=== PATIENT | female | born 1965 | race American Indian/Alaskan Native ===

== ENCOUNTER 2016-05-22 00:37 | Inpatient (IN) | payer MEDICAID ==
[2016-05-22 01:35] LABS: Basophils % (Auto) 0.8 % (0.0-1.8); Eosinophils % (Auto) 0.3 % (0.0-4.3); Hemoglobin 13.4 gm/dl (10.1-14.3); Mean Corpuscular HGB Conc 34 % (30-34); Mean Corpuscular Hemoglobin 33 pg (28-32); Mean Corpuscular Volume 98 fl (79-97); Platelet Count 159 K/mm3 (140-440); Red Blood Count 4.08 M/mm3 (3.65-5.03); Red Cell Distribution Width 13.9 % (13.2-15.2); White Blood Count 6.5 K/mm3 (4.5-11.0)
--- NOTE | 2016-05-22 01:39 | Emergency Department Report ---
ED General Adult HPI - General Chief complaint: Syncope Stated complaint: SYNCOPE EPISODE Time Seen by Provider: 05/22/16 01:20 Source: patient, EMS, RN notes reviewed Mode of arrival: Stretcher Limitations: No Limitations - History of Present Illness Initial comments: Is a 51-year-old female, previously unknown to me. Her primary care doctor is Dr. Katz. She is a past medical history of hypertension, high cholesterol, hypothyroidism, and takes estradiol. She is brought to the hospital by EMS for syncope and generalized weakness. Patient reports feeling ill" all day." She reports multiple episodes of nausea and vomiting, inability to tolerate liquid feeds. She also describes cough and spitting up. Patient reports that she was walking to her son's room, and then had a sudden onset of syncope/loss of consciousness. Prior to the event, there was no severe chest pain, no severe headache or posterior neck pain. Since her event, she landed on her head and complains of left-sided facial pain. There is no midline spinal pain. There is no extremity weakness. There is no extremity numbness. There is no bladder or bowel retention or incontinence, there is no saddle anesthesia. There is no hematemesis, there is no bright red blood per rectum. Patient reports compliance with her medications, and states no new medications. EMS documented a blood pressure in the field of 92/64. Patient was then found to be hypotensive again, with a blood pressure of 82/55. Upon arrival to the ER, patient had a blood pressure of 83/57. Repeat blood pressure was in the 100s. Patient reports that her weakness is constant. It increases with physical exertion, decreases with rest. There is no posterior leg pain. No recent trips greater than 4 hours. No recent hospital admissions. Patient did describe some chest tightness and pressure. -: Sudden Location: head, chest, abdomen Severity scale (0 -10): 7 Quality: aching Consistency: intermittent Improves with: rest Worsens with: movement Associated Symptoms: chest pain, cough, headaches, loss of appetite, malaise, nausea/vomiting, syncope, weakness - Related Data Home Medications Medication Instructions Recorded Confirmed Last Taken Estradiol 2 mg PO DAILY 05/22/16 05/22/16 Unknown Fenofibrate [Tricor] 145 mg PO QDAY 05/22/16 05/22/16 Unknown Fluticasone [Flonase] 1 spray NS QDAY 05/22/16 05/22/16 Unknown Levothyroxine [Synthroid] 125 mcg PO QAM 05/22/16 05/22/16 Unknown Vortioxetine Hydrobromide 10 mg PO DAILY 05/22/16 05/22/16 Unknown [Trintellix] traZODone [Desyrel] 100 mg PO QHS 05/22/16 05/22/16 Unknown Previous Rx's Medication Instructions Recorded Last Taken Type ALBUTEROL NEB's [Proventil 0.083% 2.5 mg IH TID PRN #90 nebu 05/24/16 Unknown Rx NEBS] Azithromycin [Zithromax TAB] 250 mg PO QDAY #4 tablet 05/24/16 Unknown Rx Ipratropium/Albuterol Sulfate 1 spray IH QID #1 aer.w.adap 05/24/16 Unknown Rx [Combivent Respimat] Nicotine [Habitrol] 7 mg TD QDAY PRN #30 patch 05/24/16 Unknown Rx Ondansetron [Zofran Odt] 4 mg PO Q6H #30 tab.rapdis 05/24/16 Unknown Rx guaiFENesin/CODEINE [Robitussin AC] 5 ml PO Q4H PRN #1 bottle 05/24/16 Unknown Rx predniSONE [Deltasone] 20 mg PO QDAY #5 tablet 05/24/16 Unknown Rx Allergies Allergy/AdvReac Type Severity Reaction Status Date / Time No Known Allergies Allergy Unverified 05/22/16 01:07 ED Review of Systems ROS: Stated complaint: SYNCOPE EPISODE Other details as noted in HPI Constitutional: malaise, weakness Eyes: denies: vision change ENT: denies: epistaxis Respiratory: see HPI Cardiovascular: syncope Gastrointestinal: as per HPI Genitourinary: as per HPI Musculoskeletal: as per HPI Skin: as per HPI Neurological: weakness ED Past Medical Hx - Medications Home Medications: Home Medications Medication Instructions Recorded Confirmed Last Taken Type Estradiol 2 mg PO DAILY 05/22/16 05/22/16 Unknown History Fenofibrate [Tricor] 145 mg PO QDAY 05/22/16 05/22/16 Unknown History Fluticasone [Flonase] 1 spray NS QDAY 05/22/16 05/22/16 Unknown History Levothyroxine [Synthroid] 125 mcg PO QAM 05/22/16 05/22/16 Unknown History Vortioxetine Hydrobromide 10 mg PO DAILY 05/22/16 05/22/16 Unknown History [Trintellix] traZODone [Desyrel] 100 mg PO QHS 05/22/16 05/22/16 Unknown History ALBUTEROL NEB's [Proventil 0.083% 2.5 mg IH TID PRN #90 nebu 05/24/16 Unknown Rx NEBS] Azithromycin [Zithromax TAB] 250 mg PO QDAY #4 tablet 05/24/16 Unknown Rx Ipratropium/Albuterol Sulfate 1 spray IH QID #1 aer.w.adap 05/24/16 Unknown Rx [Combivent Respimat] Nicotine [Habitrol] 7 mg TD QDAY PRN #30 patch 05/24/16 Unknown Rx Ondansetron [Zofran Odt] 4 mg PO Q6H #30 tab.rapdis 05/24/16 Unknown Rx guaiFENesin/CODEINE [Robitussin AC] 5 ml PO Q4H PRN #1 bottle 05/24/16 Unknown Rx predniSONE [Deltasone] 20 mg PO QDAY #5 tablet 05/24/16 Unknown Rx ED Physical Exam - General Limitations: No Limitations General appearance: alert, in no apparent distress - Head Head exam: Present: atraumatic, normocephalic - Eye Eye exam: Present: normal appearance, EOMI. Absent: nystagmus - ENT ENT exam: Present: normal exam, normal orophraynx, mucous membranes moist, normal external ear exam - Neck Neck exam: Present: normal inspection, full ROM. Absent: tenderness, meningismus - Respiratory Respiratory exam: Present: normal lung sounds bilaterally. Absent: respiratory distress, wheezes, rales, rhonchi, stridor, chest wall tenderness - Cardiovascular Cardiovascular Exam: Present: regular rate, normal rhythm, normal heart sounds. Absent: bradycardia, tachycardia, irregular rhythm, systolic murmur, diastolic murmur, rubs, gallop - GI/Abdominal GI/Abdominal exam: Present: soft, tenderness (mild diffuse abdominal tenderness , no rebound, guarding or peritoneal signs.), normal bowel sounds. Absent: distended, guarding, rebound, rigid, pulsatile mass - Rectal Rectal exam: Present: normal inspection, normal rectal tone, heme (-) stool, other (during the rectal examination, I am escorted by ER nurse Armida Garcia) - Extremities Exam Extremities exam: Present: normal inspection, full ROM, normal capillary refill. Absent: tenderness, pedal edema, joint swelling, calf tenderness - Back Exam Back exam: Present: normal inspection, full ROM. Absent: tenderness, CVA tenderness (R), CVA tenderness (L), muscle spasm, paraspinal tenderness, vertebral tenderness - Neurological Exam Neurological exam: Present: alert, oriented X3, other (Extraocular movements intact. Tongue midline. No facial droop. Facial sensation intact to light touch in the V1, V2, V3 distribution bilaterally. 5 and 5 strength in 4 extremities.. Sensation is intact to light touch in 4 extremities.). Absent: motor sensory deficit - Psychiatric Psychiatric exam: Present: normal affect, normal mood - Skin Skin exam: Present: warm, dry, intact, normal color. Absent: rash ED Course Vital Signs 05/22/16 05/22/16 05/22/16 01:03 01:37 01:43 Temperature 97.9 F 97.2 F L Pulse Rate 71 76 Respiratory 20 20 Rate Blood Pressure 83/57 Blood Pressure 103/75 [Right] O2 Sat by Pulse 100 97 97 Oximetry 05/22/16 05/22/16 05/22/16 03:00 05:00 06:01 Temperature Pulse Rate 78 77 Respiratory 20 20 20 Rate Blood Pressure Blood Pressure 100/60 93/53 [Right] O2 Sat by Pulse 97 97 Oximetry 05/22/16 05/22/16 05/22/16 06:31 07:00 09:00 Temperature 97.8 F Pulse Rate 68 Respiratory 20 18 20 Rate Blood Pressure Blood Pressure 100/55 98/51 [Right] O2 Sat by Pulse 100 96 Oximetry 05/22/16 05/22/16 05/22/16 11:00 14:03 19:47 Temperature 97.8 F Pulse Rate 89 64 Respiratory 16 16 16 Rate Blood Pressure Blood Pressure 104/66 98/51 100/51 [Right] O2 Sat by Pulse 97 100 97 Oximetry 05/22/16 20:14 Temperature Pulse Rate Respiratory 18 Rate Blood Pressure Blood Pressure [Right] O2 Sat by Pulse Oximetry - Reevaluation(s) Reevaluation #1: 05/22/16 02:17 Differential diagnosis: Vasovagal event, orthostasis, volume depletion, electrolyte imbalance, concussion, arrhythmia, pulmonary embolus, structural cardiac disease, acute coronary syndrome, aortic disease Assessment and plan: 51-year-old female with multiple documented episodes of hypotension, and reported nausea and vomiting. Clinically, I think the patient is most likely volume depleted. Her blood pressure is in the 100s. She has a GCS of 15, with an NIH score of 0. She has no pulmonary embolus or DVT risk factors, and she is low risk by well's criteria. There is no midline cervical spine pain or tenderness, and she is cleared through the [place] C-spine rules , as well as through the Nexus criteria. She was rectally afebrile, with brown stool that was guaiac negative. 2 L of IV fluid are ordered. She is found to be hypokalemic. Magnesium is pending. D-dimer is pending. Chest x-ray is negative. Plan to admit for hypotension, syncope. Reevaluation #2: 05/22/16 05:[address] scan of the head negative. CT scan of the chest, abdomen and pelvis pending. Laboratory studies demonstrated hyperthyroidism and hypo- kalemia. Given syncope, chest pressure, hypotension, patient to be admitted for further management. Case is discussed with the Hospital physician, Dr. Powell, who accepts the patient to his service. Patient will remain in the ER pending results of the CAT scan chest, abdomen and pelvis. Reevaluation #3: 05/22/16 05:46 cta chest negative 05/22/16 06:08 ED Medical Decision Making - Lab Data Result diagrams: 05/22/16 01:24 05/23/16 05:13 Vital Signs 05/22/16 05/22/16 05/22/16 01:03 01:37 01:43 Temperature 97.9 F 97.2 F L Pulse Rate 71 76 Respiratory 20 20 Rate Blood Pressure 83/57 Blood Pressure 103/75 [Right] O2 Sat by Pulse 100 97 97 Oximetry Lab Results 05/22/16 05/22/16 Range/Units 01:24 01:24 WBC 6.5 (4.5-11.0) K/mm3 RBC 4.08 (3.65-5.03) M/mm3 Hgb 13.4 (10.1-14.3) gm/dl Hct 40.0 (30.3-42.9) % MCV 98 H (79-97) fl MCH 33 H (28-32) pg MCHC 34 (30-34) % RDW 13.9 (13.2-15.2) % Plt Count 159 (140-440) K/mm3 Lymph % (Auto) 37.7 H (13.4-35.0) % [place] % (Auto) 5.9 (0.0-7.3) % Eos % (Auto) 0.3 (0.0-4.3) % Baso % (Auto) 0.8 (0.0-1.8) % Lymph # 2.5 (1.2-5.4) K/mm3 [place] # 0.4 (0.0-0.8) K/mm3 Eos # 0.0 (0.0-0.4) K/mm3 Baso # 0.1 (0.0-0.1) K/mm3 Seg Neutrophils % 55.3 (40.0-70.0) % Seg Neutrophils # 3.6 (1.8-7.7) K/mm3 Sodium 134 L (137-145) mmol/L Potassium 3.0 L (3.6-5.0) mmol/L Chloride 94.3 L (98-107) mmol/L Carbon Dioxide 21 L (22-30) mmol/L Anion Gap 22 mmol/L BUN 10 (7-17) mg/dL Creatinine 0.8 (0.7-1.2) mg/dL Estimated GFR > 60 ml/min BUN/Creatinine Ratio 12.50 % Glucose 100 (65-100) mg/dL Calcium 8.7 (8.4-10.2) mg/dL Troponin T < 0.010 (0.00-0.029) ng/mL - EKG Data When compared to previous EKG there are: previous EKG unavailable 05/22/16 02:19 normal sinus, 63 bpm, low voltage, QTC 454 ms, not morphologically consistent with STEMI. - Radiology Data Radiology results: image reviewed interpreted by me: Chest x-ray within normal limits Critical care attestation.: If time is entered above; I have spent that time in minutes in the direct care of this critically ill patient, excluding procedure time. ED Disposition Clinical Impression: Hypotension, Syncope, Hypokalemia Disposition: OP ADMITTED IP TO THIS HOSP Is pt being admited?: Yes Condition: Good
[2016-05-22 01:57] LABS: Blood Urea Nitrogen 10 mg/dL (7-17); Calcium 8.7 mg/dL (8.4-10.2); Carbon Dioxide 21 mmol/L (22-30); Chloride 94.3 mmol/L (98-107); Glucose 100 mg/dL (65-100); Sodium 134 mmol/L (137-145)
[2016-05-22 01:59] LABS: Anion Gap 22 mmol/L
[2016-05-22] MEDS ORDERED: NACL 0.9% 1000 ML IV ONE (02:00)
[2016-05-22] MEDS ORDERED: ZOFRAN IV ONE (02:13)
[2016-05-22] MEDS ORDERED: K-DUR PO ONE (02:13)
[2016-05-22 02:20] LABS: Urine Drugs of Abuse Note Disclamer
[2016-05-22 02:40] LABS: Bacteria,Urine 4+ /HPF (Negative); Bilirubin,Urine NEG (Negative); Blood,Urine NEG (Negative); Ketones,Urine NEG (Negative); Leukocyte Esterase,Urine NEG (Negative); Mucus,Urine FEW /HPF; Nitrite,Urine NEG (Negative); Protein,Urine <15 mg/dL mg/dL (Negative); Urobilinogen,Urine < 2.0 mg/dL (<2.0)
[2016-05-22 02:51] LABS: INR 1.85 (0.87-1.13)
[2016-05-22] MEDS ORDERED: NACL ONE (03:00)
[2016-05-22] MEDS: KCL 10MEQ/100ML 100 ML IV SCH ×2 (03:36→06:51)
--- NOTE | 2016-05-22 05:12 | Cat Scan Report ---
FINAL REPORT PROCEDURE: CT HEAD/BRAIN WO CON TECHNIQUE: Computerized tomography of the head was performed without contrast material. HISTORY: headache syncope COMPARISON: No prior studies are available for comparison. FINDINGS: Skull and scalp: Normal. Paranasal sinuses: Normal. Ventricles and subarachnoid spaces: Normal. Cerebrum: No evidence of hemorrhage, acute infarction or mass . Cerebellum and brainstem: No evidence of hemorrhage, acute infarction or mass. Vasculature: Normal. Comments: None. IMPRESSION: Normal Examination
[2016-05-22] MEDS ORDERED: TORADOL IV ONE (05:46)
--- NOTE | 2016-05-22 06:04 | Cat Scan Report ---
FINAL REPORT PROCEDURE: CT ANGIO CHEST TECHNIQUE: Computerized tomographic angiography of the chest was performed after the IV injection of iodinated nonionic contrast including image processing. The image data was postprocessed using 2-dimensional multiplanar reformatted (MPR) and 3-dimensional (MIP and/or volume rendered) techniques. HISTORY: ? pe syncope COMPARISON: No prior studies are available for comparison. FINDINGS: Heart and pericardium: Normal. Thoracic aorta: Normal. Pulmonary vasculature: Normal. Lymph nodes: No enlarged thoracic lymph nodes. Lungs: There is interlobular pulmonary septal thickening suggesting pulmonary edema versus interstitial pneumonitis. There is no airspace consolidation. There are scattered benign-appearing cysts. There are no effusions or pneumothoraces.. Musculoskeletal structures: No significant abnormality. Upper abdominal structures: No significant abnormality. IMPRESSION: There is no thoracic aortic aneurysm or dissection. There is no pulmonary embolism. There is interlobular pulmonary septal thickening suggesting pulmonary edema versus interstitial pneumonitis. There is no airspace consolidation. There are scattered benign-appearing cysts. There are no effusions or pneumothoraces.
--- NOTE | 2016-05-22 06:20 | Cat Scan Report ---
FINAL REPORT PROCEDURE: CT ABDOMEN PELVIS W CON TECHNIQUE: Computerized axial tomography of the abdomen and pelvis was performed after the IV injection of iodinated nonionic contrast. HISTORY: cp syncope abd pain n/v COMPARISON: No prior studies are available for comparison. FINDINGS: Visualized lower thorax: No significant abnormality. Liver: Normal size and attenuation. Spleen: Normal size and attenuation. Gallbladder and biliary system: Normal. Pancreas: Normal. Adrenals: Normal. Kidneys: Normal. GI tract: There are diverticula of the colon. There is no diverticulitis or colitis, obstruction or mass. The appendix is normal. The stomach and small bowel are unremarkable.. Lymph nodes and mesentery: Normal. Vasculature: Normal. Bladder: Normal. Reproductive organs: Uterus and ovaries are unremarkable.. Peritoneum: There is no ascites, free air, abscess or adenopathy.. Musculoskeletal structures: No significant abnormality. Other: None. IMPRESSION: There are diverticula of the colon. There is no diverticulitis or colitis, obstruction or mass. The appendix is normal. The stomach and small bowel are unremarkable.. Uterus and ovaries are unremarkable.. There is no ascites, free air, abscess or adenopathy..
--- NOTE | 2016-05-22 07:23 | XRay Report ---
ROUTINE CHEST, TWO VIEWS: HISTORY: Shortness of breath. The trachea, heart, mediastinal contour, lung lora and bony thorax are unremarkable. IMPRESSION: Unremarkable chest x-ray.
--- NOTE | 2016-05-22 08:10 | Admit Criteria Form ---
Admission Criteria Documentation: CARDIOLOGY GRG Clinical Indications for Admission to Inpatient Care ( Place 'X' for any and all applicable criteria): Hospital admission is needed for appropriate care of the patient because of ANY ONE of the following (1): [X ] I. Hemodynamic instability as indicated by ALL of the following (1)(2)(3 )(4)(5) [ X]a) Vital signs or other findings not as expected for chronic patient condition or baseline [ X]b) Instability indicated by ANY ONE of the following: [X ]i) Hypotension [ ]ii) Symptomatic Tachycardia unresponsive to treatment ( e.g., analgesia, fluids, sedation as indicated) [ ]iii) Inadequate perfusion indicated by ANY ONE of the following: [ ] 1) Lactic acidosis (> 2 mmol/L) [ ] 2) New abnormal capillary refill (> 3 seconds) [ ] 3) Reduced urine output [ ] 4) New altered mental status [ ]iv) Orthostatic vital sign changes unresponsive to treatment (e.g., fluids) [ ]v) IV inotropic or vasopressor medication required to maintain adequate blood pressure or perfusion [ ] II. Severe heart failure as indicated by ANY ONE of the following(17)(18) [ ]a) Respiratory distress [ ]b) Hypotension [ ]c) Anasarca (refractory to outpatient therapy) [ ]d) Cardiac arrhythmias of immediate concern [ ]e) Myocardial ischemia [ ] III. Cardiac arrhythmias or findings of immediate concern indicated by ANY ONE of the following (19)(20): [ ] a) Heart rhythms that are inherently dangerous or unstable indicated by ANY ONE of the following (21)(22)(23): [ ] i) Resuscitated ventricular fibrillation or cardiac arrest [ ] ii) Ventricular escape rhythm [ ] iii) Sustained ventricular tachycardia (30 seconds or more of ventricular rhythm at greater than 100 beats per minute) [ ] iv) Nonsustained ventricular tachycardia and ANY ONE of the following: [ ] 1) Suspected cardiac ischemia as cause or consequence of ventricular tachycardia [ ] 2) In setting of acute myocarditis [ ] b) Unstable cardiac conduction defects indicated by ANY ONE of the following(23)(24)(25) [ ] i) Type II second-degree atrioventricular block [ ]ii) Third-degree atrioventricular block [ ]iii) New-onset left bundle branch block with suspected myocardial ischemia [ ]c) Any heart rhythm and ANY ONE of the following (21)(22)(26)(27) (28) [ ] i) Continuous long-term ECG monitoring needed (e.g., initiation of drug requiring monitoring for more than 24 hours) [ ] ii) Patient has automatic implanted cardioverter defibrillator that is repeatedly firing, malfunctioning, or in need of immediate adjustment of settings beyond the scope of ambulatory or observation care [ ]d) Heart rhythms of concern due to ANY ONE of the following: [ ] i) Hypotension [ ] ii) Respiratory distress [ ] iii) Association with other significant symptoms (e.g., bradycardia with syncope or ongoing dizziness, supraventricular tachycardia with chest pain (14)(15)(17) [ ] IV. Monitoring for cardiac contusion beyond the scope of observation care needed [A](30)(31)(32) [ ] V. Surgical or device complication (e.g., valve replacement complication , pacemaker dysfunction) (35)(41)(44)(45)(46) [ ] . Inpatient palliative care needed. [B](49) Also use Inpatient Palliative Care Criteria [ ] VII. Nonbacterial thrombotic (marantic) endocarditis (36)(43)(47)(48) [ ] VIII. Cardiology condition, symptom, or finding for which emergency and observation care has failed or are not considered appropriate. [ ] IX. Acute valvular disease requiring inpatient as indicated by ANY ONE of the following (41) [ ]a) Acute valvular regurgitation (42) [ ]b) Noninfectious valvulitis (43) [ ]c) Obstructive valve thrombosis [ ]d) Paravalvular leak [ ]e) Other significant valvular disorder remaining after emergency or observation level of care (as appropriate) [ ]X. Pericardial disease requiring inpatient treatment as indicated by ANY ONE of the following (33)(34)(35)(36)(37) [ ]a) Suspected tamponade (38)(39)(40) [ ]b) Hemopericardium [ ]c) Other significant pericardial disorder remaining after emergency or observation level of care (as appropriate) [ ] XI. Cardiac ischemia beyond scope of emergency and observation care. [ ] XII. Hypertension requiring inpatient treatment as indicated by ANY ONE of the following (6)(7)(8) [ ]a) SBP greater than 220 mm Hg or DBP greater than 120 mmHg despite treatment [ ]b) SBP greater than 140 mm Hg or DBP greater than 100 mm Hg with evidence of acute end organ damage as indicated by ANY ONE of the following [ ] i) Altered mental status [ ] ii) Acute renal failure as indicated by new onset of ANY ONE of the following (9)(10)(11)(12)(13) [ ]1) 3-fold rise in serum creatinine from baseline [ ]2) Serum creatinine greater than 4 mg/dL ( 354 micromoles/L) with acute rise greater than 0.5 mg/dL (44.2 micromoles/L) [ ]3) Reduction of more than 75% in estimated glomerular filtration rate from baseline [ ]4) Estimated glomerular filtration rate less than 35 mL/min/1.73m2 (0.59 mL/sec/1.73m2) in child up to 18 years of age [ ]5) Cessation of urine output indicated by ALL of the following [ ]A. Adequate volume status [ ]B. Inadequate urine output as indicated by ANY ONE of the following [ ]a. Urine output less than 0.3 mL/kg/hr for 24 hours [ ]b. Anuria (urine output less than 0.1 mL/kg/hr) for 12 hours [ ] iii) Aortic dissection [ ] iv) Myocardial Ischemia [ ] v) Left ventricular heart failure [ ]vi) Retinal Hemorrhage [ ]vii) Other significant finding [ ]c) Hypertension in child requiring inpatient treatment as indicated by ALL of the following(14)(15)(16) [ ] i) Outpatient treatment not effective, not available, or not appropriate [ ]ii) SBP or DBP greater than 95th percentile for age [ ]iii) Evidence of acute end organ damage as indicated by ANY ONE of the following [ ]1) Altered mental status [ ]2) Acute renal failure as indicated by new onset of ANY ONE of the following(9)(10)(11)(12)(13) [ ]A. 3-fold rise in serum creatinine from baseline [ ]B. Serum creatinine greater than 4 mg/dL (354 micromoles/L) with acute rise greater than 0.5 mg/dL (44.2 micromoles/L) [ ]C. Reduction of more than 75% in estimated glomerular filtration rate from baseline [ ]D. Estimated glomerular filtration rate less than 35 mL/min/1.73m2 (0.59 mL/sec/1.73m2) in child up to 18 years of age [ ]E. Cessation of urine output indicated by ALL of the following [ ]a. Adequate volume status [ ]b. Inadequate urine output as indicated by ANY ONE of the following [ ]i) Urine output less than 0.3 mL/kg/hr for 24 hours [ ]ii) Anuria ( urine output less than 0.1 mL/kg/hr) for 12 hours [ ]3) Severe headache [ ]4) Visual disturbance [ ]5) Retinal hemorrhage [ ]6) Other significant finding [ ]XIII. Complications of transplanted heart indicated by ANY ONE of the following(61): [ ]a) Acute graft rejection requiring inpatient management (eg, intravenous immunosuppression)(62)(63) [ ]b) Acute graft heart failure indicated by ANY ONE of the following(64): [ ]i) Hemodynamic instability [ ]ii) Cardiac arrhythmias of immediate concern [ ]iii) Pulmonary edema that is very severe (eg, mechanical ventilation needed, imminent or likely, need for 100% oxygen to keep oxygen saturation above 90%) [ ]iv) Pulmonary edema that is persistent as indicated by ALL of the following: [ ]1) New need for oxygen therapy to keep oxygen saturation above 90% (or increased FiO2 need from baseline) [ ]2) Has not improved sufficiently with emergency department or observation care IV diuretics or other heart failure treatments[E] [ ]v) Altered mental status that is severe or persistent [ ]vi) Increased creatinine (new on laboratory test) with reduction of more than 50% in estimated glomerular filtration rate from baseline [ ]vii) Progressively (ongoing) rising creatinine (known from past laboratory test) with reduction of more than 25% in estimated glomerular filtration rate from baseline [ ]viii) Acute renal failure [ ]ix) Acute peripheral ischemia (eg, examination shows pulseless, cool, mottled, or cyanotic extremity) [ ]x) Pulmonary artery catheter monitoring needed [ ]xi) Other sign or symptom of heart failure requiring inpatient treatment (ie, too severe or not responsive to outpatient and observation care treatment) [ ]c) Infection requiring inpatient management (eg, Hemodynamic instability, need for intravenous antimicrobial treatment)(66)(67)(68)(69)(70) [ ]d) Cardiac allograft vasculopathy requiring inpatient management ( eg evidence of cardiac ischemia)(71) [ ]e) Other complication of transplanted heart (eg, stroke, severe pulmonary hypertension, severe valvular dysfunction) requiring inpatient management(72) The original [facility] AOL content created by [employer] has been revised. The portions of the content which have been revised are identified through the use of italic text or in bold, and [facility] has neither reviewed nor approved the modified material. All other unmodified content is copyright [facility] [employer]. Please see references footnoted in the original [facility] edition 2016 Admission Criteria Met: Yes
[2016-05-22] MEDS ORDERED: MILK OF MAGNESIA PO PRN (11:03)
[2016-05-22] MEDS ORDERED: TORADOL IV PRN (11:13)
--- NOTE | 2016-05-22 11:19 | History and Physical Report ---
History of Present Illness Chief complaint: I passed out History of present illness: This is a 51-year-old with past medical history of hypertension hyperlipidemia and hypothyroidism on hormone replacement therapy who presents with 2-3 days of nausea and vomiting. She notes that she does not do what she ate to cause that she started having intractable nausea and vomiting nonbilious nonbloody. She notes that she was unable to tolerate or keep anything down by mouth she continued to vomit, also complaining of malaise and cough with scant sputum and fevers. However she was walking to her son's room she states that she passed out she initially felt dizzy for a few seconds and then fell down to the floor she hit her head face and the left side of her jaw. She was only out of consciousness for a few seconds she will go up and she was back to her normal mentation immediately prompted her to come into the hospital. Past History Past Medical History: other (hypertension, hyperlipidemia, hypothyroidism) Past Surgical History: Other (thyroidectomy) Social history: smoking (current every day smoker half a pack a day) Family history: hypertension Medications and Allergies Allergies Allergy/AdvReac Type Severity Reaction Status Date / Time No Known Allergies Allergy Unverified 05/22/16 01:07 Home Medications Medication Instructions Recorded Confirmed Last Taken Type ALBUTEROL NEB's [Proventil] 2.5 mg IH TID PRN 05/22/16 05/22/16 Unknown History Bisoprolol/Hctz [Ziac 10-6.25] 1 each PO DAILY 05/22/16 05/22/16 Unknown History Estradiol 2 mg PO DAILY 05/22/16 05/22/16 Unknown History Fenofibrate [Tricor] 145 mg PO QDAY 05/22/16 05/22/16 Unknown History Fluticasone [Flonase] 1 spray NS QDAY 05/22/16 05/22/16 Unknown History Levothyroxine [Synthroid] 125 mcg PO QAM 05/22/16 05/22/16 Unknown History Lisinopril [Zestril] 20 mg PO BID 05/22/16 05/22/16 Unknown History Vortioxetine Hydrobromide 10 mg PO DAILY 05/22/16 05/22/16 Unknown History [Trintellix] amLODIPine [Norvasc] 5 mg PO DAILY 05/22/16 05/22/16 Unknown History traZODone [Desyrel] 100 mg PO QHS 05/22/16 05/22/16 Unknown History Active Meds: Active Medications Acetaminophen (Tylenol) 650 mg PO Q4H PRN PRN Reason: Pain MILD(1-3)/Fever >100.5/VAL[place] Albuterol (Proventil) 2.5 mg IH TID PRN PRN Reason: Wheezing Bisacodyl (Dulcolax) 10 mg SD QDAY PRN PRN Reason: Constipation unrelieved by MOM Enoxaparin Sodium (Lovenox) 40 mg SUB-Q QDAY MIESHA Fenofibrate (Tricor) 145 mg PO QDAY MIESHA Fluticasone Propionate (Flonase) mcg NS QDAY MIESHA Potassium Chloride 40 meq/ (Sodium Chloride) 1,020 mls @ 100 mls/hr IV DIRECT MIESHA Levothyroxine Sodium (Synthroid) 125 mcg PO QAM MIESHA Magnesium Hydroxide (Milk Of Magnesia) 30 ml PO Q4H PRN PRN Reason: Constipation Metoclopramide HCl (Reglan) 10 mg IV Q6H MIESHA Miscellaneous Medication (Vortioxetine Hydrobromide [Trintellix]) 10 mg PO DAILY MIESHA Morphine Sulfate (Morphine) 2 mg IV Q4H PRN PRN Reason: Pain, Moderate (4-6) Ondansetron HCl (Zofran) 4 mg IV Q8H PRN PRN Reason: N/V unrelieved by Reglan Trazodone HCl (Desyrel) 100 mg PO QHS [facility] Review of Systems All systems: negative Constitutional: fatigue, weakness, malaise Gastrointestinal: nausea, vomiting, no diarrhea Exam - Physical Exam Narrative exam: General: Appears exhausted, nontoxic appearance HEENT: MMM, EOMI cardiac: S1-S2 heard lungs: clear to auscultation, abdomen: soft, nontender, nondistended bowel sounds positive extremities: no edema clubbing or cyanosis Skin: no rash or lesion Neuro: no focal deficit Psych: appropriate behavior and mood, cognition intact - Constitutional Vitals: Temp Pulse Resp BP Pulse Ox 97.2 F L 77 20 93/53 97 05/22/16 01:37 05/22/16 05:00 05/22/16 06:31 05/22/16 05:00 05/22/16 05:00 Results - Labs CBC & Chem 7: 05/22/16 01:24 05/23/16 05:13 Labs: Laboratory Last Values WBC 6.5 K/mm3 (4.5-11.0) 05/22/16 01:24 RBC 4.08 M/mm3 (3.65-5.03) 05/22/16 01:24 Hgb 13.4 gm/dl (10.1-14.3) 05/22/16 01:24 Hct 40.0 % (30.3-42.9) 05/22/16 01:24 MCV 98 fl (79-97) H 05/22/16 01:24 MCH 33 pg (28-32) H 05/22/16 01:24 MCHC 34 % (30-34) 05/22/16 01:24 RDW 13.9 % (13.2-15.2) 05/22/16 01:24 Plt Count 159 K/mm3 (140-440) 05/22/16 01:24 Lymph % (Auto) 37.7 % (13.4-35.0) H 05/22/16 01:24 [place] % (Auto) 5.9 % (0.0-7.3) 05/22/16 01:24 Eos % (Auto) 0.3 % (0.0-4.3) 05/22/16 01:24 Baso % (Auto) 0.8 % (0.0-1.8) 05/22/16 01:24 Lymph # 2.5 K/mm3 (1.2-5.4) 05/22/16 01:24 [place] # 0.4 K/mm3 (0.0-0.8) 05/22/16 01:24 Eos # 0.0 K/mm3 (0.0-0.4) 05/22/16 01:24 Baso # 0.1 K/mm3 (0.0-0.1) 05/22/16 01:24 Seg Neutrophils % 55.3 % (40.0-70.0) 05/22/16 01:24 Seg Neutrophils # 3.6 K/mm3 (1.8-7.7) 05/22/16 01:24 PT 21.3 Sec. (12.2-14.9) H 05/22/16 02:04 INR 1.85 (0.87-1.13) H 05/22/16 02:04 D-Dimer 860.16 ng/mlDDU (0-234) H 05/22/16 02:04 Sodium 134 mmol/L (137-145) L 05/22/16 01:24 Potassium 3.0 mmol/L (3.6-5.0) L 05/22/16 01:24 Chloride 94.3 mmol/L (98-107) L 05/22/16 01:24 Carbon Dioxide 21 mmol/L (22-30) L 05/22/16 01:24 Anion Gap 22 mmol/L 05/22/16 01:24 BUN 10 mg/dL (7-17) 05/22/16 01:24 Creatinine 0.8 mg/dL (0.7-1.2) 05/22/16 01:24 Estimated GFR > 60 ml/min 05/22/16 01:24 BUN/Creatinine Ratio 12.50 % 05/22/16 01:24 Glucose 100 mg/dL (65-100) 05/22/16 01:24 Calcium 8.7 mg/dL (8.4-10.2) 05/22/16 01:24 Magnesium 1.8 mg/dL (1.7-2.3) 05/22/16 02:04 Troponin T < 0.010 ng/mL (0.00-0.029) 05/22/16 01:24 TSH 0.010 mlU/mL (0.270-4.200) L 05/22/16 02:04 Urine Color Straw (Yellow) 05/22/16 02:06 Urine Turbidity Clear (Clear) 05/22/16 02:06 Urine pH 5.0 (5.0-7.0) 05/22/16 02:06 Ur Specific [place] 1.003 (1.003-1.030) 05/22/16 02:06 Urine Protein <15 mg/dl mg/dL (Negative) 05/22/16 02:06 Urine Glucose (UA) Neg mg/dL (Negative) 05/22/16 02:06 Urine Ketones Neg mg/dL (Negative) 05/22/16 02:06 Urine Blood Neg (Negative) 05/22/16 02:06 Urine Nitrite Neg (Negative) 05/22/16 02:06 Urine Bilirubin Neg (Negative) 05/22/16 02:06 Urine Urobilinogen < 2.0 mg/dL (<2.0) 05/22/16 02:06 Ur Leukocyte Esterase Neg (Negative) 05/22/16 02:06 Urine WBC (Auto) 2.0 /HPF (0.0-6.0) 05/22/16 02:06 Urine RBC (Auto) 2.0 /HPF (0.0-6.0) 05/22/16 02:06 U Epithel Cells (Auto) 1.0 /HPF (0-13.0) 05/22/16 02:06 Urine Bacteria (Auto) 4+ /HPF (Negative) 05/22/16 02:06 Urine Mucus Few /HPF 05/22/16 02:06 Urine Opiates Screen Presumptive positive 05/22/16 02:06 Urine Methadone Screen Presumptive positive 05/22/16 02:06 Ur Barbiturates Screen Presumptive negative 05/22/16 02:06 Ur Phencyclidine Scrn Presumptive negative 05/22/16 02:06 Ur Amphetamines Screen Presumptive negative 05/22/16 02:06 U Benzodiazepines Scrn Presumptive negative 05/22/16 02:06 Urine Cocaine Screen Presumptive negative 05/22/16 02:06 U Marijuana (THC) Screen Presumptive positive 05/22/16 02:06 Drugs of Abuse Note Disclamer 05/22/16 02:06 - Imaging and Cardiology CT Scan - head: image reviewed (no abnormalities) Assessment and Plan Assessment and plan: 1. Syncope This is most likely vasovagal and due to dehydration, which he did IV fluids 2. Hypotension This is most likely due to dehydration from protracted vomiting, treated with IV fluids, discontinue blood pressure medications for now, 3. Hypokalemia Due to vomiting, replete IV 4. Intractable nausea vomiting/acute gastroenteritis Supportive care with IV fluids, antiemetics, pain meds 5. Hypertension Patient is currently hypotensive, blood pressure meds have been held 6. Hyperlipidemia Continue fenofibrate 7. Hypothyroidism Continue Synthroid, check thyroid function tests. 8. Tobacco abuse counseled 10 minutes about cessation, states that she is cutting down, nicotine patch offered Plan of care discussed with patient/family: Yes
[2016-05-22] MEDS ORDERED: TYLENOL ONE (11:22)
[2016-05-22] MEDS ORDERED: DULCOLAX PR PRN (12:00)
[2016-05-22] MEDS ORDERED: PROVENTIL IH PRN (12:00)
[2016-05-22] MEDS: REGLAN IV SCH ×2 (12:08→20:14)
[2016-05-22] MEDS: ZOFRAN IV PRN (12:08)
[2016-05-22] MEDS: TYLENOL PO PRN ×2 (12:09→22:51)
[2016-05-22] MEDS: KCL 40 MEQ in NACL 0.45% 1000 ML 1,000 ML IV SCH (12:09)
[2016-05-22] MEDS: TORADOL IV PRN ×2 (12:09→19:57)
[2016-05-22] MEDS ORDERED: HABITROL TD PRN (14:00)
[2016-05-22] MEDS: MORPHINE IV PRN ×2 (14:00→20:14)
[2016-05-22] MEDS: DESYREL PO SCH (22:53)
[2016-05-23] MEDS: KCL 40 MEQ in NACL 0.45% 1000 ML 1,000 ML IV SCH ×2 (00:06→05:16)
[2016-05-23 06:03] LABS: BUN/Creatinine Ratio 11.66; Blood Urea Nitrogen 7 mg/dL (7-17); Calcium 8.1 mg/dL (8.4-10.2); Carbon Dioxide 22 mmol/L (22-30); Chloride 105.8 mmol/L (98-107); Glucose 96 mg/dL (65-100); Potassium 4.3 mmol/L (3.6-5.0); Sodium 139 mmol/L (137-145)
[2016-05-23 06:08] LABS: Anion Gap 16 mmol/L
[2016-05-23] MEDS: SYNTHROID PO SCH (06:19)
[2016-05-23] MEDS: REGLAN IV SCH ×4 (06:20→14:07)
[2016-05-23] MEDS: TYLENOL PO PRN (07:55)
[2016-05-23] MEDS ORDERED: NON-FORMULARY (Vortioxetine Hydrobromide [Trintellix] 10 MG) PO SCH (10:00)
[2016-05-23] MEDS: LOVENOX SUB-Q SCH (10:29)
[2016-05-23] MEDS: TRICOR PO SCH (10:30)
[2016-05-23] MEDS: FLONASE NS SCH (10:30)
[2016-05-23] MEDS: TORADOL IV PRN ×2 (10:31→18:23)
--- NOTE | 2016-05-23 12:10 | Progress Note ---
Assessment and Plan Assessment and plan: 1. Syncope This is most likely vasovagal and due to dehydration, continue IV fluids 2. Hypotension This is most likely due to dehydration from protracted vomiting, treated with IV fluids, discontinue blood pressure medications for now, 3. Hypokalemia Due to vomiting, repleted IV now normalized 4. Intractable nausea vomiting/acute gastroenteritis Supportive care with IV fluids, antiemetics, pain meds 5. Hypertension Patient is currently hypotensive, blood pressure meds have been held 6. Hyperlipidemia Continue fenofibrate 7. Hypothyroidism Continue Synthroid, check thyroid function tests. 8. Tobacco abuse counseled 10 minutes about cessation, states that she is cutting down, nicotine patch offered 9. Subacute Bronchitis/ Interstitial Pneumonitis start nebs, abx and low dose steroid History Interval history: nausea is improved, denies dizzyness, complaining of cough, which has been going on for months and she thinks it is due to mold exposure at her home Hospitalist Physical - Physical exam Narrative exam: General: Appears exhausted, nontoxic appearance HEENT: MMM, EOMI cardiac: S1-S2 heard lungs: clear to auscultation, abdomen: soft, nontender, nondistended bowel sounds positive extremities: no edema clubbing or cyanosis Skin: no rash or lesion Neuro: no focal deficit Psych: appropriate behavior and mood, cognition intact - Constitutional Vitals: Temp Pulse Resp BP Pulse Ox 98.5 F 71 18 123/86 97 05/23/16 12:08 05/23/16 12:08 05/23/16 12:08 05/23/16 12:08 05/23/16 12:08 Results - Labs CBC & Chem 7: 05/22/16 01:24 05/23/16 05:13 Labs: Laboratory Last Values WBC 6.5 K/mm3 (4.5-11.0) 05/22/16 01:24 RBC 4.08 M/mm3 (3.65-5.03) 05/22/16 01:24 Hgb 13.4 gm/dl (10.1-14.3) 05/22/16 01:24 Hct 40.0 % (30.3-42.9) 05/22/16 01:24 MCV 98 fl (79-97) H 05/22/16 01:24 MCH 33 pg (28-32) H 05/22/16 01:24 MCHC 34 % (30-34) 05/22/16 01:24 RDW 13.9 % (13.2-15.2) 05/22/16 01:24 Plt Count 159 K/mm3 (140-440) 05/22/16 01:24 Lymph % (Auto) 37.7 % (13.4-35.0) H 05/22/16 01:24 [place] % (Auto) 5.9 % (0.0-7.3) 05/22/16 01:24 Eos % (Auto) 0.3 % (0.0-4.3) 05/22/16 01:24 Baso % (Auto) 0.8 % (0.0-1.8) 05/22/16 01:24 Lymph # 2.5 K/mm3 (1.2-5.4) 05/22/16 01:24 [place] # 0.4 K/mm3 (0.0-0.8) 05/22/16 01:24 Eos # 0.0 K/mm3 (0.0-0.4) 05/22/16 01:24 Baso # 0.1 K/mm3 (0.0-0.1) 05/22/16 01:24 Seg Neutrophils % 55.3 % (40.0-70.0) 05/22/16 01:24 Seg Neutrophils # 3.6 K/mm3 (1.8-7.7) 05/22/16 01:24 PT 21.3 Sec. (12.2-14.9) H 05/22/16 02:04 INR 1.85 (0.87-1.13) H 05/22/16 02:04 D-Dimer 860.16 ng/mlDDU (0-234) H 05/22/16 02:04 Sodium 139 mmol/L (137-145) 05/23/16 05:13 Potassium 4.3 mmol/L (3.6-5.0) D 05/23/16 05:13 Chloride 105.8 mmol/L (98-107) 05/23/16 05:13 Carbon Dioxide 22 mmol/L (22-30) 05/23/16 05:13 Anion Gap 16 mmol/L 05/23/16 05:13 BUN 7 mg/dL (7-17) 05/23/16 05:13 Creatinine 0.6 mg/dL (0.7-1.2) L 05/23/16 05:13 Estimated GFR > 60 ml/min 05/23/16 05:13 BUN/Creatinine Ratio 11.66 % 05/23/16 05:13 Glucose 96 mg/dL (65-100) 05/23/16 05:13 Calcium 8.1 mg/dL (8.4-10.2) L 05/23/16 05:13 Magnesium 1.8 mg/dL (1.7-2.3) 05/22/16 02:04 Troponin T < 0.010 ng/mL (0.00-0.029) 05/22/16 01:24 TSH 0.010 mlU/mL (0.270-4.200) L 05/22/16 11:19 Free T4 2.02 ng/dL (0.76-1.46) H 05/22/16 11:19 Thyroxine (T4) 11.0 ug/dL (4.0-12.0) 05/22/16 11:19 Urine Color Straw (Yellow) 05/22/16 02:06 Urine Turbidity Clear (Clear) 05/22/16 02:06 Urine pH 5.0 (5.0-7.0) 05/22/16 02:06 Ur Specific [place] 1.003 (1.003-1.030) 05/22/16 02:06 Urine Protein <15 mg/dl mg/dL (Negative) 05/22/16 02:06 Urine Glucose (UA) Neg mg/dL (Negative) 05/22/16 02:06 Urine Ketones Neg mg/dL (Negative) 05/22/16 02:06 Urine Blood Neg (Negative) 05/22/16 02:06 Urine Nitrite Neg (Negative) 05/22/16 02:06 Urine Bilirubin Neg (Negative) 05/22/16 02:06 Urine Urobilinogen < 2.0 mg/dL (<2.0) 05/22/16 02:06 Ur Leukocyte Esterase Neg (Negative) 05/22/16 02:06 Urine WBC (Auto) 2.0 /HPF (0.0-6.0) 05/22/16 02:06 Urine RBC (Auto) 2.0 /HPF (0.0-6.0) 05/22/16 02:06 U Epithel Cells (Auto) 1.0 /HPF (0-13.0) 05/22/16 02:06 Urine Bacteria (Auto) 4+ /HPF (Negative) 05/22/16 02:06 Urine Mucus Few /HPF 05/22/16 02:06 Urine Opiates Screen Presumptive positive 05/22/16 02:06 Urine Methadone Screen Presumptive positive 05/22/16 02:06 Ur Barbiturates Screen Presumptive negative 05/22/16 02:06 Ur Phencyclidine Scrn Presumptive negative 05/22/16 02:06 Ur Amphetamines Screen Presumptive negative 05/22/16 02:06 U Benzodiazepines Scrn Presumptive negative 05/22/16 02:06 Urine Cocaine Screen Presumptive negative 05/22/16 02:06 U Marijuana (THC) Screen Presumptive positive 05/22/16 02:06 Drugs of Abuse Note Disclamer 05/22/16 02:06 - Imaging and Cardiology CT scan - chest: image reviewed (interstitial pneumonitis)
[2016-05-23] MEDS: ZITHROMAX PO SCH (14:06)
[2016-05-23] MEDS: DELTASONE PO SCH (14:06)
[2016-05-23] MEDS: PROVENTIL IH SCH ×2 (17:09→20:55)
[2016-05-23] MEDS: MORPHINE IV PRN (20:49)
[2016-05-23] MEDS: DESYREL PO SCH (21:30)
[2016-05-24] MEDS: SYNTHROID PO SCH (06:13)
[2016-05-24 07:47] VITALS: BP 145/95
[2016-05-24] MEDS: PROVENTIL IH SCH ×2 (08:12→13:27)
[2016-05-24] MEDS: TRICOR PO SCH (10:06)
[2016-05-24] MEDS: DELTASONE PO SCH (10:06)
[2016-05-24] MEDS: LOVENOX SUB-Q SCH (10:06)
[2016-05-24] MEDS: ZITHROMAX PO SCH (10:06)
[2016-05-24] MEDS: FLONASE NS SCH (10:07)
[2016-05-24] MEDS: MORPHINE IV PRN (10:07)
[2016-05-24] MEDS: ZOFRAN IV PRN (10:07)
--- NOTE | 2016-05-24 12:18 | Discharge Summary ---
Providers - Providers Date of Admission: 05/22/16 11:03 Attending physician: TAY GOMEZ MD Hospitalization Condition: Good Hospital course: 51F who was having N/V for few days who presented with syncope 1. Syncope This is most likely due to dehydration, received IV fluids, dizzyness resolved 2. Hypotension This is most likely due to dehydration from protracted vomiting, treated with IV fluids, discontinue blood pressure medications and her BP normalized 3. Hypokalemia Due to vomiting, repleted IV and normalized 4. Intractable nausea vomiting/acute gastroenteritis Supportive care with IV fluids, antiemetics, pain meds, she clinically improved 5. Hypertension she was normotensive off BP meds, therefore they were dc 6. Hyperlipidemia Continue fenofibrate 7. Hypothyroidism Continue Synthroid, TFTs were checked and were wnl 8. Tobacco abuse counseled 10 minutes about cessation, states that she is cutting down, nicotine patch offered 9. Subacute Bronchitis/ Interstitial Pneumonitis rx with nebs, abx and low dose steroid, she is advised to talk to her landlord about moldy conditions in her home Disposition: DISCHARGED TO HOME OR SELFCARE Time spent for discharge: 35 minutes Core Measure Documentation - Palliative Care Palliative Care/ Comfort Measures: Not Applicable - Core Measures Any of the following diagnoses?: none Exam - Constitutional Vitals: Temp Pulse Resp BP Pulse Ox 98.2 F 92 H 18 145/95 99 05/24/16 07:46 05/24/16 08:21 05/24/16 08:21 05/24/16 07:46 05/24/16 07:46 General appearance: Present: no acute distress, well-nourished - EENT Eyes: Present: PERRL ENT: hearing intact, clear oral mucosa - Neck Neck: Present: supple, normal ROM - Respiratory Respiratory effort: normal Respiratory: bilateral: CTA - Cardiovascular Heart Sounds: Present: S1 & S2. Absent: rub, click - Extremities Extremities: pulses symmetrical, No edema Peripheral Pulses: within normal limits - Abdominal General gastrointestinal: Present: soft, non-tender, non-distended, normal bowel sounds Female genitourinary: Present: normal - Integumentary Integumentary: Present: clear, warm, dry - Musculoskeletal Musculoskeletal: gait normal, strength equal bilaterally - Psychiatric Psychiatric: appropriate mood/affect, intact judgment & insight - Neurologic Neurologic: CNII-XII intact, moves all extremities Plan [facility]Other[facility] - 3-5 Days Prescriptions: Ipratropium/Albuterol Sulfate [Combivent Respimat] 1 spray IH QID #1 aer.w.adap predniSONE [Deltasone] 20 mg PO QDAY #5 tablet Nicotine [Habitrol] 7 mg TD QDAY PRN #30 patch PRN Reason: nicotine craving ALBUTEROL NEB's [Proventil 0.083% NEBS] 2.5 mg IH TID PRN #90 nebu PRN Reason: Wheezing guaiFENesin/CODEINE [Robitussin AC] 5 ml PO Q4H PRN #1 bottle PRN Reason: Cough Azithromycin [Zithromax TAB] 250 mg PO QDAY #4 tablet Ondansetron [Zofran Odt] 4 mg PO Q6H #30 tab.carolinedis
== END 2016-05-24 15:09 | disposition home or self-care (01) | DRG 641 ==
LOC: ED 00:37 → 4A 11:03
PROVIDERS: ADMIT Internal Medicine; ATTEND Internal Medicine
DX: E86.0 Dehydration (principal); K52.9 Noninfective gastroenteritis and colitis, unspecified; I95.9 Hypotension, unspecified; R55 Syncope and collapse; E87.6 Hypokalemia; I10 Essential (primary) hypertension; E03.9 Hypothyroidism, unspecified; E78.5 Hyperlipidemia, unspecified; F17.210 Nicotine dependence, cigarettes, uncomplicated; J20.9 Acute bronchitis, unspecified; J84.89 Other specified interstitial pulmonary diseases; Z79.899 Other long term (current) drug therapy; Z79.2 Long term (current) use of antibiotics; Z82.49 Family history of ischemic heart disease and other diseases of the circulatory system; Z71.6 Tobacco abuse counseling
CPT/HCPCS: 36415; 70450; 71020; 71275; 74177; 80048; 80307; 81001; 82271; 83735; 84436; 84439; 84443; 84484; 85025; 85379; 85610; 93005; 93010; 94010; 94640; 96361; 96374; 96375; 96376; J1650; J1885; J2270; J2405; J2765; J3480; J7030; J7512; Q9967

== ENCOUNTER 2016-10-03 10:14 | Outpatient (CLI) | payer MEDICAID ==
--- NOTE | 2016-10-03 12:44 | XRay Report ---
ABDOMEN RADIOGRAPH INDICATION: Diarrhea. COMPARISON: 05/22/2016 CT findings. FINDINGS: Frontal abdominal radiograph demonstrates nonobstructive bowel gas pattern. No focal suspicious calcifications or pneumatosis, though lung bases incompletely imaged. Slight bony degenerative changes and osteopenia possible. CONCLUSION: No acute abdominal radiographic abnormality, as described. Thank you for the opportunity to participate in this patient's care.
== END 2016-10-03 10:15 | disposition home or self-care (01) ==
LOC: FLUORO 10:14
PROVIDERS: ATTEND Internal Medicine Gastroenterology
DX: R19.7 Diarrhea, unspecified (principal)
CPT/HCPCS: 74000

== ENCOUNTER 2018-05-12 06:17 | Inpatient (IN) | payer MEDICAID ==
[2018-05-12] MEDS ORDERED: NACL 0.9% 1000 ML 1,000 ML IV ONE ×3 (06:52→14:26)
[2018-05-12 07:29] LABS: Basophils % (Auto) 0.6 % (0.0-1.8); Eosinophils % (Auto) 0.5 % (0.0-4.3); Hematocrit 39.5 % (30.3-42.9); Hemoglobin 13.8 gm/dl (10.1-14.3); Lymphocytes # (Auto) 2.1 K/mm3 (1.2-5.4); Mean Corpuscular HGB Conc 35 % (30-34); Mean Corpuscular Volume 102 fl (79-97); Monocytes # (Auto) 0.2 K/mm3 (0.0-0.8); Monocytes % (Auto) 5.9 % (0.0-7.3); Platelet Count 159 K/mm3 (140-440); Red Blood Count 3.89 M/mm3 (3.65-5.03); Red Cell Distribution Width 13.9 % (13.2-15.2)
--- NOTE | 2018-05-12 07:29 | XRay Report ---
FINAL REPORT EXAM: XR CHEST 1V AP HISTORY: Syncope TECHNIQUE: AP portable view(s) of the chest obtained. PRIORS: 05/22/2016 FINDINGS: No mediastinal shift. Cardiac silhouette is not enlarged. No pneumothorax, effusion, or focal pulmona ry opacity identified. No acute skeletal findings. IMPRESSION: No acute pulmonary finding identified.
[2018-05-12 07:31] LABS: INR 0.97 (0.87-1.13)
[2018-05-12 07:40] LABS: Creatine Kinase MB 11.5 ng/mL (0.0-4.0)
[2018-05-12 07:42] LABS: Alanine Aminotransferase 65 units/L (7-56); Albumin 2.7 g/dL (3.9-5); BUN/Creatinine Ratio 10; Bilirubin,Direct 0.6 mg/dL (0-0.2); Blood Urea Nitrogen 5 mg/dL (7-17); Calcium 8.1 mg/dL (8.4-10.2); Hemolysis Index 8
--- NOTE | 2018-05-12 08:02 | Emergency Department Report ---
ED General Adult HPI - General Chief complaint: Syncope Stated complaint: PASSING OUT Time Seen by Provider: 05/12/18 06:52 Source: patient Mode of arrival: Wheelchair Limitations: Physical Limitation - History of Present Illness Initial comments: This is a 53-year-old female who has had diarrhea and occasional vomiting for the past at least 5 days. This is her first presentation despite passing out at home yesterday. She states that she has had brown watery diarrhea but no signs of hematochezia. She denies roman fever or chills. She presented to the emergency department hypotensive. She had little peripheral access. I placed an 18-gauge catheter with a wide site adapter in her left external jugular vein. The patient complained of some diffuse aching and occasional abdominal cramping with diarrhea. She feels very weak. Patient states that she has been under the care of Dr. Aviles, gastroenterology. She states that she's had polyp removal. She denies any history of GI bleeding. Apparently she presented to the hospital under similar circumstances in 2017: Hospitalization Condition: Good Hospital course: 51F who was having N/V for few days who presented with syncope 1. Syncope This is most likely due to dehydration, received IV fluids, dizzyness resolved 2. Hypotension This is most likely due to dehydration from protracted vomiting, treated with IV fluids, discontinue blood pressure medications and her BP normalized 3. Hypokalemia Due to vomiting, repleted IV and normalized 4. Intractable nausea vomiting/acute gastroenteritis Supportive care with IV fluids, antiemetics, pain meds, she clinically improved 5. Hypertension she was normotensive off BP meds, therefore they were dc 6. Hyperlipidemia Continue fenofibrate 7. Hypothyroidism Continue Synthroid, TFTs were checked and were wnl 8. Tobacco abuse counseled 10 minutes about cessation, states that she is cutting down, nicotine patch offered 9. Subacute Bronchitis/ Interstitial Pneumonitis rx with nebs, abx and low dose steroid, she is advised to talk to her landlord about moldy conditions in her home Disposition: DISCHARGED TO HOME OR SELFCARE Time spent for discharge: 35 minutes -: days(s) Location: abdomen, upper extremity, lower extremity Consistency: intermittent (no chest pain) Improves with: none Worsens with: none Associated Symptoms: weakness (As per HPI) - Related Data Home Medications Medication Instructions Recorded Confirmed Last Taken Estradiol 2 mg PO DAILY 05/22/16 05/22/16 Unknown Fenofibrate [Tricor] 145 mg PO QDAY 05/22/16 05/22/16 Unknown Fluticasone [Flonase] 1 spray NS QDAY 05/22/16 05/22/16 Unknown Levothyroxine [Synthroid] 125 mcg PO QAM 05/22/16 05/22/16 Unknown Vortioxetine Hydrobromide 10 mg PO DAILY 05/22/16 05/22/16 Unknown [Trintellix] traZODone [Desyrel] 100 mg PO QHS 05/22/16 05/22/16 Unknown Previous Rx's Medication Instructions Recorded Last Taken Type ALBUTEROL NEB's [Proventil 0.083% 2.5 mg IH TID PRN #90 nebu 05/24/16 Unknown Rx NEBS] Azithromycin [Zithromax TAB] 250 mg PO QDAY #4 tablet 05/24/16 Unknown Rx Ipratropium/Albuterol Sulfate 1 spray IH QID #1 aer.w.adap 05/24/16 Unknown Rx [Combivent Respimat] Nicotine [Habitrol] 7 mg TD QDAY PRN #30 patch 05/24/16 Unknown Rx Ondansetron [Zofran Odt] 4 mg PO Q6H #30 tab.rapdis 05/24/16 Unknown Rx guaiFENesin/CODEINE [Robitussin AC] 5 ml PO Q4H PRN #1 bottle 05/24/16 Unknown Rx predniSONE [Deltasone] 20 mg PO QDAY #5 tablet 05/24/16 Unknown Rx Allergies Allergy/AdvReac Type Severity Reaction Status Date / Time No Known Allergies Allergy Unverified 05/22/16 01:07 ED Review of Systems ROS: Stated complaint: PASSING OUT Other details as noted in HPI Constitutional: weakness. denies: chills, fever Eyes: denies: eye pain, eye discharge, vision change ENT: denies: ear pain, throat pain Respiratory: denies: cough, shortness of breath, wheezing Cardiovascular: denies: chest pain, palpitations Endocrine: no symptoms reported Gastrointestinal: abdominal pain, nausea, vomiting, diarrhea Genitourinary: denies: urgency, dysuria, discharge Musculoskeletal: myalgia. denies: back pain, joint swelling, arthralgia Skin: denies: rash, lesions Neurological: denies: headache, weakness, paresthesias Psychiatric: denies: anxiety, depression Hematological/Lymphatic: denies: easy bleeding, easy bruising ED Past Medical Hx - Past Medical History Previous Medical History?: Yes Hx Hypertension: Yes Hx GERD: Yes Hx Asthma: Yes Additional medical history: asthma, HTN, Hypothyroid, High Cholesterol, and smoker - Surgical History Past Surgical History?: No - Social History Smoking Status: Never Smoker Substance Use Type: Alcohol - Medications Home Medications: Home Medications Medication Instructions Recorded Confirmed Last Taken Type Estradiol 2 mg PO DAILY 05/22/16 05/22/16 Unknown History Fenofibrate [Tricor] 145 mg PO QDAY 05/22/16 05/22/16 Unknown History Fluticasone [Flonase] 1 spray NS QDAY 05/22/16 05/22/16 Unknown History Levothyroxine [Synthroid] 125 mcg PO QAM 05/22/16 05/22/16 Unknown History Vortioxetine Hydrobromide 10 mg PO DAILY 05/22/16 05/22/16 Unknown History [Trintellix] traZODone [Desyrel] 100 mg PO QHS 05/22/16 05/22/16 Unknown History ALBUTEROL NEB's [Proventil 0.083% 2.5 mg IH TID PRN #90 nebu 05/24/16 Unknown Rx NEBS] Azithromycin [Zithromax TAB] 250 mg PO QDAY #4 tablet 05/24/16 Unknown Rx Ipratropium/Albuterol Sulfate 1 spray IH QID #1 aer.w.adap 05/24/16 Unknown Rx [Combivent Respimat] Nicotine [Habitrol] 7 mg TD QDAY PRN #30 patch 05/24/16 Unknown Rx Ondansetron [Zofran Odt] 4 mg PO Q6H #30 tab.rapdis 05/24/16 Unknown Rx guaiFENesin/CODEINE [Robitussin AC] 5 ml PO Q4H PRN #1 bottle 05/24/16 Unknown Rx predniSONE [Deltasone] 20 mg PO QDAY #5 tablet 05/24/16 Unknown Rx ED Physical Exam - General Limitations: Physical Limitation General appearance: alert, in no apparent distress - Head Head exam: Present: atraumatic, normocephalic - Eye Eye exam: Present: normal appearance, PERRL, EOMI. Absent: scleral icterus - ENT ENT exam: Present: mucous membranes dry - Neck Neck exam: Present: normal inspection. Absent: tenderness, meningismus - Respiratory Respiratory exam: Present: normal lung sounds bilaterally. Absent: respiratory distress - Cardiovascular Cardiovascular Exam: Present: regular rate, normal rhythm. Absent: systolic murmur, diastolic murmur, rubs, gallop - GI/Abdominal GI/Abdominal exam: Present: soft, normal bowel sounds. Absent: distended, tenderness, guarding, rebound, rigid - Extremities Exam Extremities exam: Present: normal inspection - Back Exam Back exam: Present: normal inspection - Neurological Exam Neurological exam: Present: alert, oriented X3, CN II-XII intact. Absent: motor sensory deficit - Psychiatric Psychiatric exam: Present: normal mood, flat affect - Skin Skin exam: Present: warm, dry, intact, normal color. Absent: rash ED Course Vital Signs 05/12/18 05/12/18 05/12/18 06:25 06:48 07:00 Temperature 97.8 F Pulse Rate 80 80 72 Respiratory 16 27 H 16 Rate Blood Pressure 76/52 O2 Sat by Pulse 88 99 Oximetry 05/12/18 05/12/18 07:15 07:30 Temperature Pulse Rate 71 67 Respiratory 22 18 Rate Blood Pressure 100/68 98/65 O2 Sat by Pulse 100 99 Oximetry - Reevaluation(s) Reevaluation #1: She responded to fluid bolus. She was given supplemental magnesium K riders and by mouth potassium. This is all well tolerated. She did not complain of substantial abdominal pain. She was also noted to be in rhabdomyolysis. She was given a fluid bolus. Repeat CMP is pending. A stool Hemoccult was obtained which was Hemoccult negative. Elevated troponin as noted. Discussed with Dr. Gallegos. who will get cardiology consultation. The patient is given aspirin. I will defer anticoagulation to Dr. Herrera. 05/12/18 09:45 05/12/18 09:49 Patient was noted to be in rhabdomyolysis. She did have an elevated troponin which might be attributable to rhabdo. She was not complaining of chest pain. She did have an elevated lactic acid. I begun Zosyn after blood cultures. I would for any other antibiotic coverage to the hospitalist staff. I'm unconvinced that she has a focus of infection at this point. She probably had prolonged hypotension. Patient has been seen and evaluated by the hospitalist. She is admitted to the IMCU for close observation for the stable polarization and appropriate consulta tion. - EJ/Peripheral Line Neck L Time Out Performed: No Indications: nurses unable to establis Skin Cleansed in Sterile Fashion: Yes Size: 18 Dressing Placed: Tegaderm Patient Tolerated Procedure: no complications ED Medical Decision Making - Lab Data Result diagrams: 05/12/18 07:00 05/12/18 07:00 Laboratory Results - last 24 hr 05/12/18 05/12/18 05/12/18 07:00 07:00 07:00 WBC 4.1 L RBC 3.89 Hgb 13.8 Hct 39.5 MCV 102 H MCH 36 H MCHC 35 H RDW 13.9 Plt Count 159 Lymph % (Auto) 50.0 H [place] % (Auto) 5.9 Eos % (Auto) 0.5 Baso % (Auto) 0.6 Lymph # 2.1 [place] # 0.2 Eos # 0.0 Baso # 0.0 Seg Neutrophils % 43.0 Seg Neutrophils # 1.8 PT 13.3 INR 0.97 D-Dimer 202.11 Sodium 134 L Chloride 69.4 L BUN 5 L Creatinine 0.5 L Estimated GFR > 60 BUN/Creatinine Ratio 10 Glucose 102 H Calcium 8.1 L Phosphorus Magnesium 1.70 Total Bilirubin 1.10 Direct Bilirubin 0.6 H Indirect Bilirubin 0.5 AST 112 H ALT 65 H Alkaline Phosphatase 69 Ammonia CK-MB (CK-2) 11.5 H NT-Pro-B Natriuret Pep 800.9 Total Protein 5.7 L Albumin 2.7 L Albumin/Globulin Ratio 0.9 Blood Type 05/12/18 05/12/18 05/12/18 07:00 07:00 07:00 WBC RBC Hgb Hct MCV MCH MCHC RDW Plt Count Lymph % (Auto) [place] % (Auto) Eos % (Auto) Baso % (Auto) Lymph # [place] # Eos # Baso # Seg Neutrophils % Seg Neutrophils # PT INR D-Dimer Sodium Chloride BUN Creatinine Estimated GFR BUN/Creatinine Ratio Glucose Calcium Phosphorus 2.90 Magnesium Total Bilirubin Direct Bilirubin Indirect Bilirubin AST ALT Alkaline Phosphatase Ammonia 41.0 CK-MB (CK-2) NT-Pro-B Natriuret Pep Total Protein Albumin Albumin/Globulin Ratio Blood Type O POSITIVE - EKG Data -: EKG Interpreted by Me EKG shows normal: sinus rhythm Rate: normal - EKG Data Interpretation: other (patient has a substantial increased QT interval as well as ST depression diffusely. She has no STEMI criteria. Changes consistent with ischemia and or hypo-kalemia) - Radiology Data Radiology results: report reviewed (no acute process) Critical Care Time: Yes Critical care time in (mins) excluding proc time.: 80 Critical care attestation.: If time is entered above; I have spent that time in minutes in the direct care of this critically ill patient, excluding procedure time. ED Disposition Clinical Impression: Hypokalemia, Elevated CO2 level, Lactic acidosis, Abnormal EKG, Elevated troponin Hypotension Qualifiers: Hypotension type: other hypotension type Qualified Code(s): I95.89 - Other hypotension Syncope Qualifiers: Syncope type: unspecified Qualified Code(s): R55 - Syncope and collapse Rhabdomyolysis Qualifiers: Rhabdomyolysis type: non-traumatic Qualified Code(s): M62.82 - Rhabdomyolysis Disposition: DC-09 OP ADMIT IP TO THIS HOSP Is pt being admited?: Yes Does the pt Need Aspirin: Yes Condition: Stable Instructions: Syncope (ED) Referrals: PRIMARY CARE, [Primary Care Provider] - 3-5 Days Time of Disposition: 09:51
[2018-05-12] MEDS ORDERED: K-DUR PO ONE ×3 (08:05→12:17)
[2018-05-12] MEDS ORDERED: ZOFRAN ODT PO ONE (08:06)
[2018-05-12] MEDS ORDERED: ZOSYN/NS 4.5GM/100ML 4.5 GM/100 ML VIAL IV ONE ×2 (08:07→17:30)
[2018-05-12 08:18] LABS: Chol/HDL Ratio 2.21 %; HDL Cholesterol 46 mg/dL (40-59); LDL Cholesterol,Direct 44 mg/dL (50-130)
[2018-05-12] MEDS ORDERED: MAGNESIUM SULFATE 2GM/50ML 2 GM/50 ML BAG IV ONE (08:30)
[2018-05-12] MEDS: KCL 10MEQ/100ML 10 MEQ/100 ML BAG IV SCH ×8 (08:30→18:46)
[2018-05-12] MEDS ORDERED: ASPIRIN PO ONE (09:37)
--- NOTE | 2018-05-12 09:54 | History and Physical Report ---
History of Present Illness Date of examination: 05/12/18 Date of admission: 05/12/18 Chief complaint: Passed out last night History of present illness: Patient is 53 yo with hypertension, hyperlipidemia, neuropathy, chronic diarrhea. She presents to ED because she passed out last night. She got up to go to bathroom, passed out. She was therefore brought to ED. She also mentions she has had chest pain across chest for 1 week, 7 out of 10, pressure like pain, no radiation. Did not move when she had pain so cannot tell if worse on exertion. No shortness of breath. Cough for 1 week. Also she has neuropathy and complains of pain in hands and legs for 1 week. In addition she has chronic diarrhea for more than 1 year and has been seeing Dr. Aviles GI. She passes between 2-8 watery stools a day for more than 1 yr. She was evaluated in ED, found to have elevated Troponins, severe hypokalemia, Lactic acidosis. Will admit to IMCU for further management. Past History Past Medical History: hypertension, hyperlipidemia, hypothyroidism, other (Peipheral neuropathy) Past Surgical History: , thyroidectomy Social history: , lives with family, smoking (1 pack cigarette daily), full code, other (Alcohol 3 times a week) Family history: hypertension Medications and Allergies Allergies Allergy/AdvReac Type Severity Reaction Status Date / Time No Known Allergies Allergy Unverified 05/22/16 01:07 Home Medications Medication Instructions Recorded Confirmed Last Taken Type ALPRAZolam [Xanax TAB] 0.5 mg PO BID 05/12/18 05/12/18 Unknown History DULoxetine [Cymbalta] 30 mg PO QDAY 05/12/18 05/12/18 Unknown History Quetiapine Fumarate [SEROquel] 50 mg PO QDAY 05/12/18 05/12/18 Unknown History Vortioxetine Hydrobromide 20 mg PO QDAY 05/12/18 05/12/18 Unknown History [Trintellix] Active Meds: Active Medications Potassium Chloride (Kcl 10meq/100ml) 10 meq in 100 mls @ 100 mls/hr IV Q1H MIESHA Stop: 05/12/18 12:59 Last Admin: 05/12/18 08:30 Dose: 100 mls/hr Documented by: Sodium Chloride (Nacl 0.9% 1000 Ml) 1,000 mls @ 999 mls/hr IV BOLUS ONE Stop: 05/12/18 10:41 Review of Systems All systems: negative Exam - Physical Exam Narrative exam: GEN: Not in acute distress, HEENT: Normocephalic, atraumatic, Neck: supple, No JVD Lungs: Clear to auscultation, no wheeze Heart:S1 and S2 regular, no murmurs, rubs or gallop, Abd:soft, non tender, non distended, normal bowel sounds Ext: No edema, no clubbing or cyanosis Neuro: Awake,alert, oriented x 3, No focal signs - Constitutional Vitals: Temp Pulse Resp BP Pulse Ox 97.8 F 67 18 98/65 99 05/12/18 06:25 05/12/18 07:30 05/12/18 07:30 05/12/18 07:30 05/12/18 07:30 Results - Labs CBC & Chem 7: 05/12/18 07:00 05/12/18 09:47 Labs: Abnormal lab results 05/12/18 05/12/18 05/12/18 Range/Units 07:00 07:00 07:00 WBC 4.1 L (4.5-11.0) K/mm3 MCV 102 H (79-97) fl MCH 36 H (28-32) pg MCHC 35 H (30-34) % Lymph % (Auto) 50.0 H (13.4-35.0) % Sodium 134 L (137-145) mmol/L Potassium 1.5 L* (3.6-5.0) mmol/L Chloride 69.4 L (98-107) mmol/L Carbon Dioxide 52 H* (22-30) mmol/L BUN 5 L (7-17) mg/dL Creatinine 0.5 L (0.7-1.2) mg/dL Glucose 102 H (65-100) mg/dL Lactic Acid 4.00 H* (0.7-2.0) mmol/L Calcium 8.1 L (8.4-10.2) mg/dL Direct Bilirubin 0.6 H (0-0.2) mg/dL AST 112 H (5-40) units/L ALT 65 H (7-56) units/L Total Creatine Kinase 2654 H (30-135) units/L CK-MB (CK-2) 11.5 H (0.0-4.0) ng/mL Troponin T 0.144 H* (0.00-0.029) ng/mL Total Protein 5.7 L (6.3-8.2) g/dL Albumin 2.7 L (3.9-5) g/dL LDL Cholesterol Direct 44 L (50-130) mg/dL 05/12/18 Range/Units 08:09 WBC (4.5-11.0) K/mm3 MCV (79-97) fl MCH (28-32) pg MCHC (30-34) % Lymph % (Auto) (13.4-35.0) % Sodium (137-145) mmol/L Potassium (3.6-5.0) mmol/L Chloride (98-107) mmol/L Carbon Dioxide (22-30) mmol/L BUN (7-17) mg/dL Creatinine (0.7-1.2) mg/dL Glucose (65-100) mg/dL Lactic Acid 3.50 H* (0.7-2.0) mmol/L Calcium (8.4-10.2) mg/dL Direct Bilirubin (0-0.2) mg/dL AST (5-40) units/L ALT (7-56) units/L Total Creatine Kinase (30-135) units/L CK-MB (CK-2) (0.0-4.0) ng/mL Troponin T (0.00-0.029) ng/mL Total Protein (6.3-8.2) g/dL Albumin (3.9-5) g/dL LDL Cholesterol Direct (50-130) mg/dL Assessment and Plan Syncope. Admit to IMCU iv fluid bolus NSTEMI with elevated Troponin, chest pain Aspirin Start Lovenox Consult Cardiology Serial Troponins Echo Severe hypokalemia from severe diarrhea. Potassium 1.5 Replace iv and recheck Chronic diarrhea. Dehydration. iv flluids Hypotension Bolus iv fluids Rhabdomyolysis repeat in am started on iv fluids Lactic acidosis, Obtain blood sugars. Started on empiric Zosyn and vancomycin. May de-escalate in few days if no evidence of infection Hyperlipidemia Peripheral neuropathy Full code status.
[2018-05-12] MEDS ORDERED: ZOFRAN IV PRN (10:09)
[2018-05-12] MEDS ORDERED: TYLENOL PO PRN (10:09)
[2018-05-12] MEDS ORDERED: SODIUM CHLORIDE FLUSH SYRINGE 10 ML IV PRN (10:09)
[2018-05-12] MEDS ORDERED: NITROSTAT SL PRN (10:11)
[2018-05-12 10:21] LABS: BUN/Creatinine Ratio 7; Blood Urea Nitrogen 4 mg/dL (7-17); Calcium 7.3 mg/dL (8.4-10.2); Hemolysis Index 33
[2018-05-12 10:31] LABS: Free T4 (Free Thyroxine) 1.31 ng/dL (0.76-1.46)
[2018-05-12] MEDS ORDERED: NACL 0.9% 1000 ML 1,000 ML ONE ×2 (10:59→17:37)
[2018-05-12] MEDS ORDERED: VANCOMYCIN/NS 1 GM/250 ML 1 GM/250 ML BAG IV ONE (11:00)
[2018-05-12] MEDS ORDERED: LOVENOX SUB-Q SCH (11:00)
[2018-05-12] MEDS: LOVENOX SUB-Q SCH ×2 (11:00→22:41)
[2018-05-12] MEDS ORDERED: VANCOMYCIN PHARMACY TO DOSE IV SCH (11:00)
[2018-05-12 11:25] LABS: Creatine Kinase MB 11.6 ng/mL (0.0-4.0)
--- NOTE | 2018-05-12 11:45 | Consultation ---
History of Present Illness Consult date: 05/12/18 Requesting physician: JONATHAN ALANIS Consult reason: elevated troponin History of present illness: This is a 53-year-old -[place] female with history of smoking spent having history of chronic diarrhea follows with Dr. Aviles as per the patient had a coloscopy has been treated with lomitel, who presents to the emergency room with syncope patient denies any symptoms prior to it is found on the floor unknown duration is found to have an ED extremity severe hypokalemia and elevated CPK and elevated troponin patient denies any chest pain denies any shortness of breath denies fever denies palpitations patient does have diarrhea and has been getting IV potassium and IV magnesium is being treated for sepsis Past History Past Medical History: hypertension, hyperlipidemia, hypothyroidism, other (Peipheral neuropathy) Past Surgical History: , thyroidectomy Social history: , lives with family, smoking (1 pack cigarette daily), full code, other (Alcohol 3 times a week) Family history: hypertension Medications and Allergies Allergies Allergy/AdvReac Type Severity Reaction Status Date / Time No Known Allergies Allergy Unverified 05/22/16 01:07 Home Medications Medication Instructions Recorded Confirmed Last Taken Type ALPRAZolam [Xanax TAB] 0.5 mg PO BID 05/12/18 05/12/18 Unknown History DULoxetine [Cymbalta] 30 mg PO QDAY 05/12/18 05/12/18 Unknown History Quetiapine Fumarate [SEROquel] 50 mg PO QDAY 05/12/18 05/12/18 Unknown History Vortioxetine Hydrobromide 20 mg PO QDAY 05/12/18 05/12/18 Unknown History [Trintellix] Active Meds: Active Medications Acetaminophen (Tylenol) 650 mg PO Q4H PRN PRN Reason: Pain MILD(1-3)/Fever >100.5/VALADEZ Albuterol (Proventil) 2.5 mg IH Q4HRT PRN PRN Reason: Shortness Of Breath Aspirin (Aspirin) 325 mg PO QDAY MIESHA Diphenoxylate HCl/Atropine (Lomotil) 1 tab PO Q6H PRN PRN Reason: Diarrhea Enoxaparin Sodium (Lovenox) 50 mg SUB-Q Q12HR MIESHA Potassium Chloride (Kcl 10meq/100ml) 10 meq in 100 mls @ 100 mls/hr IV Q1H MIESHA Stop: 05/12/18 12:59 Last Admin: 05/12/18 11:15 Dose: 100 mls/hr Documented by: Vancomycin HCl (Vancomycin/Ns 1 Gm/250 Ml) 1 gm in 250 mls @ 166.667 mls/hr IV ONCE ONE Stop: 05/12/18 12:29 Morphine Sulfate (Morphine) 2 mg IV Q4H PRN PRN Reason: Pain, Moderate (4-6) Nitroglycerin (Nitrostat) 0.4 mg SL .Q5MIN PRN PRN Reason: Chest Pain Ondansetron HCl (Zofran) 4 mg IV Q8H PRN PRN Reason: Nausea And Vomiting Sodium Chloride (Sodium Chloride Flush Syringe 10 Ml) 10 ml IV BID MIESHA Sodium Chloride (Sodium Chloride Flush Syringe 10 Ml) 10 ml IV PRN PRN PRN Reason: LINE FLUSH Review of Systems All systems: negative (except hpi) Physical Examination Vital Signs Temp Pulse Resp BP Pulse Ox 97.8 F 80 16 76/52 88 05/12/18 06:25 05/12/18 06:25 05/12/18 06:25 05/12/18 06:25 05/12/18 06:25 General appearance: no acute distress HEENT: Positive: PERRL, EOMI Neck: Positive: neck supple Cardiac: Positive: Reg Rate and Rhythm Lungs: Positive: clear to auscultation Neuro: Positive: Grossly Intact Abdomen: Positive: Soft Extremities: Present: normal. Absent: edema Results 05/12/18 07:00 05/12/18 09:47 Cardiac Enzymes 05/12/18 05/12/18 Range/Units 07:00 10:47 AST 112 H (5-40) units/L CK-MB (CK-2) 11.5 H 11.6 H (0.0-4.0) ng/mL Coagulation 05/12/18 Range/Units 07:00 PT 13.3 (12.2-14.9) Sec. INR 0.97 (0.87-1.13) Lipids 05/12/18 Range/Units 07:00 Triglycerides 118 (2-149) mg/dL Cholesterol 102 (50-199) mg/dL HDL Cholesterol 46 (40-59) mg/dL Cholesterol/HDL Ratio 2.21 % CBC 05/12/18 Range/Units 07:00 WBC 4.1 L (4.5-11.0) K/mm3 RBC 3.89 (3.65-5.03) M/mm3 Hgb 13.8 (10.1-14.3) gm/dl Hct 39.5 (30.3-42.9) % Plt Count 159 (140-440) K/mm3 Lymph # 2.1 (1.2-5.4) K/mm3 [place] # 0.2 (0.0-0.8) K/mm3 Eos # 0.0 (0.0-0.4) K/mm3 Baso # 0.0 (0.0-0.1) K/mm3 Comprehensive Metabolic Panel 05/12/18 05/12/18 Range/Units 07:00 09:47 Sodium 134 L 134 L (137-145) mmol/L Potassium 1.5 L* 1.6 L* (3.6-5.0) mmol/L Chloride 69.4 L 75.5 L (98-107) mmol/L Carbon Dioxide 52 H* 47 H* (22-30) mmol/L BUN 5 L 4 L (7-17) mg/dL Creatinine 0.5 L 0.6 L (0.7-1.2) mg/dL Glucose 102 H 130 H (65-100) mg/dL Calcium 8.1 L 7.3 L (8.4-10.2) mg/dL Direct Bilirubin 0.6 H (0-0.2) mg/dL Indirect Bilirubin 0.5 mg/dL AST 112 H (5-40) units/L ALT 65 H (7-56) units/L Alkaline Phosphatase 69 (35-129) units/L Total Protein 5.7 L (6.3-8.2) g/dL Albumin 2.7 L (3.9-5) g/dL EKG interpretations - Telemetry EKG Rhythm: Sinus Rhythm (normal sinus rhythm U waves mild diffuse ST depression) Assessment and Plan Syncope secondary to metabolic Sepsis Hypotension Severe hypokalemia and hypomagnesemia nstemi type 2 Rhabdomyolysis Diarrhea Recommend from cardiovascular point of view and echocardiogram for LV function IV fluids for elevated CPK potassium and magnesium supplementation primary treatment for diarrhea as per the primary care team hold off anticoagulation at this time
[2018-05-12] MEDS ORDERED: PROTONIX PO SCH (12:00)
[2018-05-12] MEDS ORDERED: KCL 10MEQ/100ML 10 MEQ/100 ML BAG IV ONE (12:16)
[2018-05-12] MEDS ORDERED: ASPIRIN ONE (12:45)
[2018-05-12] MEDS ORDERED: MORPHINE ONE (12:46)
[2018-05-12] MEDS ORDERED: LOMOTIL ONE (12:46)
--- NOTE | 2018-05-12 13:30 | Event Note ---
Date: 05/12/18 Blood pressure 76/52. Will start Levophed infusion, transfer to ICU
[2018-05-12] MEDS ORDERED: KCL 10MEQ/100ML 20 MEQ/200 ML BAG IV ONE ×2 (13:34→17:00)
--- NOTE | 2018-05-12 13:39 | Consultation ---
History of Present Illness Consult date: 05/12/18 History of present illness: Patient transfered ICU. I have not seen the patient. No consultation done by me at this time. Past History Past Medical History: hypertension, hyperlipidemia, hypothyroidism, other (Peipheral neuropathy) Past Surgical History: , thyroidectomy Social history: , lives with family, smoking (1 pack cigarette daily), full code, other (Alcohol 3 times a week) Family history: hypertension Medications and Allergies Allergies Allergy/AdvReac Type Severity Reaction Status Date / Time No Known Allergies Allergy Unverified 05/22/16 01:07 Home Medications Medication Instructions Recorded Confirmed Last Taken Type ALPRAZolam [Xanax TAB] 0.5 mg PO BID 05/12/18 05/12/18 Unknown History DULoxetine [Cymbalta] 30 mg PO QDAY 05/12/18 05/12/18 Unknown History Quetiapine Fumarate [SEROquel] 50 mg PO QDAY 05/12/18 05/12/18 Unknown History Vortioxetine Hydrobromide 20 mg PO QDAY 05/12/18 05/12/18 Unknown History [Trintellix] Active Meds: Active Medications Acetaminophen (Tylenol) 650 mg PO Q4H PRN PRN Reason: Pain MILD(1-3)/Fever >100.5/VALADEZ Albuterol (Proventil) 2.5 mg IH Q4HRT PRN PRN Reason: Shortness Of Breath Aspirin (Aspirin) 325 mg PO QDAY M[facility] Diphenoxylate HCl/Atropine (Lomotil) 1 tab PO Q6H PRN PRN Reason: Diarrhea Enoxaparin Sodium (Lovenox) 50 mg SUB-Q Q12HR M[facility] Vancomycin HCl 750 mg/ Sodium (Chloride) 265 mls @ 166.667 mls/hr IV Q12H M[facility] Norepinephrine (Levophed Drip 4 Mg/Ns 250 Ml) 4 mg in 250 mls @ 7.5 mls/hr IV TITR MIESHA; Protocol Potassium Chloride (Kcl 10meq/100ml) 10 meq in 100 mls @ 100 mls/hr IV Q1H MIESHA Stop: 05/12/18 17:59 Sodium Chloride (Nacl 0.9% 1000 Ml) 1,000 mls @ 999 mls/hr IV BOLUS ONE Stop: 05/12/18 15:26 Morphine Sulfate (Morphine) 2 mg IV Q4H PRN PRN Reason: Pain, Moderate (4-6) Nitroglycerin (Nitrostat) 0.4 mg SL .Q5MIN PRN PRN Reason: Chest Pain Ondansetron HCl (Zofran) 4 mg IV Q8H PRN PRN Reason: Nausea And Vomiting Pantoprazole Sodium (Protonix) 40 mg PO QDAY MIESHA Pantoprazole Sodium (Protonix) 40 mg IV QDAY MIESHA Sodium Chloride (Sodium Chloride Flush Syringe 10 Ml) 10 ml IV BID MIESHA Sodium Chloride (Sodium Chloride Flush Syringe 10 Ml) 10 ml IV PRN PRN PRN Reason: LINE FLUSH Review of Systems All systems: negative Physical Examination Vital signs: Vital Signs Temp Pulse Resp BP Pulse Ox 97.8 F 80 16 76/52 88 05/12/18 06:25 05/12/18 06:25 05/12/18 06:25 05/12/18 06:25 05/12/18 06:25 Results - Laboratory Findings CBC and BMP: 05/13/18 03:55 05/13/18 22:09 PT/INR, D-dimer PT 13.3 Sec. (12.2-14.9) 05/12/18 07:00 INR 0.97 (0.87-1.13) 05/12/18 07:00 D-Dimer 202.11 ng/mlDDU (0-234) 05/12/18 07:00 Abnormal lab findings: Abnormal Labs 05/12/18 05/12/18 05/12/18 07:00 07:00 07:00 WBC 4.1 L MCV 102 H MCH 36 H MCHC 35 H Lymph % (Auto) 50.0 H Sodium 134 L Potassium 1.5 L* Chloride 69.4 L Carbon Dioxide 52 H* BUN 5 L Creatinine 0.5 L Glucose 102 H Lactic Acid 4.00 H* Calcium 8.1 L Direct Bilirubin 0.6 H AST 112 H ALT 65 H Total Creatine Kinase 2654 H CK-MB (CK-2) 11.5 H Troponin T 0.144 H* Total Protein 5.7 L Albumin 2.7 L LDL Cholesterol Direct 44 L 05/12/18 05/12/18 05/12/18 08:09 09:20 09:47 WBC MCV MCH MCHC Lymph % (Auto) Sodium 134 L Potassium 1.6 L* Chloride 75.5 L Carbon Dioxide 47 H* BUN 4 L Creatinine 0.6 L Glucose 130 H Lactic Acid 3.50 H* 4.30 H* Calcium 7.3 L Direct Bilirubin AST ALT Total Creatine Kinase CK-MB (CK-2) Troponin T Total Protein Albumin LDL Cholesterol Direct 05/12/18 05/12/18 05/12/18 10:03 10:47 10:47 WBC MCV MCH MCHC Lymph % (Auto) Sodium Potassium Chloride Carbon Dioxide BUN Creatinine Glucose Lactic Acid 4.60 H* 3.40 H* Calcium Direct Bilirubin AST ALT Total Creatine Kinase 2530 H CK-MB (CK-2) 11.6 H Troponin T 0.114 H* D Total Protein Albumin LDL Cholesterol Direct - Diagnostic Findings Chest x-ray: report reviewed (Reported no acute cardiopulmonary process.), image reviewed Assessment and Plan - Patient Problems (1) Elevated troponin Current Visit: Yes Status: Acute (2) Hypotension Current Visit: Yes Status: Acute Qualifiers: Hypotension type: other hypotension type Qualified Code(s): I95.89 - Other hypotension (3) Lactic acidosis Current Visit: Yes Status: Acute (4) Syncope Current Visit: Yes Status: Acute Qualifiers: Syncope type: unspecified Qualified Code(s): R55 - Syncope and collapse
[2018-05-12] MEDS ORDERED: LEVOPHED DRIP 4 MG/NS 250 ML 4 MG/250 ML BAG IV ONE (13:50)
[2018-05-12] MEDS ORDERED: PROTONIX IV SCH (14:00)
[2018-05-12] MEDS ORDERED: XYLOCAINE 1% 20 mL ONE (14:02)
[2018-05-12] MEDS: LEVOPHED DRIP 4 MG/NS 250 ML 4 MG/250 ML BAG IV SCH (14:24)
--- NOTE | 2018-05-12 14:36 | Event Note ---
Date: 05/12/18 Requested to provide central access by Dr. Herrera Procedure Note; The right anterior triangle was anesthetized 1% lidocaine. It was cleansed with Hibiclens. A single puncture provided axis to the internal jugular vein which was successfully cannulated after dilatation utilizing the standard Seldinger technique. A 3 lm central line was easily advanced. The central line was secured using a line kiser. An antibiotic disc was placed. It was any potentially not sutured. The patient has a short neck and short stature. Chest x-ray will be necessary to determine proper length placement. The procedure was well tolerated. Two tubes of dark venous blood was given to the lab for additional study. Patient is currently hypotensive on levothyroid. I spoke with . He is aware. The ICU physician was
--- NOTE | 2018-05-12 15:21 | XRay Report ---
AP CHEST: HISTORY: Confirm central line placement The right IJ venous catheter terminates in the superior right atrium. There is no evidence for pneumothorax. Heart size and pulmonary venous structures are borderline. The lungs are grossly clear. IMPRESSION: Right IJ central line as described. No pneumothorax.
[2018-05-12 15:30] LABS: BUN/Creatinine Ratio 8; Blood Urea Nitrogen 4 mg/dL (7-17); Calcium 6.9 mg/dL (8.4-10.2); Hemolysis Index 14
[2018-05-12 16:37] LABS: Creatine Kinase MB 9.9 ng/mL (0.0-4.0)
[2018-05-12] MEDS ORDERED: XYLOCAINE 1% 20 mL INFILTRATI ONE (17:04)
[2018-05-12] MEDS ORDERED: PROTONIX IV ONE (17:37)
[2018-05-12] MEDS: ZOSYN/NS 4.5GM/100ML 4.5 GM/100 ML VIAL IV SCH ×2 (17:57→22:43)
[2018-05-12 21:31] LABS: BUN/Creatinine Ratio 7; Blood Urea Nitrogen 4 mg/dL (7-17); Calcium 6.9 mg/dL (8.4-10.2); Hemolysis Index 7
[2018-05-12] MEDS: SODIUM CHLORIDE FLUSH SYRINGE 10 ML IV SCH (22:53)
[2018-05-12] MEDS ORDERED: VANCOMYCIN 750 MG in NACL 0.9% 250ML 250 ML IV SCH (23:00)
[2018-05-12 23:20] LABS: Creatine Kinase MB 7.1 ng/mL (0.0-4.0)
[2018-05-13] MEDS: D5NS 1,000 ML IV SCH ×2 (00:53→09:40)
[2018-05-13 04:25] LABS: Basophils % (Auto) 0.4 % (0.0-1.8); Eosinophils % (Auto) 0.5 % (0.0-4.3); Hematocrit 35.5 % (30.3-42.9); Hemoglobin 11.8 gm/dl (10.1-14.3); Lymphocytes % (Auto) 24.2 % (13.4-35.0); Mean Corpuscular HGB Conc 33 % (30-34); Mean Corpuscular Volume 105 fl (79-97); Monocytes # (Auto) 0.2 K/mm3 (0.0-0.8); Monocytes % (Auto) 5.3 % (0.0-7.3); Platelet Count 157 K/mm3 (140-440); Red Blood Count 3.37 M/mm3 (3.65-5.03); Red Cell Distribution Width 14.3 % (13.2-15.2)
[2018-05-13] MEDS ORDERED: MAGNESIUM SULFATE 2GM/50ML 2 GM/50 ML BAG IV ONE (04:32)
[2018-05-13] MEDS: LEVOPHED DRIP 4 MG/NS 250 ML 4 MG/250 ML BAG IV SCH (05:10)
[2018-05-13 05:14] LABS: BUN/Creatinine Ratio 6; Blood Urea Nitrogen 3 mg/dL (7-17); Calcium 6.7 mg/dL (8.4-10.2); Hemolysis Index 14
[2018-05-13] MEDS: KCL 10MEQ/100ML 10 MEQ/100 ML BAG IV SCH ×4 (06:23→13:37)
[2018-05-13] MEDS: ZOSYN/NS 4.5GM/100ML 4.5 GM/100 ML VIAL IV SCH (06:29)
[2018-05-13] MEDS: MORPHINE IV PRN ×2 (08:54→20:00)
[2018-05-13] MEDS ORDERED: ATIVAN IV PRN ×3 (09:26)
--- NOTE | 2018-05-13 09:30 | Consultation ---
History of Present Illness Consult date: 05/13/18 Past History Past Medical History: hypertension, hyperlipidemia, hypothyroidism, other (Peipheral neuropathy) Past Surgical History: , thyroidectomy Social history: , lives with family, smoking (1 pack cigarette daily), full code, other (Alcohol 3 times a week) Family history: hypertension Medications and Allergies Allergies Allergy/AdvReac Type Severity Reaction Status Date / Time No Known Allergies Allergy Unverified 05/22/16 01:07 Home Medications Medication Instructions Recorded Confirmed Last Taken Type ALPRAZolam [Xanax TAB] 0.5 mg PO BID 05/12/18 05/12/18 Unknown History DULoxetine [Cymbalta] 30 mg PO QDAY 05/12/18 05/12/18 Unknown History Quetiapine Fumarate [SEROquel] 50 mg PO QDAY 05/12/18 05/12/18 Unknown History Vortioxetine Hydrobromide 20 mg PO QDAY 05/12/18 05/12/18 Unknown History [Trintellix] Active Meds: Active Medications Acetaminophen (Tylenol) 650 mg PO Q4H PRN PRN Reason: Pain MILD(1-3)/Fever >100.5/[place] Albuterol (Proventil) 2.5 mg IH Q4HRT PRN PRN Reason: Shortness Of Breath Aspirin (Aspirin) 325 mg PO QDAY MIESHA Diphenoxylate HCl/Atropine (Lomotil) 1 tab PO Q6H PRN PRN Reason: Diarrhea Enoxaparin Sodium (Lovenox) 50 mg SUB-Q Q12HR MIESHA Last Admin: 05/12/18 22:41 Dose: 50 mg Documented by: Gabapentin (Neurontin) 300 mg PO QHS MIESHA Norepinephrine (Levophed Drip 4 Mg/Ns 250 Ml) 4 mg in 250 mls @ 7.5 mls/hr IV TITR MIESHA; Protocol Last Titration: 05/13/18 09:00 Dose: 4 mcg/min, 15 mls/hr Documented by: Dextrose/Sodium Chloride (D5ns) 1,000 mls @ 125 mls/hr IV DIRECT MIESHA Last Admin: 05/13/18 00:53 Dose: 125 mls/hr Documented by: Lorazepam (Ativan) 2 mg IV Q1HR PRN PRN Reason: CIWA-Ar 8-15 Lorazepam (Ativan) 4 mg IV Q1HR PRN PRN Reason: CIWA-Ar 16-25 Lorazepam (Ativan) 4 mg IV Q15MIN PRN PRN Reason: CIWA-Ar >25 Morphine Sulfate (Morphine) 2 mg IV Q4H PRN PRN Reason: Pain, Moderate (4-6) Last Admin: 05/13/18 08:54 Dose: 2 mg Documented by: Nitroglycerin (Nitrostat) 0.4 mg SL .Q5MIN PRN PRN Reason: Chest Pain Ondansetron HCl (Zofran) 4 mg IV Q8H PRN PRN Reason: Nausea And Vomiting Pantoprazole Sodium (Protonix) 40 mg PO DAILY [facility] Potassium Chloride (K-Dur) 40 meq PO Q4H MIESHA Stop: 05/13/18 14:01 Potassium Chloride (K-Dur) 20 meq PO Q8HR [facility] Sodium Chloride (Sodium Chloride Flush Syringe 10 Ml) 10 ml IV BID [facility] Last Admin: 05/12/18 22:53 Dose: 10 ml Documented by: Sodium Chloride (Sodium Chloride Flush Syringe 10 Ml) 10 ml IV PRN PRN PRN Reason: LINE FLUSH Physical Examination Vital signs: Vital Signs Temp Pulse Resp BP Pulse Ox 97.8 F 80 16 76/52 88 05/12/18 06:25 05/12/18 06:25 05/12/18 06:25 05/12/18 06:25 05/12/18 06:25 Results - Laboratory Findings CBC and BMP: 05/13/18 03:55 05/13/18 03:55 PT/INR, D-dimer PT 13.3 Sec. (12.2-14.9) 05/12/18 07:00 INR 0.97 (0.87-1.13) 05/12/18 07:00 D-Dimer 202.11 ng/mlDDU (0-234) 05/12/18 07:00 Abnormal lab findings: Abnormal Labs 05/12/18 05/12/18 05/12/18 06:39 07:00 07:00 WBC 4.1 L RBC MCV 102 H MCH 36 H MCHC 35 H Lymph % (Auto) 50.0 H Lymph # Sodium 134 L Potassium 1.5 L* Chloride 69.4 L Carbon Dioxide 52 H* BUN 5 L Creatinine 0.5 L Glucose 102 H POC Glucose 110 H Lactic Acid Calcium 8.1 L Magnesium Direct Bilirubin 0.6 H AST 112 H ALT 65 H Total Creatine Kinase 2654 H CK-MB (CK-2) 11.5 H Troponin T 0.144 H* Total Protein 5.7 L Albumin 2.7 L LDL Cholesterol Direct 44 L 05/12/18 05/12/18 05/12/18 07:00 08:09 09:20 WBC RBC MCV MCH MCHC Lymph % (Auto) Lymph # Sodium Potassium Chloride Carbon Dioxide BUN Creatinine Glucose POC Glucose Lactic Acid 4.00 H* 3.50 H* 4.30 H* Calcium Magnesium Direct Bilirubin AST ALT Total Creatine Kinase CK-MB (CK-2) Troponin T Total Protein Albumin LDL Cholesterol Direct 05/12/18 05/12/18 05/12/18 09:47 10:03 10:47 WBC RBC MCV MCH MCHC Lymph % (Auto) Lymph # Sodium 134 L Potassium 1.6 L* Chloride 75.5 L Carbon Dioxide 47 H* BUN 4 L Creatinine 0.6 L Glucose 130 H POC Glucose Lactic Acid 4.60 H* Calcium 7.3 L Magnesium Direct Bilirubin AST ALT Total Creatine Kinase 2530 H CK-MB (CK-2) 11.6 H Troponin T 0.114 H* D Total Protein Albumin LDL Cholesterol Direct 05/12/18 05/12/18 05/12/18 10:47 14:34 16:07 WBC RBC MCV MCH MCHC Lymph % (Auto) Lymph # Sodium Potassium 2.0 L* D Chloride 83.4 L Carbon Dioxide 49 H* BUN 4 L Creatinine 0.5 L Glucose 134 H POC Glucose Lactic Acid 3.40 H* Calcium 6.9 L Magnesium Direct Bilirubin AST ALT Total Creatine Kinase 2389 H CK-MB (CK-2) 9.9 H Troponin T 0.094 H Total Protein Albumin LDL Cholesterol Direct 05/12/18 05/12/18 05/12/18 21:10 22:09 22:44 WBC RBC MCV MCH MCHC Lymph % (Auto) Lymph # Sodium 146 H D Potassium 2.1 L* Chloride 89.8 L Carbon Dioxide 47 H* BUN 4 L Creatinine 0.6 L Glucose 145 H POC Glucose 144 H Lactic Acid Calcium 6.9 L Magnesium Direct Bilirubin AST ALT Total Creatine Kinase 1967 H CK-MB (CK-2) 7.1 H Troponin T 0.099 H Total Protein Albumin LDL Cholesterol Direct 05/13/18 05/13/18 05/13/18 03:55 03:55 06:09 WBC 4.1 L RBC 3.37 L MCV 105 H MCH 35 H MCHC Lymph % (Auto) Lymph # 1.0 L Sodium 148 H Potassium 2.0 L* Chloride 95.0 L Carbon Dioxide 48 H* BUN 3 L Creatinine 0.5 L Glucose 151 H POC Glucose 131 H Lactic Acid Calcium 6.7 L Magnesium 2.40 H Direct Bilirubin AST ALT Total Creatine Kinase CK-MB (CK-2) Troponin T Total Protein Albumin LDL Cholesterol Direct
[2018-05-13] MEDS: K-DUR PO SCH ×2 (10:02→18:04)
[2018-05-13] MEDS: SODIUM CHLORIDE FLUSH SYRINGE 10 ML IV SCH (10:02)
[2018-05-13] MEDS: ASPIRIN PO SCH (10:03)
[2018-05-13] MEDS: LOVENOX SUB-Q SCH ×2 (10:03→23:00)
[2018-05-13] MEDS: PROTONIX PO SCH (10:05)
--- NOTE | 2018-05-13 10:54 | Progress Note ---
Assessment and Plan Syncope secondary to metabolic Sepsis Hypotension Severe hypokalemia and hypomagnesemia nstemi type 2 Rhabdomyolysis Diarrhea rec: cont correct underlying low k and cont iv fluids and wean off pressors Subjective Date of service: 05/13/18 Principal diagnosis: nstemi Interval history: pt lying in bed spasm in hand better and diarrhea is better Objective Vital Signs Temp Pulse Pulse Resp BP BP Pulse Ox 05/13/18 09:31 68 14 114/70 98 05/13/18 09:21 72 25 H 123/75 97 05/13/18 09:11 70 19 97/49 97 05/13/18 09:01 75 14 97/49 99 05/13/18 08:51 72 15 136/86 96 05/13/18 08:41 72 16 122/93 95 05/13/18 08:30 73 17 122/93 97 05/13/18 08:21 66 16 136/86 96 05/13/18 08:11 66 9 L 122/82 98 05/13/18 08:00 98.6 F 55 L 55 L 10 L 122/82 94 05/13/18 07:51 56 L 19 119/85 94 05/13/18 07:41 56 L 19 121/83 94 05/13/18 07:31 58 L 20 121/83 93 05/13/18 07:21 57 L 20 120/82 93 05/13/18 07:11 58 L 21 120/86 92 05/13/18 07:01 62 8 L 120/86 93 05/13/18 06:51 66 14 110/77 99 05/13/18 06:41 60 11 L 100/68 91 05/13/18 06:31 56 L 15 100/68 91 05/13/18 06:21 55 L 17 89/51 93 05/13/18 06:11 58 L 11 L 91/64 94 05/13/18 06:00 55 L 16 91/64 97 05/13/18 05:51 55 L 21 109/76 99 05/13/18 05:41 57 L 22 106/76 100 05/13/18 05:30 60 15 114/81 100 05/13/18 05:27 17 05/13/18 05:21 55 L 10 L 106/76 98 05/13/18 05:11 55 L 15 87/57 100 05/13/18 05:01 68 9 L 84/58 100 05/13/18 04:51 67 12 87/57 99 05/13/18 04:41 67 15 111/76 100 05/13/18 04:30 56 L 15 111/76 98 05/13/18 04:21 57 L 15 123/78 95 05/13/18 04:11 59 L 18 121/81 96 05/13/18 04:00 58 L 12 135/86 94 05/13/18 03:51 58 L 18 121/81 97 05/13/18 03:41 54 L 18 115/74 94 05/13/18 03:30 54 L 18 115/74 97 05/13/18 03:27 17 05/13/18 03:21 51 L 19 109/80 97 05/13/18 03:11 54 L 20 150/82 95 05/13/18 03:00 49 L 14 114/72 97 05/13/18 02:51 54 L 18 114/72 96 05/13/18 02:41 54 L 21 110/76 96 05/13/18 02:30 52 L 19 110/76 98 05/13/18 02:21 56 L 19 124/76 95 05/13/18 02:11 60 24 113/74 94 05/13/18 02:00 66 17 133/89 98 05/13/18 01:51 55 L 19 121/82 99 05/13/18 01:41 57 L 16 134/87 99 05/13/18 01:30 64 16 113/74 95 05/13/18 01:27 17 05/13/18 01:20 67 17 134/87 95 05/13/18 01:11 54 L 17 108/75 93 05/13/18 01:01 54 L 13 108/75 95 05/13/18 00:51 52 L 13 104/73 97 05/13/18 00:41 51 L 17 110/67 94 05/13/18 00:30 53 L 16 110/67 96 05/13/18 00:21 53 L 15 113/90 98 05/13/18 00:11 51 L 17 114/81 98 05/13/18 00:00 98.0 F 50 L 15 114/81 100 05/12/18 23:51 53 L 15 104/69 98 05/12/18 23:41 58 L 16 105/74 98 05/12/18 23:30 60 19 105/74 98 05/12/18 23:27 17 05/12/18 23:21 54 L 14 100/65 97 05/12/18 23:13 97 05/12/18 23:11 53 L 13 117/84 97 05/12/18 23:00 52 L 14 128/77 97 05/12/18 22:51 58 L 17 117/84 97 05/12/18 22:41 55 L 11 L 111/72 97 05/12/18 22:31 53 L 17 111/72 96 05/12/18 22:21 57 L 17 101/71 97 05/12/18 22:11 58 L 15 93/61 94 05/12/18 22:01 55 L 15 93/61 93 05/12/18 21:51 57 L 20 110/72 97 05/12/18 21:45 57 L 17 110/72 91 05/12/18 21:41 54 L 13 128/77 94 05/12/18 21:31 54 L 13 128/77 96 05/12/18 21:27 17 05/12/18 21:21 56 L 18 126/85 93 05/12/18 21:11 58 L 17 126/85 92 05/12/18 21:00 58 L 17 126/85 92 05/12/18 20:51 56 L 14 92 05/12/18 20:41 58 L 22 93 05/12/18 20:11 56 L 16 105/70 97 05/12/18 20:00 57 L 15 105/70 98 05/12/18 19:51 58 L 16 130/91 98 05/12/18 19:41 57 L 13 130/91 98 05/12/18 19:31 53 L 17 130/91 99 05/12/18 19:28 97.7 F 20 130/91 98 05/12/18 19:21 53 L 14 110/77 99 05/12/18 19:00 53 L 14 107/74 99 05/12/18 18:30 55 L 16 87/62 98 05/12/18 18:00 56 L 14 76/51 98 05/12/18 17:30 59 L 17 100/68 99 05/12/18 17:00 58 L 14 88/64 96 05/12/18 16:30 58 L 12 103/76 97 05/12/18 16:00 56 L 17 91/64 96 05/12/18 15:30 60 17 94/71 98 05/12/18 15:00 63 15 94/67 98 05/12/18 14:30 68 19 76/51 94 05/12/18 14:00 65 16 67/42 93 05/12/18 13:30 66 17 68/44 88 05/12/18 13:16 67 21 76/52 89 05/12/18 13:00 70 17 76/52 90 05/12/18 12:45 70 19 82/50 91 05/12/18 12:30 68 22 75/48 92 05/12/18 12:15 64 12 69/42 95 05/12/18 12:00 64 11 L 73/48 95 05/12/18 11:45 63 17 84/44 94 05/12/18 11:30 67 12 73/48 95 05/12/18 11:15 69 21 78/50 94 05/12/18 11:00 70 20 72/46 96 - Physical Examination General: No Apparent Distress HEENT: Positive: PERRL, EOMI Neck: Positive: neck supple Cardiac: Positive: Reg Rate and Rhythm Lungs: Positive: clear to auscultation Neuro: Positive: Grossly Intact Abdomen: Positive: Soft Extremities: Present: normal. Absent: edema - Labs and Meds Cardiac Enzymes 05/12/18 05/12/18 05/12/18 Range/Units 10:47 16:07 22:44 CK-MB (CK-2) 11.6 H 9.9 H 7.1 H (0.0-4.0) ng/mL CBC 05/13/18 Range/Units 03:55 WBC 4.1 L (4.5-11.0) K/mm3 RBC 3.37 L (3.65-5.03) M/mm3 Hgb 11.8 (10.1-14.3) gm/dl Hct 35.5 (30.3-42.9) % Plt Count 157 (140-440) K/mm3 Lymph # 1.0 L (1.2-5.4) K/mm3 [place] # 0.2 (0.0-0.8) K/mm3 Eos # 0.0 (0.0-0.4) K/mm3 Baso # 0.0 (0.0-0.1) K/mm3 Comprehensive Metabolic Panel 05/12/18 05/12/18 05/13/18 Range/Units 14:34 21:10 03:55 Sodium 139 146 H D 148 H (137-145) mmol/L Potassium 2.0 L* D 2.1 L* 2.0 L* (3.6-5.0) mmol/L Chloride 83.4 L 89.8 L 95.0 L (98-107) mmol/L Carbon Dioxide 49 H* 47 H* 48 H* (22-30) mmol/L BUN 4 L 4 L 3 L (7-17) mg/dL Creatinine 0.5 L 0.6 L 0.5 L (0.7-1.2) mg/dL Glucose 134 H 145 H 151 H (65-100) mg/dL Calcium 6.9 L 6.9 L 6.7 L (8.4-10.2) mg/dL - Imaging and Cardiology Echo: report reviewed (normal lv function ef 55-60% ) - Telemetry EKG Rhythm: Sinus Rhythm
--- NOTE | 2018-05-13 11:56 | Gastroenterology Consultation ---
Addendum entered and electronically signed by YESENIA JONES MD 05/13/18 19:18: I have personally interviewed and examined the patient. Admitted with severe metabolic derangements as well as syncope, at least partially due to chronic and active EtOH use. Will check CT scan to assess for signs of end-organ damage to pancreas, and check a fecal elastase as well. Patient should discontinue smoking. OK to be on regular diet at present. Original Note: History of Present Illness - Reason for Consult Consult date: 05/13/18 chronic diarrhea Requesting physician: JONATHAN ALANIS - History of Present Illness Patient is a 53 y/o female with PMH of HTN, HLD, neuropathy, hypothyroidism, tobacco/alcohol dependency, and chronic diarrhea who presented to ED with c/o syncope and diarrhea. Upon evaluation in ED she was found to have elevated troponins, hypokalemia, and lactic acidosis. She was admitted for syncope secondary to metabolic sepsis, hypotension, severe hypokalemia, NSTEMI type 2, rhabdomyolysis, and diarrhea to which GI has been consulted. Cardiology and pulmonary are following. Currently in ICU on pressor support. Resting in bed this am w/o acute distress. She reports continued chronic diarrhea with liquid non-bloody stool for over 1 year with BMs x 2-8/day. No exacerbating or alleviating factors. Has tried Lomotil w/o improvement. Admits to associated generalized intermittent abd cramping with BMs but denies fever, CP, SOB, wt loss, abd pain, N/V, signs of bleeding, or constipation. Tolerating diet. No re cent travel, abx therapy, or ill contacts. Patient is previously known to our service from previous hospitalizations in 2013 with UGI symptoms (abd CT showed pancreatitis, however pancreatic enzymes normal) with undergoing an EGD with normal results and again in 08/2016 for chronic diarrhea with undergoing a repeat EGD and a colonoscopy at that time that revealed mild esophagitis, antral erosions, duodenal polyp, and normal colon (bx results negative). Continues to heavily drink alcohol every other day at home (unable to give me exact amount). Past History Past Medical History: hypertension, hyperlipidemia, hypothyroidism, other (Peipheral neuropathy, chronic diarrhea) Past Surgical History: , thyroidectomy Social history: , lives with family, smoking (1 pack cigarette daily), full code, other (Alcohol ) Family history: hypertension Medications and Allergies Allergies Allergy/AdvReac Type Severity Reaction Status Date / Time No Known Allergies Allergy Unverified 05/22/16 01:07 Home Medications Medication Instructions Recorded Confirmed Last Taken Type ALPRAZolam [Xanax TAB] 0.5 mg PO BID 05/12/18 05/12/18 Unknown History DULoxetine [Cymbalta] 30 mg PO QDAY 05/12/18 05/12/18 Unknown History Quetiapine Fumarate [SEROquel] 50 mg PO QDAY 05/12/18 05/12/18 Unknown History Vortioxetine Hydrobromide 20 mg PO QDAY 05/12/18 05/12/18 Unknown History [Trintellix] Active Meds: Active Medications Acetaminophen (Tylenol) 650 mg PO Q4H PRN PRN Reason: Pain MILD(1-3)/Fever >100.5/VALADEZ Albuterol (Proventil) 2.5 mg IH Q4HRT PRN PRN Reason: Shortness Of Breath Aspirin (Aspirin) 325 mg PO QDAY MIESHA Last Admin: 05/13/18 10:03 Dose: 325 mg Documented by: Diphenoxylate HCl/Atropine (Lomotil) 1 tab PO Q6H PRN PRN Reason: Diarrhea Enoxaparin Sodium (Lovenox) 50 mg SUB-Q Q12HR MIESHA Last Admin: 05/13/18 10:03 Dose: 50 mg Documented by: Gabapentin (Neurontin) 300 mg PO QHS MIESHA Norepinephrine (Levophed Drip 4 Mg/Ns 250 Ml) 4 mg in 250 mls @ 7.5 mls/hr IV TITR MIESHA; Protocol Last Titration: 05/13/18 09:00 Dose: 4 mcg/min, 15 mls/hr Documented by: Dextrose/Sodium Chloride (D5ns) 1,000 mls @ 125 mls/hr IV DIRECT MIESHA Last Admin: 05/13/18 09:40 Dose: 125 mls/hr Documented by: Lorazepam (Ativan) 2 mg IV Q1HR PRN PRN Reason: CIWA-Ar 8-15 Lorazepam (Ativan) 4 mg IV Q1HR PRN PRN Reason: CIWA-Ar 16-25 Lorazepam (Ativan) 4 mg IV Q15MIN PRN PRN Reason: CIWA-Ar >25 Morphine Sulfate (Morphine) 2 mg IV Q4H PRN PRN Reason: Pain, Moderate (4-6) Last Admin: 05/13/18 08:54 Dose: 2 mg Documented by: Nitroglycerin (Nitrostat) 0.4 mg SL .Q5MIN PRN PRN Reason: Chest Pain Ondansetron HCl (Zofran) 4 mg IV Q8H PRN PRN Reason: Nausea And Vomiting Pantoprazole Sodium (Protonix) 40 mg PO DAILY [facility] Last Admin: 05/13/18 10:05 Dose: 40 mg Documented by: Potassium Chloride (K-Dur) 40 meq PO Q4H [facility] Stop: 05/13/18 14:01 Last Admin: 05/13/18 10:02 Dose: 40 meq Documented by: Potassium Chloride (K-Dur) 20 meq PO Q8HR [facility] Sodium Chloride (Sodium Chloride Flush Syringe 10 Ml) 10 ml IV BID [facility] Last Admin: 05/13/18 10:02 Dose: 10 ml Documented by: Sodium Chloride (Sodium Chloride Flush Syringe 10 Ml) 10 ml IV PRN PRN PRN Reason: LINE FLUSH medications reviewed/updated as required Review of Systems - Review of Systems All systems: negative Gastrointestinal: abdominal pain (intermittent cramping), diarrhea (chronic) Exam - Constitutional Vital Signs: Temp Pulse Resp BP Pulse Ox 98.6 F 68 14 114/70 98 05/13/18 08:00 05/13/18 09:31 05/13/18 09:31 05/13/18 09:31 05/13/18 09:31 - Respiratory Respiratory: bilateral: CTA - Cardiovascular Rhythm: regular Heart Sounds: Present: S1 & S2 - Gastrointestinal General gastrointestinal: Present: soft, non-tender, non-distended, normal bowel sounds - Neurologic Neurological: alert and oriented x3 - Labs CBC & Chem 7: 05/13/18 03:55 05/13/18 03:55 Lab Results: Laboratory Results - last 24 hr 05/12/18 05/12/18 05/12/18 06:39 10:47 14:34 WBC RBC Hgb Hct MCV MCH MCHC RDW Plt Count Lymph % (Auto) [place] % (Auto) Eos % (Auto) Baso % (Auto) Lymph # [place] # Eos # Baso # Seg Neutrophils % Seg Neutrophils # Sodium 139 Potassium 2.0 L* D Chloride 83.4 L Carbon Dioxide 49 H* Anion Gap 9 BUN 4 L Creatinine 0.5 L Estimated GFR > 60 BUN/Creatinine Ratio 8 Glucose 134 H POC Glucose 110 H Calcium 6.9 L Magnesium Total Creatine Kinase 2530 H CK-MB (CK-2) CK-MB (CK-2) Rel Index 0.4 Troponin T 0.114 H* D 05/12/18 05/12/18 05/12/18 16:07 21:10 22:09 WBC RBC Hgb Hct MCV MCH MCHC RDW Plt Count Lymph % (Auto) [place] % (Auto) Eos % (Auto) Baso % (Auto) Lymph # [place] # Eos # Baso # Seg Neutrophils % Seg Neutrophils # Sodium 146 H D Potassium 2.1 L* Chloride 89.8 L Carbon Dioxide 47 H* Anion Gap 11 BUN 4 L Creatinine 0.6 L Estimated GFR > 60 BUN/Creatinine Ratio 7 Glucose 145 H POC Glucose 144 H Calcium 6.9 L Magnesium Total Creatine Kinase 2389 H CK-MB (CK-2) 9.9 H CK-MB (CK-2) Rel Index 0.4 Troponin T 0.094 H 05/12/18 05/13/18 05/13/18 22:44 03:55 03:55 WBC 4.1 L RBC 3.37 L Hgb 11.8 Hct 35.5 MCV 105 H MCH 35 H MCHC 33 RDW 14.3 Plt Count 157 Lymph % (Auto) 24.2 [place] % (Auto) 5.3 Eos % (Auto) 0.5 Baso % (Auto) 0.4 Lymph # 1.0 L [place] # 0.2 Eos # 0.0 Baso # 0.0 Seg Neutrophils % 69.6 Seg Neutrophils # 2.9 Sodium 148 H Potassium 2.0 L* Chloride 95.0 L Carbon Dioxide 48 H* Anion Gap 7 BUN 3 L Creatinine 0.5 L Estimated GFR > 60 BUN/Creatinine Ratio 6 Glucose 151 H POC Glucose Calcium 6.7 L Magnesium 2.40 H Total Creatine Kinase 1967 H CK-MB (CK-2) 7.1 H CK-MB (CK-2) Rel Index 0.3 Troponin T 0.099 H 05/13/18 05/13/18 06:09 09:59 WBC RBC Hgb Hct MCV MCH MCHC RDW Plt Count Lymph % (Auto) [place] % (Auto) Eos % (Auto) Baso % (Auto) Lymph # [place] # Eos # Baso # Seg Neutrophils % Seg Neutrophils # Sodium Potassium Chloride Carbon Dioxide Anion Gap BUN Creatinine Estimated GFR BUN/Creatinine Ratio Glucose POC Glucose 131 H 205 H Calcium Magnesium Total Creatine Kinase CK-MB (CK-2) CK-MB (CK-2) Rel Index Troponin T Assessment and Plan 1.chronic diarrhea 2.alcohol dependency -afebrile -WBC WNL -TSH 3.310 -abd CT 2013 showed pancreatitis (pancreatic enzymes normal at that time) -EGD/colonoscopy 08/2016 for diarrhea revealed mild esophagitis, antral erosions, duodenal polyp, and normal colon- bx results benign -patient reports chronic diarrhea over 1 year with BMs x 2-8/day with liquid non-bloody diarrhea -etiology- likely 2/2 alcohol (pancreatic insufficiency?) vs other (doubt infectious or IBD) -will order fecal elastase -start on trial of pancreatic enzymes -no plan for scope at this time -consider abd CT for further evaluation once medically stable (r/o colitis/evaluate pancreas) -continue supportive care -electrolyte management per primary team -further recommendations to follow
[2018-05-13] MEDS ORDERED: CREON DR 12,000 UNITS PO ONE (12:32)
[2018-05-13] MEDS ORDERED: KCL 10MEQ/100ML 10 MEQ/100 ML BAG IV SCH (14:00)
[2018-05-13] MEDS ORDERED: K-DUR PO SCH (14:00)
[2018-05-13 15:36] LABS: BUN/Creatinine Ratio 5; Blood Urea Nitrogen 3 mg/dL (7-17); Calcium 6.8 mg/dL (8.4-10.2); Hemolysis Index 4
--- NOTE | 2018-05-13 17:49 | Progress Note ---
Assessment and Plan Syncope Severe metabolic derangements as well as syncope Hypotension Transient autonomic imbalance Severe hypokalemia hypomagnesemia Type II NSTEMI Rhabdomyolysis Severe chronic diarrhea Chronic and active EtOH use. - continue supplemental oxygen to keep sats > 90% -wean off vasopresor support for MAP>65 -IVF with electrolyte replacement - prn anti-diarrheal - GI & VTE prophylaxis - GI evaluation ongoing - PT/OT as tolerated - replace potassium - continue other care per attending / other consultants Subjective Date of service: 05/13/18 Principal diagnosis: nstemi Interval history: Patient is seen today for: Hypotension; Syncope ; Transient autonomic imbalance; Severe hypokalemia Seen and examined at bedside; 24hour events reviewed; nursing and respiratory care staff consulted; no adverse overnight events reported to me; resting peace fully in bed; overall feels better; denies acute chest pains or palpitations; no N/V/F/C Objective - Exam Narrative Exam: General.: Mild distress, nontoxic HEENT: Moist mucous membranes, extraocular muscles intact, no lymphadenopathy Neck: supple Cardiac: S1-S2 heard Lungs: Mild basilar crackles Abdomen: soft , nontender, nondistended, bowel sounds positive Extremities: no edema clubbing or cyanosis Skin: no rash or lesions Neurologic: no gross focal deficits Psych: calm, and cooperative Vital Signs - 12hr 05/13/18 05/13/18 05/13/18 05:51 06:00 06:11 Temperature Pulse Rate 55 L 55 L 58 L Pulse Rate [ Apical] Respiratory 21 16 11 L Rate Blood Pressure 109/76 91/64 91/64 O2 Sat by Pulse 99 97 94 Oximetry 05/13/18 05/13/18 05/13/18 06:21 06:31 06:41 Temperature Pulse Rate 55 L 56 L 60 Pulse Rate [ Apical] Respiratory 17 15 11 L Rate Blood Pressure 89/51 100/68 100/68 O2 Sat by Pulse 93 91 91 Oximetry 05/13/18 05/13/18 05/13/18 06:51 07:01 07:11 Temperature Pulse Rate 66 62 58 L Pulse Rate [ Apical] Respiratory 14 8 L 21 Rate Blood Pressure 110/77 120/86 120/86 O2 Sat by Pulse 99 93 92 Oximetry 05/13/18 05/13/18 05/13/18 07:21 07:31 07:41 Temperature Pulse Rate 57 L 58 L 56 L Pulse Rate [ Apical] Respiratory 20 20 19 Rate Blood Pressure 120/82 121/83 121/83 O2 Sat by Pulse 93 93 94 Oximetry 05/13/18 05/13/18 05/13/18 07:51 08:00 08:11 Temperature 98.6 F Pulse Rate 56 L 55 L 66 Pulse Rate [ 55 L Apical] Respiratory 19 10 L 9 L Rate Blood Pressure 119/85 122/82 122/82 O2 Sat by Pulse 94 94 98 Oximetry 05/13/18 05/13/18 05/13/18 08:21 08:30 08:41 Temperature Pulse Rate 66 73 72 Pulse Rate [ Apical] Respiratory 16 17 16 Rate Blood Pressure 136/86 122/93 122/93 O2 Sat by Pulse 96 97 95 Oximetry 05/13/18 05/13/18 05/13/18 08:51 09:01 09:11 Temperature Pulse Rate 72 75 70 Pulse Rate [ Apical] Respiratory 15 14 19 Rate Blood Pressure 136/86 97/49 97/49 O2 Sat by Pulse 96 99 97 Oximetry 05/13/18 05/13/18 05/13/18 09:21 09:31 09:41 Temperature Pulse Rate 72 68 70 Pulse Rate [ Apical] Respiratory 25 H 14 10 L Rate Blood Pressure 123/75 114/70 114/70 O2 Sat by Pulse 97 98 96 Oximetry 05/13/18 05/13/18 05/13/18 09:51 10:00 10:11 Temperature Pulse Rate 66 65 77 Pulse Rate [ Apical] Respiratory 22 22 20 Rate Blood Pressure 106/73 108/74 108/74 O2 Sat by Pulse 91 94 96 Oximetry 05/13/18 05/13/18 05/13/18 10:21 10:30 10:41 Temperature Pulse Rate 75 76 75 Pulse Rate [ Apical] Respiratory 26 H 26 H 13 Rate Blood Pressure 114/70 97/62 97/62 O2 Sat by Pulse 85 77 L 88 Oximetry 05/13/18 05/13/18 05/13/18 10:51 11:00 11:11 Temperature Pulse Rate 75 73 78 Pulse Rate [ Apical] Respiratory 25 H 25 H 28 H Rate Blood Pressure 117/73 117/73 107/70 O2 Sat by Pulse 55 L 71 L 58 L Oximetry 05/13/18 05/13/18 05/13/18 11:21 11:30 11:41 Temperature Pulse Rate 64 60 83 Pulse Rate [ Apical] Respiratory 23 20 17 Rate Blood Pressure 117/73 118/76 118/76 O2 Sat by Pulse 99 98 92 Oximetry 05/13/18 05/13/18 05/13/18 11:51 12:00 12:11 Temperature 98.5 F Pulse Rate 67 70 65 Pulse Rate [ 70 Apical] Respiratory 21 22 20 Rate Blood Pressure 118/76 121/89 121/89 O2 Sat by Pulse 97 99 100 Oximetry 05/13/18 05/13/18 05/13/18 12:21 12:30 12:41 Temperature Pulse Rate 59 L 60 72 Pulse Rate [ Apical] Respiratory 20 18 22 Rate Blood Pressure 120/81 123/76 123/76 O2 Sat by Pulse 100 100 100 Oximetry 05/13/18 05/13/18 05/13/18 12:51 13:00 13:11 Temperature Pulse Rate 62 59 L 60 Pulse Rate [ Apical] Respiratory 20 20 19 Rate Blood Pressure 110/79 105/72 105/72 O2 Sat by Pulse 97 98 98 Oximetry 05/13/18 05/13/18 05/13/18 13:21 13:30 13:41 Temperature Pulse Rate 61 62 64 Pulse Rate [ Apical] Respiratory 18 19 18 Rate Blood Pressure 100/66 109/75 109/75 O2 Sat by Pulse 97 99 98 Oximetry 05/13/18 05/13/18 05/13/18 13:51 14:00 14:11 Temperature Pulse Rate 60 60 63 Pulse Rate [ Apical] Respiratory 18 19 17 Rate Blood Pressure 88/61 91/63 91/63 O2 Sat by Pulse 97 98 98 Oximetry 05/13/18 05/13/18 05/13/18 14:21 14:31 14:41 Temperature Pulse Rate 63 69 66 Pulse Rate [ Apical] Respiratory 19 19 20 Rate Blood Pressure 92/62 102/69 102/69 O2 Sat by Pulse 98 96 95 Oximetry 05/13/18 05/13/18 05/13/18 14:51 14:52 15:00 Temperature Pulse Rate 68 76 Pulse Rate [ Apical] Respiratory 23 14 Rate Blood Pressure 108/77 119/87 O2 Sat by Pulse 99 88 98 Oximetry 05/13/18 05/13/18 05/13/18 15:11 15:21 15:30 Temperature Pulse Rate 68 66 73 Pulse Rate [ Apical] Respiratory 12 16 25 H Rate Blood Pressure 119/87 114/83 115/78 O2 Sat by Pulse 99 99 96 Oximetry 05/13/18 05/13/18 05/13/18 15:41 15:51 16:00 Temperature 98.7 F Pulse Rate 75 72 67 Pulse Rate [ Apical] Respiratory 19 20 21 Rate Blood Pressure 115/78 128/92 111/81 O2 Sat by Pulse 97 97 99 Oximetry 05/13/18 16:11 Temperature Pulse Rate 65 Pulse Rate [ Apical] Respiratory 20 Rate Blood Pressure 111/81 O2 Sat by Pulse 99 Oximetry CBC and BMP: 05/16/18 05:41 05/19/18 05:03 ABG, PT/INR, D-dimer: ABG POC ABG pH 7.457 (7.35-7.45) H 05/13/18 14:52 POC ABG pCO2 58.5 (35-45) H 05/13/18 14:52 POC ABG pO2 53 (80-105) L 05/13/18 14:52 POC ABG HCO3 41.3 05/13/18 14:52 POC ABG Total CO2 43 05/13/18 14:52 POC ABG O2 Sat 87 05/13/18 14:52 PT/INR, D-dimer PT 13.3 Sec. (12.2-14.9) 05/12/18 07:00 INR 0.97 (0.87-1.13) 05/12/18 07:00 D-Dimer 202.11 ng/mlDDU (0-234) 05/12/18 07:00 Abnormal lab findings: Abnormal Labs 05/12/18 05/12/18 05/12/18 06:39 07:00 07:00 WBC 4.1 L RBC MCV 102 H MCH 36 H MCHC 35 H Lymph % (Auto) 50.0 H Lymph # POC ABG pH POC ABG pCO2 POC ABG pO2 Sodium 134 L Potassium 1.5 L* Chloride 69.4 L Carbon Dioxide 52 H* BUN 5 L Creatinine 0.5 L Glucose 102 H POC Glucose 110 H Lactic Acid Calcium 8.1 L Magnesium Direct Bilirubin 0.6 H AST 112 H ALT 65 H Total Creatine Kinase 2654 H CK-MB (CK-2) 11.5 H Troponin T 0.144 H* Total Protein 5.7 L Albumin 2.7 L LDL Cholesterol Direct 44 L 01/11/2105/12/18 05/12/18 07:00 08:09 09:20 WBC RBC MCV MCH MCHC Lymph % (Auto) Lymph # POC ABG pH POC ABG pCO2 POC ABG pO2 Sodium Potassium Chloride Carbon Dioxide BUN Creatinine Glucose POC Glucose Lactic Acid 4.00 H* 3.50 H* 4.30 H* Calcium Magnesium Direct Bilirubin AST ALT Total Creatine Kinase CK-MB (CK-2) Troponin T Total Protein Albumin LDL Cholesterol Direct 05/12/18 05/12/18 05/12/18 09:47 10:03 10:47 WBC RBC MCV MCH MCHC Lymph % (Auto) Lymph # POC ABG pH POC ABG pCO2 POC ABG pO2 Sodium 134 L Potassium 1.6 L* Chloride 75.5 L Carbon Dioxide 47 H* BUN 4 L Creatinine 0.6 L Glucose 130 H POC Glucose Lactic Acid 4.60 H* Calcium 7.3 L Magnesium Direct Bilirubin AST ALT Total Creatine Kinase 2530 H CK-MB (CK-2) 11.6 H Troponin T 0.114 H* D Total Protein Albumin LDL Cholesterol Direct 05/12/18 05/12/18 05/12/18 10:47 14:34 16:07 WBC RBC MCV MCH MCHC Lymph % (Auto) Lymph # POC ABG pH POC ABG pCO2 POC ABG pO2 Sodium Potassium 2.0 L* D Chloride 83.4 L Carbon Dioxide 49 H* BUN 4 L Creatinine 0.5 L Glucose 134 H POC Glucose Lactic Acid 3.40 H* Calcium 6.9 L Magnesium Direct Bilirubin AST ALT Total Creatine Kinase 2389 H CK-MB (CK-2) 9.9 H Troponin T 0.094 H Total Protein Albumin LDL Cholesterol Direct 05/12/18 05/12/18 05/12/18 21:10 22:09 22:44 WBC RBC MCV MCH MCHC Lymph % (Auto) Lymph # POC ABG pH POC ABG pCO2 POC ABG pO2 Sodium 146 H D Potassium 2.1 L* Chloride 89.8 L Carbon Dioxide 47 H* BUN 4 L Creatinine 0.6 L Glucose 145 H POC Glucose 144 H Lactic Acid Calcium 6.9 L Magnesium Direct Bilirubin AST ALT Total Creatine Kinase 1967 H CK-MB (CK-2) 7.1 H Troponin T 0.099 H Total Protein Albumin LDL Cholesterol Direct 05/13/18 05/13/18 05/13/18 03:55 03:55 06:09 WBC 4.1 L RBC 3.37 L MCV 105 H MCH 35 H MCHC Lymph % (Auto) Lymph # 1.0 L POC ABG pH POC ABG pCO2 POC ABG pO2 Sodium 148 H Potassium 2.0 L* Chloride 95.0 L Carbon Dioxide 48 H* BUN 3 L Creatinine 0.5 L Glucose 151 H POC Glucose 131 H Lactic Acid Calcium 6.7 L Magnesium 2.40 H Direct Bilirubin AST ALT Total Creatine Kinase CK-MB (CK-2) Troponin T Total Protein Albumin LDL Cholesterol Direct 05/13/18 05/13/18 05/13/18 09:59 14:48 14:52 WBC RBC MCV MCH MCHC Lymph % (Auto) Lymph # POC ABG pH 7.457 H POC ABG pCO2 58.5 H POC ABG pO2 53 L Sodium 147 H Potassium 2.9 L* D Chloride 97.2 L Carbon Dioxide 40 H D BUN 3 L Creatinine 0.6 L Glucose 118 H POC Glucose 205 H Lactic Acid Calcium 6.8 L Magnesium Direct Bilirubin AST ALT Total Creatine Kinase CK-MB (CK-2) Troponin T Total Protein Albumin LDL Cholesterol Direct 05/13/18 15:29 WBC RBC MCV MCH MCHC Lymph % (Auto) Lymph # POC ABG pH POC ABG pCO2 POC ABG pO2 Sodium Potassium Chloride Carbon Dioxide BUN Creatinine Glucose POC Glucose 110 H Lactic Acid Calcium Magnesium Direct Bilirubin AST ALT Total Creatine Kinase CK-MB (CK-2) Troponin T Total Protein Albumin LDL Cholesterol Direct
[2018-05-13] MEDS ORDERED: POTASSIUM CHLORIDE FEEDTUBE ONE (18:00)
--- NOTE | 2018-05-13 20:31 | Progress Note ---
Assessment and Plan Assessment and plan: 53-year-old woman with history of hypertension, chronic diarrhea. She presented after syncopal episode. She passed out in the bathroom cleaning of chest pain that was constant dizziness, tingling in her extremities and generalized weakness. Patient states that she had diarrhea for over a year and has had endoscopy with Dr. Aviles. She has up to 8 episodes of diarrhea per day for the past year. She was hypotensive, required IV fluids and pressors Problems Syncope due to dehydration Transient autonomic imbalance Hypotension Severe hypokalemia and hypomagnesemia Type II NC Rhabdomyolysis Severe chronic diarrhea Plans Continue IV fluids will, wean off pressors Electrolytes have been repleted Conservative medical management, cardiology input appreciated Antidiarrheals fup fecal elastase, GI appreciated Critical care time 35 minutes History Interval history: Review of systems Constitutional: No fevers, no malaise, no joint pains CVS: No chest pain, no orthopnea, no dyspnea on exertion, no pedal edema GI: No abdominal pain, has chronic diarrhea, no vomiting, no constipation Respiratory: No shortness of breath, no wheezing, no coughing Hospitalist Physical - Physical exam Narrative exam: General.: Appears well, no distress, nontoxic HEENT: Moist mucous membranes, extraocular muscles intact, no lymphadenopathy Neck: supple Cardiac: S1-S2 heard Lungs: clear to auscultation bilaterally Abdomen: soft , nontender, nondistended, bowel sounds positive Extremities: no edema clubbing or cyanosis Skin: no rash or lesions Neurologic: no gross focal deficits Psych: calm, and cooperative - Constitutional Vitals: Temp Pulse Resp BP Pulse Ox 98.7 F 92 H 18 139/116 94 05/13/18 16:00 05/13/18 19:00 05/13/18 19:00 05/13/18 19:00 05/13/18 19:00 General appearance: Present: no acute distress Results - Labs CBC & Chem 7: 05/13/18 03:55 05/14/18 07:30 Labs: Laboratory Last Values WBC 4.1 K/mm3 (4.5-11.0) L 05/13/18 03:55 RBC 3.37 M/mm3 (3.65-5.03) L 05/13/18 03:55 Hgb 11.8 gm/dl (10.1-14.3) 05/13/18 03:55 Hct 35.5 % (30.3-42.9) 05/13/18 03:55 MCV 105 fl (79-97) H 05/13/18 03:55 MCH 35 pg (28-32) H 05/13/18 03:55 MCHC 33 % (30-34) 05/13/18 03:55 RDW 14.3 % (13.2-15.2) 05/13/18 03:55 Plt Count 157 K/mm3 (140-440) 05/13/18 03:55 Lymph % (Auto) 24.2 % (13.4-35.0) 05/13/18 03:55 [place] % (Auto) 5.3 % (0.0-7.3) 05/13/18 03:55 Eos % (Auto) 0.5 % (0.0-4.3) 05/13/18 03:55 Baso % (Auto) 0.4 % (0.0-1.8) 05/13/18 03:55 Lymph # 1.0 K/mm3 (1.2-5.4) L 05/13/18 03:55 [place] # 0.2 K/mm3 (0.0-0.8) 05/13/18 03:55 Eos # 0.0 K/mm3 (0.0-0.4) 05/13/18 03:55 Baso # 0.0 K/mm3 (0.0-0.1) 05/13/18 03:55 Seg Neutrophils % 69.6 % (40.0-70.0) 05/13/18 03:55 Seg Neutrophils # 2.9 K/mm3 (1.8-7.7) 05/13/18 03:55 PT 13.3 Sec. (12.2-14.9) 05/12/18 07:00 INR 0.97 (0.87-1.13) 05/12/18 07:00 D-Dimer 202.11 ng/mlDDU (0-234) 05/12/18 07:00 POC ABG pH 7.457 (7.35-7.45) H 05/13/18 14:52 POC ABG pCO2 58.5 (35-45) H 05/13/18 14:52 POC ABG pO2 53 (80-105) L 05/13/18 14:52 POC ABG HCO3 41.3 05/13/18 14:52 POC ABG Total CO2 43 05/13/18 14:52 POC ABG O2 Sat 87 05/13/18 14:52 POC ABG Base Excess 17 05/13/18 14:52 FiO2 21 % 05/13/18 14:52 Sodium 147 mmol/L (137-145) H 05/13/18 14:48 Potassium 2.9 mmol/L (3.6-5.0) L* D 05/13/18 14:48 Chloride 97.2 mmol/L (98-107) L 05/13/18 14:48 Carbon Dioxide 40 mmol/L (22-30) H D 05/13/18 14:48 Anion Gap 13 mmol/L 05/13/18 14:48 BUN 3 mg/dL (7-17) L 05/13/18 14:48 Creatinine 0.6 mg/dL (0.7-1.2) L 05/13/18 14:48 Estimated GFR > 60 ml/min 05/13/18 14:48 BUN/Creatinine Ratio 5 % 05/13/18 14:48 Glucose 118 mg/dL (65-100) H 05/13/18 14:48 POC Glucose 91 (70-105) 05/13/18 18:09 Lactic Acid 3.40 mmol/L (0.7-2.0) H* 05/12/18 10:47 Calcium 6.8 mg/dL (8.4-10.2) L 05/13/18 14:48 Phosphorus 2.90 mg/dL (2.5-4.5) 05/12/18 07:00 Magnesium 2.40 mg/dL (1.7-2.3) H 05/13/18 03:55 Total Bilirubin 1.10 mg/dL (0.1-1.2) 05/12/18 07:00 Direct Bilirubin 0.6 mg/dL (0-0.2) H 05/12/18 07:00 Indirect Bilirubin 0.5 mg/dL 05/12/18 07:00 AST 112 units/L (5-40) H 05/12/18 07:00 ALT 65 units/L (7-56) H 05/12/18 07:00 Alkaline Phosphatase 69 units/L (35-129) 05/12/18 07:00 Ammonia 41.0 umol/L (25-60) 05/12/18 07:00 Total Creatine Kinase 1967 units/L (30-135) H 05/12/18 22:44 CK-MB (CK-2) 7.1 ng/mL (0.0-4.0) H 05/12/18 22:44 CK-MB (CK-2) Rel Index 0.3 (0-4) 05/12/18 22:44 Troponin T 0.099 ng/mL (0.00-0.029) H 05/12/18 22:44 NT-Pro-B Natriuret Pep 800.9 pg/mL (0-900) 05/12/18 07:00 Total Protein 5.7 g/dL (6.3-8.2) L 05/12/18 07:00 Albumin 2.7 g/dL (3.9-5) L 05/12/18 07:00 Albumin/Globulin Ratio 0.9 % 05/12/18 07:00 Triglycerides 118 mg/dL (2-149) 05/12/18 07:00 Cholesterol 102 mg/dL (50-199) 05/12/18 07:00 LDL Cholesterol Direct 44 mg/dL (50-130) L 05/12/18 07:00 HDL Cholesterol 46 mg/dL (40-59) 05/12/18 07:00 Cholesterol/HDL Ratio 2.21 % 05/12/18 07:00 TSH 3.310 mlU/mL (0.270-4.200) 05/12/18 09:47 Free T4 1.31 ng/dL (0.76-1.46) 05/12/18 09:47 Blood Type O POSITIVE 05/12/18 07:00 Antibody Screen Negative 05/12/18 07:00 Nutrition/Malnutrition Assess - Dietary Evaluation Nutrition/Malnutrition Findings: Nutrition Notes Start: 05/13/18 12:49 Freq: Status: Active Protocol: Document 05/13/18 12:49 ROLANDO (Rec: 05/13/18 14:14 ROLANDO [email or web address]) Co-Sign 05/13/18 12:49 LP Nutrition Notes Need for Assessment generated from: director of partnerships Initial or Follow up Assessment Current Diagnoses Hypertension Hyperlipidemia Other Pertinent Diagnosis Neuropathy, Hx of chronic diarrhea, Hx of EtOh and tobacco use Current Diet GI soft Labs/Tests Na: 148 K: 2 Medications Reviewed Height 5 ft 2 in Weight 52.3 kg Usual Body Weight 245 kg [place] Body Weight (lbs) 110.0 BMI 21.0 Intake Prior to Admission Poor Weight change and time frame Pt lost 130lbs during past year Weight Status Appropriate Subjective/Other Information Pt seen for MST screen. Pt was fatigued at time of visit. Pt stated she was only eating one meal per day d/t poor appetite [employer] ACCOUNTS DIRECT[employer]. Pt stated ONS is too expensive at home and that she never drank them when she had them anyways. Pt agreed to try ensure enlive while in hospital. Pt stated she lost 130lbs. over the past year but was unsure why she lost this much weight. Pt stated she vomitted an average of one time daily. Pt denied chewing or swallowing difficulties. Burn Absent Trauma Absent GI Symptoms Nausea Vomiting Diarrhea Current % PO POOR (25-49%) #1 Nutrition Diagnoses Inadequate oral intake Etiology Chronic diarrhea, N/V As Evidenced by Signs and Symptoms Pt report, weight loss of 47% of BW over 12 months, consumption of <50% of meals Diagnosis Progress(for reassessment Continues documentation) Is patient on ventilator? No Is Patient Ambulatory and/or Out of Bed No REE-([facility]-confined to bed) 1296.060 Calculation Used for Recommendations [facility] Additional Notes Pro: 1.2-2g/kg BW (67g-111g) Fluid: 1 ml/kcal Malnutrition Assessment Interpretation of weight loss (Severe) > 20% in 1 year Nutrition Intervention Change Diet Order: Continue GI soft diet Add Supplement/Snack (indicate name/kcal Ensure Enlive daily /protein ) Provides kCal: 350 Provides Protein (gm) 20 Goal #1 Meet at least 80% of kcal and pro needs via PO and ONS intake Anticipated Discharge Needs: Unable to determine Follow-Up By: 05/16/18 Additional Comments F/U: PO and ONS intakes
[2018-05-13] MEDS: PROVENTIL IH PRN (21:00)
[2018-05-13] MEDS: NEURONTIN PO SCH (22:59)
[2018-05-13] MEDS: POTASSIUM CHLORIDE PO SCH (23:00)
[2018-05-13 23:05] LABS: BUN/Creatinine Ratio 4; Blood Urea Nitrogen 2 mg/dL (7-17); Calcium 6.8 mg/dL (8.4-10.2); Hemolysis Index 31
[2018-05-14] MEDS: LOMOTIL PO PRN (00:22)
[2018-05-14] MEDS: NORCO 7.5/325 PO PRN ×3 (06:49→19:57)
[2018-05-14] MEDS: POTASSIUM CHLORIDE PO SCH ×3 (06:49→22:00)
[2018-05-14 08:07] LABS: BUN/Creatinine Ratio 4; Blood Urea Nitrogen 2 mg/dL (7-17); Calcium 6.5 mg/dL (8.4-10.2); Hemolysis Index 10
[2018-05-14] MEDS: LOVENOX SUB-Q SCH ×2 (09:58→22:05)
[2018-05-14] MEDS: PROTONIX PO SCH (09:59)
[2018-05-14] MEDS: ASPIRIN PO SCH (09:59)
[2018-05-14] MEDS: SODIUM CHLORIDE FLUSH SYRINGE 10 ML IV SCH ×2 (10:00→22:00)
--- NOTE | 2018-05-14 10:20 | Progress Note ---
Assessment and Plan Syncope secondary to metabolic Sepsis Hypotension Severe hypokalemia and hypomagnesemia nstemi type 2 Rhabdomyolysis Diarrhea rec: pt is off pressors and k is normal , monitor, stiffness is probably from fluids for low bp, may go to telemtry and cont treatment for sepsis, blood cultures negative stool culture was negative urine culture was probable contamination unclear etiology of elevated lactic acid levels and hypotension Subjective Date of service: 05/14/18 Principal diagnosis: nstemi Interval history: pt lying in bed diarrhea is better , stiffness in the hands Objective Vital Signs Temp Pulse Pulse Pulse Resp Resp BP 05/14/18 09:20 98 H 17 109/88 05/14/18 09:10 107 H 21 98/77 05/14/18 09:00 91 H 19 98/77 05/14/18 08:50 92 H 22 105/76 05/14/18 08:40 91 H 18 109/78 05/14/18 08:30 95 H 23 109/78 05/14/18 08:20 95 H 12 113/81 05/14/18 08:10 95 H 15 114/86 05/14/18 08:00 96 H 12 114/86 05/14/18 07:55 102.1 F H 05/14/18 07:50 100 H 12 119/89 05/14/18 07:40 95 H 19 123/90 05/14/18 07:30 103 H 15 123/90 05/14/18 07:20 106 H 14 126/97 05/14/18 07:10 105 H 20 129/98 05/14/18 07:00 108 H 17 129/98 05/14/18 06:51 112 H 30 H 129/95 05/14/18 06:41 101 H 21 129/95 05/14/18 06:30 102 H 19 129/95 05/14/18 06:21 102 H 10 L 123/91 05/14/18 06:11 102 H 8 L 119/91 05/14/18 06:00 102 H 11 L 119/91 05/14/18 05:51 104 H 10 L 118/78 05/14/18 05:41 101 H 16 115/87 05/14/18 05:30 96 H 19 115/87 05/14/18 05:21 95 H 26 H 117/82 05/14/18 05:11 94 H 28 H 111/84 05/14/18 05:00 92 H 19 111/84 05/14/18 04:51 95 H 21 117/82 05/14/18 04:41 94 H 23 114/81 05/14/18 04:30 93 H 18 114/81 05/14/18 04:21 94 H 24 112/81 05/14/18 04:11 98 H 14 122/92 05/14/18 04:00 98.8 F 99 H 99 H 14 118/88 05/14/18 03:51 102 H 9 L 118/88 05/14/18 03:41 105 H 12 125/90 05/14/18 03:30 102 H 15 125/90 05/14/18 03:21 94 H 25 H 117/82 05/14/18 03:11 96 H 25 H 109/80 05/14/18 03:00 95 H 24 109/80 05/14/18 02:51 96 H 26 H 113/79 05/14/18 02:41 94 H 24 105/77 05/14/18 02:30 94 H 26 H 114/85 05/14/18 02:21 94 H 25 H 105/77 05/14/18 02:11 95 H 24 114/83 05/14/18 02:00 94 H 27 H 114/80 05/14/18 01:51 92 H 24 109/85 05/14/18 01:41 92 H 25 H 114/86 05/14/18 01:30 96 H 25 H 114/83 05/14/18 01:21 96 H 29 H 114/86 05/14/18 01:11 96 H 21 114/83 05/14/18 01:00 94 H 21 115/84 05/14/18 00:51 96 H 9 L 114/83 05/14/18 00:41 98 H 13 126/92 05/14/18 00:30 95 H 13 112/83 05/14/18 00:21 99 H 15 127/94 05/14/18 00:11 100 H 11 L 116/87 05/14/18 00:09 97 H 13 116/87 05/14/18 00:01 103 H 24 141/105 05/14/18 00:00 98.9 F 103 H 24 05/13/18 23:58 98 H 16 126/92 05/13/18 23:51 98 H 15 126/92 05/13/18 23:41 97 H 10 L 116/87 05/13/18 23:30 94 H 15 116/87 05/13/18 23:21 95 H 15 123/89 05/13/18 23:11 93 H 20 111/84 05/13/18 23:00 92 H 17 111/84 05/13/18 22:51 93 H 12 122/92 05/13/18 22:41 98 H 18 132/95 05/13/18 22:30 93 H 19 132/95 05/13/18 22:21 93 H 18 123/89 05/13/18 22:11 94 H 21 119/91 05/13/18 22:00 92 H 20 119/91 05/13/18 21:51 91 H 26 H 122/87 05/13/18 21:41 92 H 26 H 125/91 05/13/18 21:30 91 H 25 H 116/90 05/13/18 21:21 90 25 H 119/88 05/13/18 21:11 92 H 22 125/91 05/13/18 21:00 95 H 28 H 125/91 05/13/18 20:51 92 H 23 103/73 05/13/18 20:41 98 H 29 H 138/105 05/13/18 20:30 97 H 21 136/107 05/13/18 20:21 92 H 18 138/105 05/13/18 20:11 89 16 136/92 05/13/18 20:05 92 H 20 05/13/18 20:00 98.7 F 88 88 24 136/92 05/13/18 19:55 88 20 05/13/18 19:51 90 22 129/92 05/13/18 19:41 96 H 34 H 139/116 05/13/18 19:31 91 H 31 H 150/87 05/13/18 19:21 87 18 131/97 05/13/18 19:11 89 29 H 139/116 05/13/18 19:00 92 H 18 139/116 05/13/18 18:51 85 8 L 126/99 05/13/18 18:41 83 21 118/84 05/13/18 18:30 79 11 L 118/84 05/13/18 18:21 80 22 119/83 05/13/18 18:11 78 25 H 112/77 05/13/18 18:00 82 17 123/91 05/13/18 17:51 81 24 123/91 05/13/18 17:41 77 14 123/99 05/13/18 17:30 82 14 123/99 05/13/18 17:21 78 27 H 123/89 05/13/18 17:11 79 20 129/96 05/13/18 17:00 79 15 129/96 05/13/18 16:51 70 16 120/88 05/13/18 16:41 73 14 151/108 05/13/18 16:31 85 12 151/108 05/13/18 16:21 69 22 112/74 05/13/18 16:11 65 20 111/81 05/13/18 16:00 98.7 F 67 21 111/81 05/13/18 15:51 72 20 128/92 05/13/18 15:41 75 19 115/78 05/13/18 15:30 73 25 H 115/78 05/13/18 15:21 66 16 114/83 05/13/18 15:11 68 12 119/87 05/13/18 15:00 76 14 119/87 05/13/18 14:52 05/13/18 14:51 68 23 108/77 05/13/18 14:41 66 20 102/69 05/13/18 14:31 69 19 102/69 05/13/18 14:21 63 19 92/62 05/13/18 14:11 63 17 91/63 05/13/18 14:00 60 19 91/63 05/13/18 13:51 60 18 88/61 05/13/18 13:41 64 18 109/75 05/13/18 13:30 62 19 109/75 05/13/18 13:21 61 18 100/66 05/13/18 13:11 60 19 105/72 05/13/18 13:00 59 L 20 105/72 05/13/18 12:51 62 20 110/79 05/13/18 12:41 72 22 123/76 05/13/18 12:30 60 18 123/76 05/13/18 12:21 59 L 20 120/81 05/13/18 12:11 65 20 121/89 05/13/18 12:00 98.5 F 70 70 22 121/89 05/13/18 11:51 67 21 118/76 05/13/18 11:41 83 17 118/76 05/13/18 11:30 60 20 118/76 05/13/18 11:21 64 23 117/73 05/13/18 11:11 78 28 H 107/70 05/13/18 11:00 73 25 H 117/73 05/13/18 10:51 75 25 H 117/73 05/13/18 10:41 75 13 97/62 05/13/18 10:30 76 26 H 97/62 05/13/18 10:21 75 26 H 114/70 Pulse Ox 05/14/18 09:20 95 05/14/18 09:10 97 05/14/18 09:00 96 05/14/18 08:50 97 05/14/18 08:40 97 05/14/18 08:30 96 05/14/18 08:20 97 05/14/18 08:10 97 05/14/18 08:00 97 05/14/18 07:55 05/14/18 07:50 97 05/14/18 07:40 97 05/14/18 07:30 97 05/14/18 07:20 97 05/14/18 07:10 97 05/14/18 07:00 99 05/14/18 06:51 100 05/14/18 06:41 98 05/14/18 06:30 97 05/14/18 06:21 97 05/14/18 06:11 98 05/14/18 06:00 96 05/14/18 05:51 97 05/14/18 05:41 99 05/14/18 05:30 98 05/14/18 05:21 98 05/14/18 05:11 98 05/14/18 05:00 97 05/14/18 04:51 98 05/14/18 04:41 98 05/14/18 04:30 100 05/14/18 04:21 98 05/14/18 04:11 98 05/14/18 04:00 97 05/14/18 03:51 95 05/14/18 03:41 94 05/14/18 03:30 97 05/14/18 03:21 96 05/14/18 03:11 95 05/14/18 03:00 96 05/14/18 02:51 95 05/14/18 02:41 97 05/14/18 02:30 95 05/14/18 02:21 96 05/14/18 02:11 94 05/14/18 02:00 94 05/14/18 01:51 95 05/14/18 01:41 93 05/14/18 01:30 93 05/14/18 01:21 94 05/14/18 01:11 93 05/14/18 01:00 95 05/14/18 00:51 95 05/14/18 00:41 93 05/14/18 00:30 98 05/14/18 00:21 94 05/14/18 00:11 98 05/14/18 00:09 97 05/14/18 00:01 95 05/14/18 00:00 99 05/13/18 23:58 95 05/13/18 23:51 97 05/13/18 23:41 98 05/13/18 23:30 99 05/13/18 23:21 99 05/13/18 23:11 99 05/13/18 23:00 98 05/13/18 22:51 99 05/13/18 22:41 96 05/13/18 22:30 97 05/13/18 22:21 99 05/13/18 22:11 97 05/13/18 22:00 98 05/13/18 21:51 95 05/13/18 21:41 94 05/13/18 21:30 94 05/13/18 21:21 95 05/13/18 21:11 94 05/13/18 21:00 94 05/13/18 20:51 95 05/13/18 20:41 88 05/13/18 20:30 92 05/13/18 20:21 93 05/13/18 20:11 99 05/13/18 20:05 05/13/18 20:00 95 05/13/18 19:55 94 05/13/18 19:51 96 05/13/18 19:41 95 05/13/18 19:31 93 05/13/18 19:21 96 05/13/18 19:11 94 05/13/18 19:00 94 05/13/18 18:51 97 05/13/18 18:41 97 05/13/18 18:30 99 05/13/18 18:21 96 05/13/18 18:11 97 05/13/18 18:00 98 05/13/18 17:51 94 05/13/18 17:41 97 05/13/18 17:30 97 05/13/18 17:21 96 05/13/18 17:11 97 05/13/18 17:00 100 05/13/18 16:51 98 05/13/18 16:41 97 05/13/18 16:31 92 05/13/18 16:21 97 05/13/18 16:11 99 05/13/18 16:00 99 05/13/18 15:51 97 05/13/18 15:41 97 05/13/18 15:30 96 05/13/18 15:21 99 05/13/18 15:11 99 05/13/18 15:00 98 05/13/18 14:52 88 05/13/18 14:51 99 05/13/18 14:41 95 05/13/18 14:31 96 05/13/18 14:21 98 05/13/18 14:11 98 05/13/18 14:00 98 05/13/18 13:51 97 05/13/18 13:41 98 05/13/18 13:30 99 05/13/18 13:21 97 05/13/18 13:11 98 05/13/18 13:00 98 05/13/18 12:51 97 05/13/18 12:41 100 05/13/18 12:30 100 05/13/18 12:21 100 05/13/18 12:11 100 05/13/18 12:00 99 05/13/18 11:51 97 05/13/18 11:41 92 05/13/18 11:30 98 05/13/18 11:21 99 05/13/18 11:11 58 L 05/13/18 11:00 71 L 05/13/18 10:51 55 L 05/13/18 10:41 88 05/13/18 10:30 77 L 05/13/18 10:21 85 - Physical Examination General: No Apparent Distress HEENT: Positive: PERRL, EOMI Neck: Positive: neck supple Cardiac: Positive: Reg Rate and Rhythm Lungs: Positive: clear to auscultation Neuro: Positive: Grossly Intact Abdomen: Positive: Soft Extremities: Present: normal. Absent: edema - Labs and Meds Cardiac Enzymes 05/14/18 Range/Units 07:30 CK-MB (CK-2) 8.0 H (0.0-4.0) ng/mL Comprehensive Metabolic Panel 05/13/18 05/13/18 05/14/18 Range/Units 14:48 22:09 07:30 Sodium 147 H 145 144 (137-145) mmol/L Potassium 2.9 L* D 3.2 L 3.8 (3.6-5.0) mmol/L Chloride 97.2 L 96.5 L 95.9 L (98-107) mmol/L Carbon Dioxide 40 H D 39 H 37 H (22-30) mmol/L BUN 3 L 2 L 2 L (7-17) mg/dL Creatinine 0.6 L 0.5 L 0.5 L (0.7-1.2) mg/dL Glucose 118 H 102 H 100 (65-100) mg/dL Calcium 6.8 L 6.8 L 6.5 L (8.4-10.2) mg/dL - Imaging and Cardiology Echo: report reviewed (normal lv function ef 55-60% ) - Telemetry EKG Rhythm: Sinus Rhythm
--- NOTE | 2018-05-14 10:51 | Progress Note ---
Assessment and Plan Syncope Severe metabolic derangements as well as syncope Hypotension Transient autonomic imbalance Severe hypokalemia hypomagnesemia Type II NSTEMI Rhabdomyolysis Severe chronic diarrhea Chronic and active EtOH use. - continue supplemental oxygen to keep sats > 90% -remains off vasopresor support -IVF with electrolyte replacement - prn anti-diarrheal - GI & VTE prophylaxis - GI evaluation ongoing - PT/OT as tolerated - replace potassium -alcohol withdrawal precaution -Substance abuse counselling - continue other care per attending / other consultants Subjective Date of service: 05/14/18 Principal diagnosis: nstemi Interval history: Patient is seen today for: Hypotension; Syncope ; Transient autonomic imbalance; Severe hypokalemia Seen and examined at bedside; 24hour events reviewed; nursing and respiratory care staff consulted; no adverse overnight events reported to me; resting peacefully in bed; overall feels better; denies acute chest pains or palpitations; no N/V/F/C Objective - Exam Narrative Exam: General.: No distress nontoxic HEENT: Moist mucous membranes, extraocular muscles intact, no lymphadenopathy Neck: supple, noo JVD Cardiac: S1-S2 heard, RRR Lungs: Basilar crackles, good AE bilaterally Abdomen: soft , nontender, nondistended, bowel sounds positive Extremities: no edema clubbing or cyanosis Skin: no rash or lesions Neurologic: no gross focal deficits Psych: calm, and cooperative Vital Signs - 12hr 05/13/18 05/13/18 05/13/18 23:00 23:11 23:21 Temperature Pulse Rate 92 H 93 H 95 H Pulse Rate [ Apical] Respiratory 17 20 15 Rate Blood Pressure 111/84 111/84 123/89 O2 Sat by Pulse 98 99 99 Oximetry 05/13/18 05/13/18 05/13/18 23:30 23:41 23:51 Temperature Pulse Rate 94 H 97 H 98 H Pulse Rate [ Apical] Respiratory 15 10 L 15 Rate Blood Pressure 116/87 116/87 126/92 O2 Sat by Pulse 99 98 97 Oximetry 05/13/18 05/14/18 05/14/18 23:58 00:00 00:01 Temperature 98.9 F Pulse Rate 98 H 103 H Pulse Rate [ 103 H Apical] Respiratory 16 24 24 Rate Blood Pressure 126/92 141/105 O2 Sat by Pulse 95 99 95 Oximetry 05/14/18 05/14/18 05/14/18 00:09 00:11 00:21 Temperature Pulse Rate 97 H 100 H 99 H Pulse Rate [ Apical] Respiratory 13 11 L 15 Rate Blood Pressure 116/87 116/87 127/94 O2 Sat by Pulse 97 98 94 Oximetry 05/14/18 05/14/18 05/14/18 00:30 00:41 00:51 Temperature Pulse Rate 95 H 98 H 96 H Pulse Rate [ Apical] Respiratory 13 13 9 L Rate Blood Pressure 112/83 126/92 114/83 O2 Sat by Pulse 98 93 95 Oximetry 05/14/18 05/14/18 05/14/18 01:00 01:11 01:21 Temperature Pulse Rate 94 H 96 H 96 H Pulse Rate [ Apical] Respiratory 21 21 29 H Rate Blood Pressure 115/84 114/83 114/86 O2 Sat by Pulse 95 93 94 Oximetry 05/14/18 05/14/18 05/14/18 01:30 01:41 01:51 Temperature Pulse Rate 96 H 92 H 92 H Pulse Rate [ Apical] Respiratory 25 H 25 H 24 Rate Blood Pressure 114/83 114/86 109/85 O2 Sat by Pulse 93 93 95 Oximetry 05/14/18 05/14/18 05/14/18 02:00 02:11 02:21 Temperature Pulse Rate 94 H 95 H 94 H Pulse Rate [ Apical] Respiratory 27 H 24 25 H Rate Blood Pressure 114/80 114/83 105/77 O2 Sat by Pulse 94 94 96 Oximetry 05/14/18 05/14/18 05/14/18 02:30 02:41 02:51 Temperature Pulse Rate 94 H 94 H 96 H Pulse Rate [ Apical] Respiratory 26 H 24 26 H Rate Blood Pressure 114/85 105/77 113/79 O2 Sat by Pulse 95 97 95 Oximetry 05/14/18 05/14/18 05/14/18 03:00 03:11 03:21 Temperature Pulse Rate 95 H 96 H 94 H Pulse Rate [ Apical] Respiratory 24 25 H 25 H Rate Blood Pressure 109/80 109/80 117/82 O2 Sat by Pulse 96 95 96 Oximetry 05/14/18 05/14/18 05/14/18 03:30 03:41 03:51 Temperature Pulse Rate 102 H 105 H 102 H Pulse Rate [ Apical] Respiratory 15 12 9 L Rate Blood Pressure 125/90 125/90 118/88 O2 Sat by Pulse 97 94 95 Oximetry 05/14/18 05/14/18 05/14/18 04:00 04:11 04:21 Temperature 98.8 F Pulse Rate 99 H 98 H 94 H Pulse Rate [ 99 H Apical] Respiratory 14 14 24 Rate Blood Pressure 118/88 122/92 112/81 O2 Sat by Pulse 97 98 98 Oximetry 05/14/18 05/14/18 05/14/18 04:30 04:41 04:51 Temperature Pulse Rate 93 H 94 H 95 H Pulse Rate [ Apical] Respiratory 18 23 21 Rate Blood Pressure 114/81 114/81 117/82 O2 Sat by Pulse 100 98 98 Oximetry 05/14/18 05/14/18 05/14/18 05:00 05:11 05:21 Temperature Pulse Rate 92 H 94 H 95 H Pulse Rate [ Apical] Respiratory 19 28 H 26 H Rate Blood Pressure 111/84 111/84 117/82 O2 Sat by Pulse 97 98 98 Oximetry 05/14/18 05/14/18 05/14/18 05:30 05:41 05:51 Temperature Pulse Rate 96 H 101 H 104 H Pulse Rate [ Apical] Respiratory 19 16 10 L Rate Blood Pressure 115/87 115/87 118/78 O2 Sat by Pulse 98 99 97 Oximetry 05/14/18 05/14/18 05/14/18 06:00 06:11 06:21 Temperature Pulse Rate 102 H 102 H 102 H Pulse Rate [ Apical] Respiratory 11 L 8 L 10 L Rate Blood Pressure 119/91 119/91 123/91 O2 Sat by Pulse 96 98 97 Oximetry 05/14/18 05/14/18 05/14/18 06:30 06:41 06:51 Temperature Pulse Rate 102 H 101 H 112 H Pulse Rate [ Apical] Respiratory 19 21 30 H Rate Blood Pressure 129/95 129/95 129/95 O2 Sat by Pulse 97 98 100 Oximetry 05/14/18 05/14/18 05/14/18 07:00 07:10 07:20 Temperature Pulse Rate 108 H 105 H 106 H Pulse Rate [ Apical] Respiratory 17 20 14 Rate Blood Pressure 129/98 129/98 126/97 O2 Sat by Pulse 99 97 97 Oximetry 05/14/18 05/14/18 05/14/18 07:30 07:40 07:50 Temperature Pulse Rate 103 H 95 H 100 H Pulse Rate [ Apical] Respiratory 15 19 12 Rate Blood Pressure 123/90 123/90 119/89 O2 Sat by Pulse 97 97 97 Oximetry 05/14/18 05/14/18 05/14/18 07:55 08:00 08:10 Temperature 102.1 F H Pulse Rate 96 H 95 H Pulse Rate [ Apical] Respiratory 12 15 Rate Blood Pressure 114/86 114/86 O2 Sat by Pulse 97 97 Oximetry 05/14/18 05/14/18 05/14/18 08:20 08:30 08:40 Temperature Pulse Rate 95 H 95 H 91 H Pulse Rate [ Apical] Respiratory 12 23 18 Rate Blood Pressure 113/81 109/78 109/78 O2 Sat by Pulse 97 96 97 Oximetry 05/14/18 05/14/18 05/14/18 08:50 09:00 09:10 Temperature Pulse Rate 92 H 91 H 107 H Pulse Rate [ Apical] Respiratory 22 19 21 Rate Blood Pressure 105/76 98/77 98/77 O2 Sat by Pulse 97 96 97 Oximetry 05/14/18 09:20 Temperature Pulse Rate 98 H Pulse Rate [ Apical] Respiratory 17 Rate Blood Pressure 109/88 O2 Sat by Pulse 95 Oximetry CBC and BMP: 05/16/18 05:41 05/19/18 05:03 ABG, PT/INR, D-dimer: ABG POC ABG pH 7.457 (7.35-7.45) H 05/13/18 14:52 POC ABG pCO2 58.5 (35-45) H 05/13/18 14:52 POC ABG pO2 53 (80-105) L 05/13/18 14:52 POC ABG HCO3 41.3 05/13/18 14:52 POC ABG Total CO2 43 05/13/18 14:52 POC ABG O2 Sat 87 05/13/18 14:52 PT/INR, D-dimer PT 13.3 Sec. (12.2-14.9) 05/12/18 07:00 INR 0.97 (0.87-1.13) 05/12/18 07:00 D-Dimer 202.11 ng/mlDDU (0-234) 05/12/18 07:00 Abnormal lab findings: Abnormal Labs 05/12/18 05/12/18 05/12/18 06:39 07:00 07:00 WBC 4.1 L RBC MCV 102 H MCH 36 H MCHC 35 H Lymph % (Auto) 50.0 H Lymph # POC ABG pH POC ABG pCO2 POC ABG pO2 Sodium 134 L Potassium 1.5 L* Chloride 69.4 L Carbon Dioxide 52 H* BUN 5 L Creatinine 0.5 L Glucose 102 H POC Glucose 110 H Lactic Acid Calcium 8.1 L Magnesium Direct Bilirubin 0.6 H AST 112 H ALT 65 H Total Creatine Kinase 2654 H CK-MB (CK-2) 11.5 H Troponin T 0.144 H* Total Protein 5.7 L Albumin 2.7 L LDL Cholesterol Direct 44 L 05/12/18 05/12/18 05/12/18 07:00 08:09 09:20 WBC RBC MCV MCH MCHC Lymph % (Auto) Lymph # POC ABG pH POC ABG pCO2 POC ABG pO2 Sodium Potassium Chloride Carbon Dioxide BUN Creatinine Glucose POC Glucose Lactic Acid 4.00 H* 3.50 H* 4.30 H* Calcium Magnesium Direct Bilirubin AST ALT Total Creatine Kinase CK-MB (CK-2) Troponin T Total Protein Albumin LDL Cholesterol Direct 05/12/18 05/12/18 05/12/18 09:47 10:03 10:47 WBC RBC MCV MCH MCHC Lymph % (Auto) Lymph # POC ABG pH POC ABG pCO2 POC ABG pO2 Sodium 134 L Potassium 1.6 L* Chloride 75.5 L Carbon Dioxide 47 H* BUN 4 L Creatinine 0.6 L Glucose 130 H POC Glucose Lactic Acid 4.60 H* Calcium 7.3 L Magnesium Direct Bilirubin AST ALT Total Creatine Kinase 2530 H CK-MB (CK-2) 11.6 H Troponin T 0.114 H* D Total Protein Albumin LDL Cholesterol Direct 05/12/18 05/12/18 05/12/18 10:47 14:34 16:07 WBC RBC MCV MCH MCHC Lymph % (Auto) Lymph # POC ABG pH POC ABG pCO2 POC ABG pO2 Sodium Potassium 2.0 L* D Chloride 83.4 L Carbon Dioxide 49 H* BUN 4 L Creatinine 0.5 L Glucose 134 H POC Glucose Lactic Acid 3.40 H* Calcium 6.9 L Magnesium Direct Bilirubin AST ALT Total Creatine Kinase 2389 H CK-MB (CK-2) 9.9 H Troponin T 0.094 H Total Protein Albumin LDL Cholesterol Direct 05/12/18 05/12/18 05/12/18 21:10 22:09 22:44 WBC RBC MCV MCH MCHC Lymph % (Auto) Lymph # POC ABG pH POC ABG pCO2 POC ABG pO2 Sodium 146 H D Potassium 2.1 L* Chloride 89.8 L Carbon Dioxide 47 H* BUN 4 L Creatinine 0.6 L Glucose 145 H POC Glucose 144 H Lactic Acid Calcium 6.9 L Magnesium Direct Bilirubin AST ALT Total Creatine Kinase 1967 H CK-MB (CK-2) 7.1 H Troponin T 0.099 H Total Protein Albumin LDL Cholesterol Direct 05/13/18 05/13/18 05/13/18 03:55 03:55 06:09 WBC 4.1 L RBC 3.37 L MCV 105 H MCH 35 H MCHC Lymph % (Auto) Lymph # 1.0 L POC ABG pH POC ABG pCO2 POC ABG pO2 Sodium 148 H Potassium 2.0 L* Chloride 95.0 L Carbon Dioxide 48 H* BUN 3 L Creatinine 0.5 L Glucose 151 H POC Glucose 131 H Lactic Acid Calcium 6.7 L Magnesium 2.40 H Direct Bilirubin AST ALT Total Creatine Kinase CK-MB (CK-2) Troponin T Total Protein Albumin LDL Cholesterol Direct 05/13/18 05/13/18 05/13/18 09:59 14:48 14:52 WBC RBC MCV MCH MCHC Lymph % (Auto) Lymph # POC ABG pH 7.457 H POC ABG pCO2 58.5 H POC ABG pO2 53 L Sodium 147 H Potassium 2.9 L* D Chloride 97.2 L Carbon Dioxide 40 H D BUN 3 L Creatinine 0.6 L Glucose 118 H POC Glucose 205 H Lactic Acid Calcium 6.8 L Magnesium Direct Bilirubin AST ALT Total Creatine Kinase CK-MB (CK-2) Troponin T Total Protein Albumin LDL Cholesterol Direct 05/13/18 05/13/18 05/14/18 15:29 22:09 02:00 WBC RBC MCV MCH MCHC Lymph % (Auto) Lymph # POC ABG pH POC ABG pCO2 POC ABG pO2 Sodium Potassium 3.2 L Chloride 96.5 L Carbon Dioxide 39 H BUN 2 L Creatinine 0.5 L Glucose 102 H POC Glucose 110 H 117 H Lactic Acid Calcium 6.8 L Magnesium Direct Bilirubin AST ALT Total Creatine Kinase CK-MB (CK-2) Troponin T Total Protein Albumin LDL Cholesterol Direct 05/14/18 05/14/18 07:30 07:30 WBC RBC MCV MCH MCHC Lymph % (Auto) Lymph # POC ABG pH POC ABG pCO2 POC ABG pO2 Sodium Potassium Chloride 95.9 L Carbon Dioxide 37 H BUN 2 L Creatinine 0.5 L Glucose POC Glucose Lactic Acid Calcium 6.5 L Magnesium Direct Bilirubin AST ALT Total Creatine Kinase 2252 H CK-MB (CK-2) 8.0 H Troponin T 0.189 H* D Total Protein Albumin LDL Cholesterol Direct
--- NOTE | 2018-05-14 13:01 | Gastroenterology Progress Note ---
Addendum entered and electronically signed by YESENIA JONES MD 05/14/18 22:49: I have personally interviewed and examined the patient. I agree with the above A/P. The patient is clinically improved by slightly tremulous (?early DTs). Will continue current clinical course. Doubt pancreatic disease, but will check CT scan for evidence of chronic pancreatitis. Original Note: Assessment and Plan 1.chronic diarrhea 2.alcohol dependency -afebrile -WBC WNL -TSH 3.310 -abd CT 2013 showed pancreatitis (pancreatic enzymes normal at that time) -EGD/colonoscopy 08/2016 for diarrhea revealed mild esophagitis, antral erosions, duodenal polyp, and normal colon- bx results benign -patient reports chronic diarrhea over 1 year with BMs x 2-8/day with liquid non-bloody diarrhea -etiology- likely 2/2 alcohol (pancreatic insufficiency?) vs other (doubt infectious or IBD) -clinically, patient reports diarrhea improving this am. No abd pain or N/V. Tolerating diet. -will order abd CT to assess for signs of end-organ damage to pancreas -fecal elastase-pending -continue pancreatic enzymes -no plan for scope -continue supportive care -electrolyte management per primary team -alcohol/tobacco cessation discussed with patient -will follow Subjective Date of service: 05/14/18 Principal diagnosis: chronic diarrhea Interval history: Patient sitting up in bedside chair this am w/o acute distress. Off pressors. Reports continued diarrhea last night but has improved with am with no BMs as of yet. Abd pain/cramping also improved. No N/V. Tolerating diet. Objective - Constitutional Vitals: Temp Pulse Resp BP Pulse Ox 97.4 F L 93 H 15 97/64 100 05/14/18 11:56 05/14/18 12:10 05/14/18 12:10 05/14/18 12:10 05/14/18 12:10 General appearance: no acute distress - Respiratory Respiratory: bilateral: CTA - Cardiovascular Rhythm: regular Heart Sounds: Present: S1 & S2 - Gastrointestinal General gastrointestinal: Present: soft, non-tender, non-distended, normal bowel sounds - Neurologic Neurological: alert and oriented x3 - Labs CBC & Chem 7: 05/13/18 03:55 05/14/18 07:30 Labs: Laboratory Results - last 24 hr 05/13/18 05/13/18 05/13/18 14:48 14:52 15:29 POC ABG pH 7.457 H POC ABG pCO2 58.5 H POC ABG pO2 53 L POC ABG HCO3 41.3 POC ABG Total CO2 43 POC ABG O2 Sat 87 POC ABG Base Excess 17 FiO2 21 Sodium 147 H Potassium 2.9 L* D Chloride 97.2 L Carbon Dioxide 40 H D Anion Gap 13 BUN 3 L Creatinine 0.6 L Estimated GFR > 60 BUN/Creatinine Ratio 5 Glucose 118 H POC Glucose 110 H Calcium 6.8 L Total Creatine Kinase CK-MB (CK-2) CK-MB (CK-2) Rel Index Troponin T 05/13/18 05/13/18 05/13/18 18:09 21:00 22:09 POC ABG pH POC ABG pCO2 POC ABG pO2 POC ABG HCO3 POC ABG Total CO2 POC ABG O2 Sat POC ABG Base Excess FiO2 Sodium 145 Potassium 3.2 L Chloride 96.5 L Carbon Dioxide 39 H Anion Gap 13 BUN 2 L Creatinine 0.5 L Estimated GFR > 60 BUN/Creatinine Ratio 4 Glucose 102 H POC Glucose 91 94 Calcium 6.8 L Total Creatine Kinase CK-MB (CK-2) CK-MB (CK-2) Rel Index Troponin T 05/14/18 05/14/18 05/14/18 02:00 05:40 07:30 POC ABG pH POC ABG pCO2 POC ABG pO2 POC ABG HCO3 POC ABG Total CO2 POC ABG O2 Sat POC ABG Base Excess FiO2 Sodium 144 Potassium 3.8 Chloride 95.9 L Carbon Dioxide 37 H Anion Gap 15 BUN 2 L Creatinine 0.5 L Estimated GFR > 60 BUN/Creatinine Ratio 4 Glucose 100 POC Glucose 117 H 82 Calcium 6.5 L Total Creatine Kinase CK-MB (CK-2) CK-MB (CK-2) Rel Index Troponin T 05/14/18 05/14/18 05/14/18 07:30 09:31 11:24 POC ABG pH POC ABG pCO2 POC ABG pO2 POC ABG HCO3 POC ABG Total CO2 POC ABG O2 Sat POC ABG Base Excess FiO2 Sodium Potassium Chloride Carbon Dioxide Anion Gap BUN Creatinine Estimated GFR BUN/Creatinine Ratio Glucose POC Glucose 100 137 H Calcium Total Creatine Kinase 2252 H CK-MB (CK-2) 8.0 H CK-MB (CK-2) Rel Index 0.3 Troponin T 0.189 H* D
--- NOTE | 2018-05-14 13:38 | Progress Note ---
Assessment and Plan Assessment and plan: 53-year-old woman with history of hypertension, chronic diarrhea. She presented after syncopal episode. She passed out in the bathroom cleaning of chest pain that was constant dizziness, tingling in her extremities and generalized weakness. Patient states that she had diarrhea for over a year and has had endoscopy with Dr. Aviles. She has up to 8 episodes of diarrhea per day for the past year. She was hypotensive, required IV fluids and pressors Problems Syncope due to dehydration Transient autonomic imbalance Hypotension Severe hypokalemia and hypomagnesemia Type II [place] Rhabdomyolysis Severe chronic diarrhea Plans Continue IV fluids will, wean off pressors Electrolytes have been repleted Conservative medical management, cardiology input appreciated Antidiarrheals fup fecal elastase, GI appreciated Critical care time 35 minutes History Interval history: Review of systems Constitutional: No fevers, no malaise, no joint pains CVS: No chest pain, no orthopnea, no dyspnea on exertion, no pedal edema GI: No abdominal pain, has chronic diarrhea- improved on lomotil, no vomiting, no constipation Respiratory: No shortness of breath, no wheezing, no coughing Hospitalist Physical - Physical exam Narrative exam: General.: Appears well, no distress, nontoxic HEENT: Moist mucous membranes, extraocular muscles intact, no lymphadenopathy Neck: supple Cardiac: S1-S2 heard Lungs: clear to auscultation bilaterally Abdomen: soft , nontender, nondistended, bowel sounds positive Extremities: no edema clubbing or cyanosis Skin: no rash or lesions Neurologic: no gross focal deficits Psych: calm, and cooperative - Constitutional Vitals: Temp Pulse Resp BP Pulse Ox 97.4 F L 93 H 15 97/64 100 05/14/18 11:56 05/14/18 12:10 05/14/18 12:10 05/14/18 12:10 05/14/18 12:10 General appearance: Present: no acute distress Results - Labs CBC & Chem 7: 05/16/18 05:41 05/16/18 05:41 Labs: Laboratory Last Values WBC 4.1 K/mm3 (4.5-11.0) L 05/13/18 03:55 RBC 3.37 M/mm3 (3.65-5.03) L 05/13/18 03:55 Hgb 11.8 gm/dl (10.1-14.3) 05/13/18 03:55 Hct 35.5 % (30.3-42.9) 05/13/18 03:55 MCV 105 fl (79-97) H 05/13/18 03:55 MCH 35 pg (28-32) H 05/13/18 03:55 MCHC 33 % (30-34) 05/13/18 03:55 RDW 14.3 % (13.2-15.2) 05/13/18 03:55 Plt Count 157 K/mm3 (140-440) 05/13/18 03:55 Lymph % (Auto) 24.2 % (13.4-35.0) 05/13/18 03:55 [place] % (Auto) 5.3 % (0.0-7.3) 05/13/18 03:55 Eos % (Auto) 0.5 % (0.0-4.3) 05/13/18 03:55 Baso % (Auto) 0.4 % (0.0-1.8) 05/13/18 03:55 Lymph # 1.0 K/mm3 (1.2-5.4) L 05/13/18 03:55 [place] # 0.2 K/mm3 (0.0-0.8) 05/13/18 03:55 Eos # 0.0 K/mm3 (0.0-0.4) 05/13/18 03:55 Baso # 0.0 K/mm3 (0.0-0.1) 05/13/18 03:55 Seg Neutrophils % 69.6 % (40.0-70.0) 05/13/18 03:55 Seg Neutrophils # 2.9 K/mm3 (1.8-7.7) 05/13/18 03:55 PT 13.3 Sec. (12.2-14.9) 05/12/18 07:00 INR 0.97 (0.87-1.13) 05/12/18 07:00 D-Dimer 202.11 ng/mlDDU (0-234) 05/12/18 07:00 POC ABG pH 7.457 (7.35-7.45) H 05/13/18 14:52 POC ABG pCO2 58.5 (35-45) H 05/13/18 14:52 POC ABG pO2 53 (80-105) L 05/13/18 14:52 POC ABG HCO3 41.3 05/13/18 14:52 POC ABG Total CO2 43 05/13/18 14:52 POC ABG O2 Sat 87 05/13/18 14:52 POC ABG Base Excess 17 05/13/18 14:52 FiO2 21 % 05/13/18 14:52 Sodium 144 mmol/L (137-145) 05/14/18 07:30 Potassium 3.8 mmol/L (3.6-5.0) 05/14/18 07:30 Chloride 95.9 mmol/L (98-107) L 05/14/18 07:30 Carbon Dioxide 37 mmol/L (22-30) H 05/14/18 07:30 Anion Gap 15 mmol/L 05/14/18 07:30 BUN 2 mg/dL (7-17) L 05/14/18 07:30 Creatinine 0.5 mg/dL (0.7-1.2) L 05/14/18 07:30 Estimated GFR > 60 ml/min 05/14/18 07:30 BUN/Creatinine Ratio 4 % 05/14/18 07:30 Glucose 100 mg/dL (65-100) 05/14/18 07:30 POC Glucose 137 (70-105) H 05/14/18 11:24 Lactic Acid 3.40 mmol/L (0.7-2.0) H* 05/12/18 10:47 Calcium 6.5 mg/dL (8.4-10.2) L 05/14/18 07:30 Phosphorus 2.90 mg/dL (2.5-4.5) 05/12/18 07:00 Magnesium 2.40 mg/dL (1.7-2.3) H 05/13/18 03:55 Total Bilirubin 1.10 mg/dL (0.1-1.2) 05/12/18 07:00 Direct Bilirubin 0.6 mg/dL (0-0.2) H 05/12/18 07:00 Indirect Bilirubin 0.5 mg/dL 05/12/18 07:00 AST 112 units/L (5-40) H 05/12/18 07:00 ALT 65 units/L (7-56) H 05/12/18 07:00 Alkaline Phosphatase 69 units/L (35-129) 05/12/18 07:00 Ammonia 41.0 umol/L (25-60) 05/12/18 07:00 Total Creatine Kinase 2252 units/L (30-135) H 05/14/18 07:30 CK-MB (CK-2) 8.0 ng/mL (0.0-4.0) H 05/14/18 07:30 CK-MB (CK-2) Rel Index 0.3 (0-4) 05/14/18 07:30 Troponin T 0.189 ng/mL (0.00-0.029) H* D 05/14/18 07:30 NT-Pro-B Natriuret Pep 800.9 pg/mL (0-900) 05/12/18 07:00 Total Protein 5.7 g/dL (6.3-8.2) L 05/12/18 07:00 Albumin 2.7 g/dL (3.9-5) L 05/12/18 07:00 Albumin/Globulin Ratio 0.9 % 05/12/18 07:00 Triglycerides 118 mg/dL (2-149) 05/12/18 07:00 Cholesterol 102 mg/dL (50-199) 05/12/18 07:00 LDL Cholesterol Direct 44 mg/dL (50-130) L 05/12/18 07:00 HDL Cholesterol 46 mg/dL (40-59) 05/12/18 07:00 Cholesterol/HDL Ratio 2.21 % 05/12/18 07:00 TSH 3.310 mlU/mL (0.270-4.200) 05/12/18 09:47 Free T4 1.31 ng/dL (0.76-1.46) 05/12/18 09:47 Blood Type O POSITIVE 05/12/18 07:00 Antibody Screen Negative 05/12/18 07:00 Nutrition/Malnutrition Assess - Dietary Evaluation Nutrition/Malnutrition Findings: Nutrition Notes Start: 05/13/18 12:49 Freq: Status: Active Protocol: Document 05/13/18 12:49 ROLANDO (Rec: 05/13/18 14:14 ROLANDO [email or web address]) Co-Sign 05/13/18 12:49 LP Nutrition Notes Need for Assessment generated from: insurance claims representative Initial or Follow up Assessment Current Diagnosis Hypertension Hyperlipidemia Other Pertinent Diagnosis Neuropathy, Hx of chronic diarrhea, Hx of EtOh and tobacco use Current Diet GI soft Labs/Tests Na: 148 K: 2 Pertinent Medications Reviewed Height 5 ft 2 in Weight 52.3 kg Usual Body Weight 245 kg [place] Body Weight (lbs) 110.0 BMI 21.0 Intake Prior to Admission Poor Weight change and time frame Pt lost 130lbs during past year Weight Status Appropriate Subjective/Other Information Pt seen for MST screen. Pt was fatigued at time of visit. Pt stated she was only eating one meal per day d/t poor appetite [employer]. Pt stated ONS is too expensive at home and that she never drank them when she had them anyways. Pt agreed to try ensure enlive while in hospital. Pt stated she lost 130lbs. over the past year but was unsure why she lost this much weight. Pt stated she vomitted an average of one time daily. Pt denied chewing or swallowing difficulties. Burn Absent Trauma Absent GI Symptoms Nausea Vomiting Diarrhea Current % PO Poor (25-49%) #1 Nutrition Diagnosis Inadequate oral intake Etiology Chronic diarrhea, N/V As Evidenced by Signs and Symptoms Pt report, weight loss of 47% of BW over 12 months, consumption of <50% of meals Diagnosis Progress(for reassessment Continues documentation) Is patient on ventilator? No Is Patient Ambulatory and/or Out of Bed No REE-([facility]-confined to bed) 1296.060 Calculation Used for Recommendations [facility] Additional Notes Pro: 1.2-2g/kg BW (67g-111g) Fluid: 1 ml/kcal Malnutrition Assessment Interpretation of weight loss (severe) > 20% in 1 year Nutrition Intervention Change Diet Order: Continue GI soft diet Add Supplement/Snack (indicate name/kcal Ensure Enlive daily /protein ) Provides kCal: 350 Provides Protein (gm) 20 Goal #1 Meet at least 80% of kcal and pro needs via PO and ONS intake Anticipated Discharge Needs: Unable to determine Follow-Up By: 05/16/18 Additional Comments F/U: PO and ONS intakes
--- NOTE | 2018-05-14 18:16 | Cat Scan Report ---
FINAL REPORT PROCEDURE: CT abdomen and pelvis with contrast. TECHNIQUE: Computerized axial tomography of the abdomen and pelvis was performed after the IV inject ion of iodinated nonionic contrast. HISTORY: Chronic diarrhea, history of pancreatitis. COMPARISON: CT abdomen and pelvis 05/22/2016. FINDINGS: There is subsegmental atelectasis in the dependent portions of both lower lobes. There are moderately large bilateral pleural effusions. The heart size is normal. There is diffuse fatty metamorphosis of the liver. The pancreas and spleen appear normal. The gallbladder is present. There is no biliary di latation. The adrenal glands are not enlarged. Both kidneys appear normal in size and configuration. The abdominal aorta has a normal caliber. There is atherosclerotic calcification in the abdominal aor ta and both common iliac arteries. There is no retroperitoneal adenopathy. The unopacified gastrointe stinal tract is unremarkable. I believe there is a normal appendix present. The bladder, uterus and a dnexal regions appear normal. The regional skeleton appears intact. IMPRESSION: Moderately large bilateral pleural effusions. Fatty metamorphosis of the liver. Atherosclerosis. No d efinite signs of acute disease in the abdomen or pelvis.
[2018-05-14 18:19] LABS: BUN/Creatinine Ratio 4; Blood Urea Nitrogen 2 mg/dL (7-17); Calcium 6.7 mg/dL (8.4-10.2); Hemolysis Index 2
[2018-05-14] MEDS ORDERED: KCL 40 MEQ in NACL 0.45% 500 ML IV SCH (19:30)
[2018-05-14] MEDS: NEURONTIN PO SCH (22:00)
[2018-05-14] MEDS ORDERED: BANOPHEN PO ONE (23:16)
[2018-05-15] MEDS: NORCO 7.5/325 PO PRN ×3 (03:14→17:53)
[2018-05-15 06:38] LABS: BUN/Creatinine Ratio 4; Blood Urea Nitrogen 2 mg/dL (7-17); Calcium 6.9 mg/dL (8.4-10.2); Hemolysis Index 4
[2018-05-15] MEDS: ASPIRIN PO SCH (09:42)
[2018-05-15] MEDS: LOMOTIL PO PRN (09:42)
[2018-05-15] MEDS: LOVENOX SUB-Q SCH ×2 (09:43→22:49)
--- NOTE | 2018-05-15 10:09 | Progress Note ---
Assessment and Plan Syncope secondary to metabolic Sepsis Hypotension Severe hypokalemia and hypomagnesemia nstemi type 2 Rhabdomyolysis Diarrhea rec: pt bp is more stable and will do stress test in am for abnl trop and needs better diarrhea control and oob to ambulate Subjective Date of service: 05/15/18 Principal diagnosis: chronic diarrhea Interval history: pt has no chest pian or sob , diarrhea last night Objective Vital Signs Temp Pulse Resp BP Pulse Ox 05/15/18 09:11 94 05/15/18 06:10 97 H 17 107/82 95 05/15/18 06:00 99 H 19 126/94 94 05/15/18 05:50 92 H 22 107/82 94 05/15/18 05:40 99 H 25 H 107/82 94 05/15/18 05:30 90 19 107/82 95 05/15/18 05:20 99 H 23 107/82 93 05/15/18 05:10 99 H 17 107/82 95 05/15/18 05:00 100 H 16 107/82 96 05/15/18 04:50 106 H 17 129/92 97 05/15/18 04:40 100 H 25 H 129/92 95 05/15/18 04:30 102 H 24 129/92 94 05/15/18 04:20 102 H 8 L 129/92 98 05/15/18 04:10 108 H 15 129/92 97 05/15/18 04:00 99.0 F 101 H 10 L 129/92 93 05/15/18 03:50 101 H 21 124/95 97 05/15/18 03:40 97 H 10 L 124/95 96 05/15/18 03:30 104 H 26 H 124/95 95 05/15/18 03:20 105 H 14 124/95 93 05/15/18 03:14 28 H 05/15/18 03:10 106 H 25 H 124/95 94 05/15/18 03:00 101 H 21 124/95 05/15/18 02:50 99 H 23 128/91 95 05/15/18 02:40 97 H 22 128/91 95 05/15/18 02:30 99 H 21 128/91 97 05/15/18 02:20 98 H 23 128/91 95 05/15/18 02:10 96 H 22 128/91 94 05/15/18 02:00 96 H 22 128/91 95 05/15/18 01:50 94 H 22 142/100 96 05/15/18 01:40 102 H 18 142/100 94 05/15/18 01:30 99 H 10 L 142/100 95 05/15/18 01:20 113 H 16 129/95 05/15/18 01:10 99 H 24 129/95 96 05/15/18 01:00 100 H 21 129/95 96 05/15/18 00:50 98 H 22 142/100 05/15/18 00:40 97 H 23 142/100 05/15/18 00:30 96 H 20 142/100 05/15/18 00:20 101 H 24 142/100 05/15/18 00:10 103 H 17 142/100 05/15/18 00:02 107 H 18 142/100 05/15/18 00:00 98.7 F 99 H 19 138/95 05/14/18 23:50 100 H 23 120/89 05/14/18 23:40 97 H 22 120/89 05/14/18 23:30 98 H 17 120/89 05/14/18 23:20 102 H 16 138/95 05/14/18 23:10 98 H 10 L 138/95 05/14/18 23:00 114 H 26 H 120/89 05/14/18 22:50 92 H 22 120/89 94 05/14/18 22:40 94 H 17 120/89 95 05/14/18 22:30 95 H 14 120/89 94 05/14/18 22:20 92 H 20 120/89 94 05/14/18 22:10 96 H 21 120/89 93 05/14/18 22:00 102 H 21 120/89 92 05/14/18 21:50 99 H 21 122/90 90 05/14/18 21:40 95 H 16 122/90 92 05/14/18 21:30 98 H 24 122/90 92 05/14/18 21:27 92 05/14/18 21:25 92 05/14/18 21:20 100 H 24 122/90 92 05/14/18 21:10 100 H 25 H 122/90 91 05/14/18 21:00 101 H 23 126/94 92 05/14/18 20:50 98 H 22 126/94 93 05/14/18 20:40 100 H 15 126/94 95 05/14/18 20:30 104 H 17 126/94 94 05/14/18 20:20 111 H 26 H 126/94 93 05/14/18 20:10 120 H 24 126/94 05/14/18 20:00 98.8 F 126/94 05/14/18 19:57 16 05/14/18 19:50 107 H 22 106/74 93 05/14/18 19:44 99.1 F 05/14/18 19:40 109 H 14 106/74 94 05/14/18 19:30 102 H 13 106/74 95 05/14/18 19:20 103 H 13 106/74 95 05/14/18 19:10 105 H 24 106/74 94 05/14/18 19:00 105 H 13 106/74 97 05/14/18 18:50 109 H 12 138/103 100 05/14/18 18:40 109 H 15 138/103 100 05/14/18 18:30 105 H 9 L 138/103 99 05/14/18 18:20 110 H 15 138/103 99 05/14/18 18:10 108 H 14 138/103 99 05/14/18 18:00 114 H 28 H 138/103 96 05/14/18 17:50 110 H 10 L 121/88 97 05/14/18 16:50 98 H 20 139/93 94 05/14/18 16:40 94 H 20 139/93 99 05/14/18 16:30 97 H 21 139/93 95 05/14/18 16:20 101 H 23 139/93 96 05/14/18 16:10 100 H 22 139/93 97 05/14/18 16:04 99.9 F H 05/14/18 16:00 100 H 9 L 139/93 95 05/14/18 15:50 108 H 19 139/93 95 05/14/18 15:40 101 H 26 H 139/93 90 05/14/18 15:30 91 H 9 L 139/93 99 05/14/18 15:20 98 H 20 139/93 94 05/14/18 15:10 98 H 12 139/93 95 05/14/18 15:00 103 H 14 139/93 96 05/14/18 14:50 110 H 20 139/93 93 05/14/18 14:40 107 H 17 110/80 96 05/14/18 14:30 103 H 18 110/80 97 05/14/18 14:20 103 H 10 L 110/80 97 05/14/18 14:10 109 H 19 110/80 97 05/14/18 14:00 105 H 19 110/80 97 05/14/18 13:50 107 H 22 110/80 96 05/14/18 13:40 119 H 33 H 110/80 93 05/14/18 13:30 109 H 14 97/64 94 05/14/18 13:20 104 H 10 L 97/64 97 05/14/18 13:10 106 H 16 97/64 100 05/14/18 13:00 94 H 22 110/80 98 05/14/18 12:50 95 H 18 112/76 94 05/14/18 12:40 95 H 12 112/76 97 05/14/18 12:30 101 H 23 97/64 98 05/14/18 12:20 96 H 15 97/64 98 05/14/18 12:10 93 H 15 97/64 100 05/14/18 12:00 94 H 23 97/64 98 05/14/18 11:56 97.4 F L 05/14/18 11:50 96 H 9 L 118/84 99 05/14/18 11:40 108 H 17 118/84 83 L 05/14/18 11:30 94 H 18 112/76 97 05/14/18 11:20 101 H 23 123/96 98 05/14/18 11:10 98 H 26 H 118/87 98 05/14/18 11:00 103 H 17 118/87 98 05/14/18 10:50 102 H 26 H 118/84 97 05/14/18 10:40 107 H 23 120/82 97 05/14/18 10:30 122 H 28 H 120/82 05/14/18 10:20 108 H 25 H 120/82 94 05/14/18 10:10 110 H 24 109/88 89 - Physical Examination General: No Apparent Distress HEENT: Positive: PERRL, EOMI Neck: Positive: neck supple Cardiac: Positive: Reg Rate and Rhythm Lungs: Positive: clear to auscultation Neuro: Positive: Grossly Intact Abdomen: Positive: Soft Extremities: Present: normal. Absent: edema - Labs and Meds Comprehensive Metabolic Panel 05/14/18 05/15/18 Range/Units 17:44 04:10 Sodium 138 139 (137-145) mmol/L Potassium 2.9 L* D 3.3 L (3.6-5.0) mmol/L Chloride 90.5 L 94.2 L (98-107) mmol/L Carbon Dioxide 34 H 36 H (22-30) mmol/L BUN 2 L 2 L (7-17) mg/dL Creatinine 0.5 L 0.5 L (0.7-1.2) mg/dL Glucose 88 127 H (65-100) mg/dL Calcium 6.7 L 6.9 L (8.4-10.2) mg/dL - Imaging and Cardiology Echo: report reviewed (normal lv function ef 55-60% ) - Telemetry EKG Rhythm: Sinus Tachycardia
[2018-05-15] MEDS: POTASSIUM CHLORIDE PO SCH ×3 (10:46→22:50)
--- NOTE | 2018-05-15 11:46 | Gastroenterology Progress Note ---
Addendum entered and electronically signed by YESENIA JONES MD 05/15/18 15:10: I have personally interviewed and examined the patient. I agree with the above A/P. Her diarrhea is better now that she is EtOH-free for the last 3 days. Continue current plan. Will f/u on the fecal elastase. Original Note: Assessment and Plan 1.chronic diarrhea 2.alcohol dependency -stool culture negative -abd CT 2013 showed pancreatitis (pancreatic enzymes normal at that time) -repeat CT yesterday showed moderate large gus pleural effusions, fatty metamorphosis of the liver, and atherosclerosis but no sign of acute abd/plevis disease-pancreas normal -EGD/colonoscopy 08/2016 for diarrhea revealed mild esophagitis, antral erosions, duodenal polyp, and normal colon- bx results benign -patient with chronic diarrhea over 1 year with BMs x 2-8/day with liquid non- bloody diarrhea -etiology- likely 2/2 alcohol (pancreatic insufficiency?) vs other (doubt infectious or IBD) -clinically, patient reports feeling better with diarrhea improving but has had BMs x 3 so far today. No abd pain or N/V. Tolerating diet. -fecal elastase-pending -continue pancreatic enzymes -no plan for scope -continue supportive care -electrolyte management per primary team -alcohol/tobacco cessation discussed with patient -further recommendations to follow Subjective Date of service: 05/15/18 Principal diagnosis: chronic diarrhea Interval history: Patient resting in bed this am w/o distress. Reports feeling better. Diarrhea improved but has had 3 BMs this am with loose stool. No abd pain or N/V. Tolerating diet. Objective - Constitutional Vitals: Temp Pulse Resp BP Pulse Ox 99.0 F 97 H 17 107/82 94 05/15/18 04:00 05/15/18 06:10 05/15/18 06:10 05/15/18 06:10 05/15/18 09:11 General appearance: no acute distress - Respiratory Respiratory: bilateral: CTA - Cardiovascular Rhythm: regular Heart Sounds: Present: S1 & S2 - Gastrointestinal General gastrointestinal: Present: soft, non-tender, non-distended, normal bowel sounds - Neurologic Neurological: alert and oriented x3 - Labs CBC & Chem 7: 05/13/18 03:55 05/15/18 04:10 Labs: Laboratory Results - last 24 hr 05/14/18 05/14/18 05/14/18 16:16 17:44 21:29 Sodium 138 Potassium 2.9 L* D Chloride 90.5 L Carbon Dioxide 34 H Anion Gap 16 BUN 2 L Creatinine 0.5 L Estimated GFR > 60 BUN/Creatinine Ratio 4 Glucose 88 POC Glucose 91 117 H Calcium 6.7 L 05/15/18 05/15/18 05/15/18 01:47 04:10 05:30 Sodium 139 Potassium 3.3 L Chloride 94.2 L Carbon Dioxide 36 H Anion Gap 12 BUN 2 L Creatinine 0.5 L Estimated GFR > 60 BUN/Creatinine Ratio 4 Glucose 127 H POC Glucose 90 107 H Calcium 6.9 L
--- NOTE | 2018-05-15 15:05 | Progress Note ---
Assessment and Plan Hypotension Syncope Transient autonomic imbalance Severe hypokalemia hypomagnesemia Type II NSTEMI Rhabdomyolysis Severe chronic diarrhea - continue supplemental oxygen to keep sats > 90% - tentatively for stress testing in am - prn antidiarrheals - GI & VTE prophylaxis - GI evaluation ongoing - PT/OT as tolerated - replace potassium - continue other care per attending / other consultants ... re-evaluate in am & prn Subjective Date of service: 05/15/18 Principal diagnosis: chronic diarrhea Interval history: Patient is seen today for: Hypotension; Syncope ; Transient autonomic imbalance; Severe hypokalemia Seen and examined at bedside; 24hour events reviewed; nursing and respiratory care staff consulted; no adverse overnight events reported to me; resting peacefully in bed; overall feels better; denies acute chest pains or palpitations; no N/V/F/C Objective Vital Signs - 12hr 05/15/18 05/15/18 05/15/18 03:10 03:14 03:20 Temperature Pulse Rate 106 H 105 H Respiratory 25 H 28 H 14 Rate Blood Pressure 124/95 124/95 O2 Sat by Pulse 94 93 Oximetry 05/15/18 05/15/18 05/15/18 03:30 03:40 03:50 Temperature Pulse Rate 104 H 97 H 101 H Respiratory 26 H 10 L 21 Rate Blood Pressure 124/95 124/95 124/95 O2 Sat by Pulse 95 96 97 Oximetry 05/15/18 05/15/18 05/15/18 04:00 04:10 04:20 Temperature 99.0 F Pulse Rate 101 H 108 H 102 H Respiratory 10 L 15 8 L Rate Blood Pressure 129/92 129/92 129/92 O2 Sat by Pulse 93 97 98 Oximetry 05/15/18 05/15/18 05/15/18 04:30 04:40 04:50 Temperature Pulse Rate 102 H 100 H 106 H Respiratory 24 25 H 17 Rate Blood Pressure 129/92 129/92 129/92 O2 Sat by Pulse 94 95 97 Oximetry 05/15/18 05/15/18 05/15/18 05:00 05:10 05:20 Temperature Pulse Rate 100 H 99 H 99 H Respiratory 16 17 23 Rate Blood Pressure 107/82 107/82 107/82 O2 Sat by Pulse 96 95 93 Oximetry 01/10/19 01/10/19 01/10/19 05:30 05:40 05:50 Temperature Pulse Rate 90 99 H 92 H Respiratory 19 25 H 22 Rate Blood Pressure 107/82 107/82 107/82 O2 Sat by Pulse 95 94 94 Oximetry 05/15/18 05/15/18 05/15/18 06:00 06:10 09:11 Temperature Pulse Rate 99 H 97 H Respiratory 19 17 Rate Blood Pressure 126/94 107/82 O2 Sat by Pulse 94 95 94 Oximetry Constitutional: no acute distress, alert, other (middle aged AAF, norocephalic and atraumatic with normal respiratory effort at rest) ENT: oropharynx moist Neck: supple, no lymphadenopathy, no JVD Effort: normal Ascultation: Bilateral: clear Percussion: Bilateral: not dull Cardiovascular: regular rate and rhythm Gastrointestinal: normoactive bowel sounds, soft, non-tender, non-distended Integumentary: normal Extremities: no cyanosis, no edema, pulses normal, no ischemia or petechiae Neurologic: normal mental status, non-focal exam, pupils equal and round, CN II- XII normal Psychiatric: mood appropriate, affect normal CBC and BMP: 05/16/18 05:41 05/16/18 05:41 ABG, PT/INR, D-dimer: ABG POC ABG pH 7.457 (7.35-7.45) H 05/13/18 14:52 POC ABG pCO2 58.5 (35-45) H 05/13/18 14:52 POC ABG pO2 53 (80-105) L 05/13/18 14:52 POC ABG HCO3 41.3 05/13/18 14:52 POC ABG Total CO2 43 05/13/18 14:52 POC ABG O2 Sat 87 05/13/18 14:52 PT/INR, D-dimer PT 13.3 Sec. (12.2-14.9) 05/12/18 07:00 INR 0.97 (0.87-1.13) 05/12/18 07:00 D-Dimer 202.11 ng/mlDDU (0-234) 05/12/18 07:00 Abnormal lab findings: Abnormal Labs 05/12/18 05/12/18 05/12/18 06:39 07:00 07:00 WBC 4.1 L RBC MCV 102 H MCH 36 H MCHC 35 H Lymph % (Auto) 50.0 H Lymph # POC ABG pH POC ABG pCO2 POC ABG pO2 Sodium 134 L Potassium 1.5 L* Chloride 69.4 L Carbon Dioxide 52 H* BUN 5 L Creatinine 0.5 L Glucose 102 H POC Glucose 110 H Lactic Acid Calcium 8.1 L Magnesium Direct Bilirubin 0.6 H AST 112 H ALT 65 H Total Creatine Kinase 2654 H CK-MB (CK-2) 11.5 H Troponin T 0.144 H* Total Protein 5.7 L Albumin 2.7 L LDL Cholesterol Direct 44 L 05/12/18 05/12/18 05/12/18 07:00 08:09 09:20 WBC RBC MCV MCH MCHC Lymph % (Auto) Lymph # POC ABG pH POC ABG pCO2 POC ABG pO2 Sodium Potassium Chloride Carbon Dioxide BUN Creatinine Glucose POC Glucose Lactic Acid 4.00 H* 3.50 H* 4.30 H* Calcium Magnesium Direct Bilirubin AST ALT Total Creatine Kinase CK-MB (CK-2) Troponin T Total Protein Albumin LDL Cholesterol Direct 05/12/18 05/12/18 05/12/18 09:47 10:03 10:47 WBC RBC MCV MCH MCHC Lymph % (Auto) Lymph # POC ABG pH POC ABG pCO2 POC ABG pO2 Sodium 134 L Potassium 1.6 L* Chloride 75.5 L Carbon Dioxide 47 H* BUN 4 L Creatinine 0.6 L Glucose 130 H POC Glucose Lactic Acid 4.60 H* Calcium 7.3 L Magnesium Direct Bilirubin AST ALT Total Creatine Kinase 2530 H CK-MB (CK-2) 11.6 H Troponin T 0.114 H* D Total Protein Albumin LDL Cholesterol Direct 05/12/18 05/12/18 05/12/18 10:47 14:34 16:07 WBC RBC MCV MCH MCHC Lymph % (Auto) Lymph # POC ABG pH POC ABG pCO2 POC ABG pO2 Sodium Potassium 2.0 L* D Chloride 83.4 L Carbon Dioxide 49 H* BUN 4 L Creatinine 0.5 L Glucose 134 H POC Glucose Lactic Acid 3.40 H* Calcium 6.9 L Magnesium Direct Bilirubin AST ALT Total Creatine Kinase 2389 H CK-MB (CK-2) 9.9 H Troponin T 0.094 H Total Protein Albumin LDL Cholesterol Direct 05/12/18 05/12/18 05/12/18 21:10 22:09 22:44 WBC RBC MCV MCH MCHC Lymph % (Auto) Lymph # POC ABG pH POC ABG pCO2 POC ABG pO2 Sodium 146 H D Potassium 2.1 L* Chloride 89.8 L Carbon Dioxide 47 H* BUN 4 L Creatinine 0.6 L Glucose 145 H POC Glucose 144 H Lactic Acid Calcium 6.9 L Magnesium Direct Bilirubin AST ALT Total Creatine Kinase 1967 H CK-MB (CK-2) 7.1 H Troponin T 0.099 H Total Protein Albumin LDL Cholesterol Direct 05/13/18 05/13/18 05/13/18 03:55 03:55 06:09 WBC 4.1 L RBC 3.37 L MCV 105 H MCH 35 H MCHC Lymph % (Auto) Lymph # 1.0 L POC ABG pH POC ABG pCO2 POC ABG pO2 Sodium 148 H Potassium 2.0 L* Chloride 95.0 L Carbon Dioxide 48 H* BUN 3 L Creatinine 0.5 L Glucose 151 H POC Glucose 131 H Lactic Acid Calcium 6.7 L Magnesium 2.40 H Direct Bilirubin AST ALT Total Creatine Kinase CK-MB (CK-2) Troponin T Total Protein Albumin LDL Cholesterol Direct 05/13/18 05/13/18 05/13/18 09:59 14:48 14:52 WBC RBC MCV MCH MCHC Lymph % (Auto) Lymph # POC ABG pH 7.457 H POC ABG pCO2 58.5 H POC ABG pO2 53 L Sodium 147 H Potassium 2.9 L* D Chloride 97.2 L Carbon Dioxide 40 H D BUN 3 L Creatinine 0.6 L Glucose 118 H POC Glucose 205 H Lactic Acid Calcium 6.8 L Magnesium Direct Bilirubin AST ALT Total Creatine Kinase CK-MB (CK-2) Troponin T Total Protein Albumin LDL Cholesterol Direct 05/13/18 05/13/18 05/14/18 15:29 22:09 02:00 WBC RBC MCV MCH MCHC Lymph % (Auto) Lymph # POC ABG pH POC ABG pCO2 POC ABG pO2 Sodium Potassium 3.2 L Chloride 96.5 L Carbon Dioxide 39 H BUN 2 L Creatinine 0.5 L Glucose 102 H POC Glucose 110 H 117 H Lactic Acid Calcium 6.8 L Magnesium Direct Bilirubin AST ALT Total Creatine Kinase CK-MB (CK-2) Troponin T Total Protein Albumin LDL Cholesterol Direct 05/14/18 05/14/18 05/14/18 07:30 07:30 11:24 WBC RBC MCV MCH MCHC Lymph % (Auto) Lymph # POC ABG pH POC ABG pCO2 POC ABG pO2 Sodium Potassium Chloride 95.9 L Carbon Dioxide 37 H BUN 2 L Creatinine 0.5 L Glucose POC Glucose 137 H Lactic Acid Calcium 6.5 L Magnesium Direct Bilirubin AST ALT Total Creatine Kinase 2252 H CK-MB (CK-2) 8.0 H Troponin T 0.189 H* D Total Protein Albumin LDL Cholesterol Direct 05/14/18 05/14/18 05/15/18 17:44 21:29 04:10 WBC RBC MCV MCH MCHC Lymph % (Auto) Lymph # POC ABG pH POC ABG pCO2 POC ABG pO2 Sodium Potassium 2.9 L* D 3.3 L Chloride 90.5 L 94.2 L Carbon Dioxide 34 H 36 H BUN 2 L 2 L Creatinine 0.5 L 0.5 L Glucose 127 H POC Glucose 117 H Lactic Acid Calcium 6.7 L 6.9 L Magnesium Direct Bilirubin AST ALT Total Creatine Kinase CK-MB (CK-2) Troponin T Total Protein Albumin LDL Cholesterol Direct 05/15/18 05:30 WBC RBC MCV MCH MCHC Lymph % (Auto) Lymph # POC ABG pH POC ABG pCO2 POC ABG pO2 Sodium Potassium Chloride Carbon Dioxide BUN Creatinine Glucose POC Glucose 107 H Lactic Acid Calcium Magnesium Direct Bilirubin AST ALT Total Creatine Kinase CK-MB (CK-2) Troponin T Total Protein Albumin LDL Cholesterol Direct Chest x-ray: image reviewed (no focal infiltrate) Allied health notes reviewed: nursing
--- NOTE | 2018-05-15 15:08 | Progress Note ---
Assessment and Plan Assessment and plan: 53-year-old woman with history of hypertension, chronic diarrhea. She presented after syncopal episode. She passed out in the bathroom cleaning of chest pain that was constant dizziness, tingling in her extremities and generalized weakness. Patient states that she had diarrhea for over a year and has had endoscopy with Dr. Aviles. She has up to 8 episodes of diarrhea per day for the past year. She was hypotensive, required IV fluids and pressors Problems Syncope due to dehydration Transient autonomic imbalance Hypotension Severe hypokalemia and hypomagnesemia Type II MA Rhabdomyolysis Severe chronic diarrhea etoh abuse Alcohol withdrawal Plans Continue IV fluids will, wean off pressors Electrolytes have been repleted Conservative medical management, cardiology input appreciated Antidiarrheals GI appreciated Patient now admits to heavy alcohol consumption. She has been counseled on cessation, CIWA protocol started- History Interval history: Review of systems Constitutional: No fevers, no malaise, no joint pains CVS: No chest pain, no orthopnea, no dyspnea on exertion, no pedal edema GI: No abdominal pain, has chronic diarrhea- improved on lomotil, no vomiting, no constipation Respiratory: No shortness of breath, no wheezing, no coughing Hospitalist Physical - Physical exam Narrative exam: General.: Appears well, no distress, nontoxic HEENT: Moist mucous membranes, extraocular muscles intact, no lymphadenopathy Neck: supple Cardiac: S1-S2 heard Lungs: clear to auscultation bilaterally Abdomen: soft , nontender, nondistended, bowel sounds positive Extremities: no edema clubbing or cyanosis Skin: no rash or lesions Neurologic: no gross focal deficits Psych: calm, and cooperative - Constitutional Vitals: Temp Pulse Resp BP Pulse Ox 99.0 F 97 H 17 107/82 94 05/15/18 04:00 05/15/18 06:10 05/15/18 06:10 05/15/18 06:10 05/15/18 09:11 General appearance: Present: no acute distress Results - Labs CBC & Chem 7: 05/16/18 05:41 05/16/18 05:41 Labs: Laboratory Last Values WBC 4.1 K/mm3 (4.5-11.0) L 05/13/18 03:55 RBC 3.37 M/mm3 (3.65-5.03) L 05/13/18 03:55 Hgb 11.8 gm/dl (10.1-14.3) 05/13/18 03:55 Hct 35.5 % (30.3-42.9) 05/13/18 03:55 MCV 105 fl (79-97) H 05/13/18 03:55 MCH 35 pg (28-32) H 05/13/18 03:55 MCHC 33 % (30-34) 05/13/18 03:55 RDW 14.3 % (13.2-15.2) 05/13/18 03:55 Plt Count 157 K/mm3 (140-440) 05/13/18 03:55 Lymph % (Auto) 24.2 % (13.4-35.0) 05/13/18 03:55 [place] % (Auto) 5.3 % (0.0-7.3) 05/13/18 03:55 Eos % (Auto) 0.5 % (0.0-4.3) 05/13/18 03:55 Baso % (Auto) 0.4 % (0.0-1.8) 05/13/18 03:55 Lymph # 1.0 K/mm3 (1.2-5.4) L 05/13/18 03:55 [place] # 0.2 K/mm3 (0.0-0.8) 05/13/18 03:55 Eos # 0.0 K/mm3 (0.0-0.4) 05/13/18 03:55 Baso # 0.0 K/mm3 (0.0-0.1) 05/13/18 03:55 Seg Neutrophils % 69.6 % (40.0-70.0) 05/13/18 03:55 Seg Neutrophils # 2.9 K/mm3 (1.8-7.7) 05/13/18 03:55 PT 13.3 Sec. (12.2-14.9) 05/12/18 07:00 INR 0.97 (0.87-1.13) 05/12/18 07:00 D-Dimer 202.11 ng/mlDDU (0-234) 05/12/18 07:00 POC ABG pH 7.457 (7.35-7.45) H 05/13/18 14:52 POC ABG pCO2 58.5 (35-45) H 05/13/18 14:52 POC ABG pO2 53 (80-105) L 05/13/18 14:52 POC ABG HCO3 41.3 05/13/18 14:52 POC ABG Total CO2 43 05/13/18 14:52 POC ABG O2 Sat 87 05/13/18 14:52 POC ABG Base Excess 17 05/13/18 14:52 FiO2 21 % 05/13/18 14:52 Sodium 139 mmol/L (137-145) 05/15/18 04:10 Potassium 3.3 mmol/L (3.6-5.0) L 05/15/18 04:10 Chloride 94.2 mmol/L (98-107) L 05/15/18 04:10 Carbon Dioxide 36 mmol/L (22-30) H 05/15/18 04:10 Anion Gap 12 mmol/L 05/15/18 04:10 BUN 2 mg/dL (7-17) L 05/15/18 04:10 Creatinine 0.5 mg/dL (0.7-1.2) L 05/15/18 04:10 Estimated GFR > 60 ml/min 05/15/18 04:10 BUN/Creatinine Ratio 4 % 05/15/18 04:10 Glucose 127 mg/dL (65-100) H 05/15/18 04:10 POC Glucose 107 (70-105) H 05/15/18 05:30 Lactic Acid 3.40 mmol/L (0.7-2.0) H* 05/12/18 10:47 Calcium 6.9 mg/dL (8.4-10.2) L 05/15/18 04:10 Phosphorus 2.90 mg/dL (2.5-4.5) 05/12/18 07:00 Magnesium 2.40 mg/dL (1.7-2.3) H 05/13/18 03:55 Total Bilirubin 1.10 mg/dL (0.1-1.2) 05/12/18 07:00 Direct Bilirubin 0.6 mg/dL (0-0.2) H 05/12/18 07:00 Indirect Bilirubin 0.5 mg/dL 05/12/18 07:00 AST 112 units/L (5-40) H 05/12/18 07:00 ALT 65 units/L (7-56) H 05/12/18 07:00 Alkaline Phosphatase 69 units/L (35-129) 05/12/18 07:00 Ammonia 41.0 umol/L (25-60) 05/12/18 07:00 Total Creatine Kinase 2252 units/L (30-135) H 05/14/18 07:30 CK-MB (CK-2) 8.0 ng/mL (0.0-4.0) H 05/14/18 07:30 CK-MB (CK-2) Rel Index 0.3 (0-4) 05/14/18 07:30 Troponin T 0.189 ng/mL (0.00-0.029) H* D 05/14/18 07:30 NT-Pro-B Natriuret Pep 800.9 pg/mL (0-900) 05/12/18 07:00 Total Protein 5.7 g/dL (6.3-8.2) L 05/12/18 07:00 Albumin 2.7 g/dL (3.9-5) L 05/12/18 07:00 Albumin/Globulin Ratio 0.9 % 05/12/18 07:00 Triglycerides 118 mg/dL (2-149) 05/12/18 07:00 Cholesterol 102 mg/dL (50-199) 05/12/18 07:00 LDL Cholesterol Direct 44 mg/dL (50-130) L 05/12/18 07:00 HDL Cholesterol 46 mg/dL (40-59) 05/12/18 07:00 Cholesterol/HDL Ratio 2.21 % 05/12/18 07:00 TSH 3.310 mlU/mL (0.270-4.200) 05/12/18 09:47 Free T4 1.31 ng/dL (0.76-1.46) 05/12/18 09:47 Blood Type O POSITIVE 05/12/18 07:00 Antibody Screen Negative 05/12/18 07:00 Nutrition/Malnutrition Assess - Dietary Evaluation Nutrition/Malnutrition Findings: Nutrition Notes Start: 05/13/18 12:49 Freq: Status: Active Protocol: Document 05/13/18 12:49 ROLANDO (Rec: 05/13/18 14:14 ROLANDO [email or web address]) Co-Sign 05/13/18 12:49 LP Nutrition Notes Need for Assessment generated from: clinical systems educator Initial or Follow up Assessment Current Diagnosis Hypertension Hyperlipidemia Other Pertinent Diagnosis Neuropathy, Hx of chronic diarrhea, Hx of EtOh and tobacco use Current Diet GI soft Labs/Tests Na: 148 K: 2 Pertinent Medications Reviewed Height 5 ft 2 in Weight 52.3 kg Usual Body Weight 245 kg [place] Body Weight (lbs) 110.0 BMI 21.0 Intake Prior to Admission Poor Weight change and time frame Pt lost 130lbs during past year Weight Status Appropriate Subjective/Other Information Pt seen for MST screen. Pt was fatigued at time of visit. 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 Pt stated ONS is too expensive at home and that she never drank them when she had them anyways. Pt agreed to try ensure enlive while in hospital. Pt stated she lost 130lbs. over the past year but was unsure why she lost this much weight. Pt stated she vomitted an average of one time daily. Pt denied chewing or swallowing difficulties. Burn Absent Trauma Absent GI Symptoms Nausea Vomiting Diarrhea Current % PO Poor (25-49%) #1 Nutrition Diagnosis Inadequate oral intake Etiology Chronic diarrhea, N/V As Evidenced by Signs and Symptoms Pt report, weight loss of 47% of BW over 12 months, consumption of <50% of meals Diagnosis Progress(for reassessment Continues documentation) Is patient on ventilator? No Is Patient Ambulatory and/or Out of Bed No REE-([facility]confined [facility]) 1296.060 Calculation Used for Recommendations [facility] Additional Notes Pro: 1.2-2g/kg BW (67g-111g) Fluid: 1 ml/kcal Malnutrition Assessment Interpretation of weight loss (severe) > 20% in 1 year Nutrition Intervention Change Diet Order: Continue GI soft diet Add Supplement/Snack (indicate name/kcal Ensure Enlive daily /protein ) Provides kCal: 350 Provides Protein (gm) 20 Goal #1 Meet at least 80% of kcal and pro needs via PO and ONS intake Anticipated Discharge Needs: Unable to determine Follow-Up By: 05/16/18 Additional Comments F/U: PO and ONS intakes
[2018-05-15] MEDS: SODIUM CHLORIDE FLUSH SYRINGE 10 ML IV SCH ×2 (16:39→22:51)
[2018-05-15] MEDS: PROVENTIL IH PRN (22:25)
[2018-05-15] MEDS: NEURONTIN PO SCH (22:50)
[2018-05-16 05:54] LABS: Basophils % (Auto) 1.1 % (0.0-1.8); Eosinophils % (Auto) 1.2 % (0.0-4.3); Hematocrit 36.4 % (30.3-42.9); Hemoglobin 12.3 gm/dl (10.1-14.3); Lymphocytes # (Auto) 1.2 K/mm3 (1.2-5.4); Lymphocytes % (Auto) 31.7 % (13.4-35.0); Mean Corpuscular HGB Conc 34 % (30-34); Mean Corpuscular Volume 104 fl (79-97); Monocytes # (Auto) 0.2 K/mm3 (0.0-0.8); Monocytes % (Auto) 5.6 % (0.0-7.3); Platelet Count 158 K/mm3 (140-440); Red Cell Distribution Width 14.4 % (13.2-15.2)
[2018-05-16] MEDS: POTASSIUM CHLORIDE PO SCH ×3 (06:00→21:42)
[2018-05-16 06:12] LABS: Creatine Kinase MB 10.4 ng/mL (0.0-4.0)
[2018-05-16 06:15] LABS: BUN/Creatinine Ratio 4; Blood Urea Nitrogen 2 mg/dL (7-17); Calcium 7.3 mg/dL (8.4-10.2); Hemolysis Index 5
--- NOTE | 2018-05-16 07:49 | Discharge Summary ---
Providers - Providers Date of Admission: 05/12/18 09:25 Attending physician: TAY GOMEZ MD 05/12/18 Consult to Cardiac Rehabilitation [CONS] Routine Reason For Exam: Phase 1 05/12/18 10:09 Consult to Physician [CONS] Routine Comment: Consulting Provider: FAVIOLA ALVA Physician Instructions: Reason For Exam: Syncope, NSTEMI, chest pain 05/12/18 11:40 PICC Line Insertion [Consult to PICC Line RN] [CONS] Urgent Reason For Exam: iv POtassium and iv pressors Type Line:: PICC 05/12/18 13:29 Consult to Physician [CONS] Routine Comment: Consulting Provider: KEISHA MAX Physician Instructions: Reason For Exam: Hypotension 05/12/18 14:52 Consult to Physician [CONS] Routine Comment: Consulting Provider: NOLVIA ESTEVEZ Physician Instructions: Reason For Exam: Chronic diarrhea Primary care physician: SERAFIN ROSAS MD Hospitalization Condition: Stable Disposition: DC-30 STILL A PATIENT Exam - Constitutional Vitals: Temp Pulse Resp BP Pulse Ox 98.3 F 97 H 18 143/106 96 05/15/18 16:00 05/15/18 22:34 05/15/18 22:34 05/15/18 19:00 05/15/18 20:26 Plan Follow up with: SERAFIN ROSAS MD [Primary Care Provider] - 3-5 Days
[2018-05-16] MEDS: PROVENTIL IH PRN (07:56)
[2018-05-16] MEDS ORDERED: LEXISCAN IV ONE ×2 (10:17→10:18)
[2018-05-16] MEDS: XANAX PO SCH ×2 (10:40→21:41)
[2018-05-16] MEDS: NORCO 7.5/325 PO PRN ×2 (11:40→18:16)
[2018-05-16] MEDS: ASPIRIN PO SCH (11:40)
[2018-05-16] MEDS: SODIUM CHLORIDE FLUSH SYRINGE 10 ML IV SCH ×2 (11:41→21:43)
[2018-05-16] MEDS: LOVENOX SUB-Q SCH (11:46)
--- NOTE | 2018-05-16 13:10 | Progress Note ---
Assessment and Plan Hypotension Syncope Transient autonomic imbalance Severe hypokalemia hypomagnesemia Type II NSTEMI Rhabdomyolysis Severe chronic diarrhea - continue supplemental oxygen to keep sats > 90% - tentatively for stress testing in am - prn antidiarrheals - GI & VTE prophylaxis - GI evaluation ongoing - PT/OT as tolerated - replace potassium - continue other care per attending / other consultants ... re-evaluate in am & prn Subjective Date of service: 05/16/18 Principal diagnosis: Hypotension; Syncope ; Transient autonomic imbalance; Severe hypokalemia Interval history: Patient is seen today for: Hypotension; Syncope ; Transient autonomic imbalance; Severe hypokalemia Seen and examined at bedside; 24hour events reviewed; nursing and respiratory care staff consulted; no adverse overnight events reported to me; resting peacefully in bed; Objective Vital Signs - 12hr 05/16/18 05/16/18 05/16/18 07:56 08:06 08:28 Pulse Rate Pulse Rate [ 122 H 126 H Bilateral Throughout] Respiratory 18 18 Rate [Bilateral Throughout] Blood Pressure O2 Sat by Pulse 96 Oximetry 05/16/18 05/16/18 05/16/18 10:21 10:27 10:28 Pulse Rate 130 H 144 H 142 H Pulse Rate [ Bilateral Throughout] Respiratory Rate [Bilateral Throughout] Blood Pressure 143/99 142/108 143/103 O2 Sat by Pulse Oximetry 05/16/18 05/16/18 05/16/18 10:29 10:30 10:31 Pulse Rate 142 H 144 H 141 H Pulse Rate [ Bilateral Throughout] Respiratory Rate [Bilateral Throughout] Blood Pressure 142/107 142/99 126/90 O2 Sat by Pulse Oximetry 05/16/18 10:32 Pulse Rate 141 H Pulse Rate [ Bilateral Throughout] Respiratory Rate [Bilateral Throughout] Blood Pressure 124/92 O2 Sat by Pulse Oximetry Constitutional: no acute distress, alert, other (middle aged AAF, norocephalic and atraumatic with normal respiratory effort at rest) ENT: oropharynx moist Neck: supple, no lymphadenopathy, no JVD Effort: normal Ascultation: Bilateral: clear Percussion: Bilateral: not dull Cardiovascular: regular rate and rhythm Gastrointestinal: normoactive bowel sounds, soft, non-tender, non-distended Integumentary: normal Extremities: no cyanosis, no edema, pulses normal, no ischemia or petechiae Neurologic: normal mental status, non-focal exam, pupils equal and round, CN II- XII normal Psychiatric: mood appropriate, affect normal CBC and BMP: 05/16/18 05:41 05/16/18 05:41 ABG, PT/INR, D-dimer: ABG POC ABG pH 7.457 (7.35-7.45) H 05/13/18 14:52 POC ABG pCO2 58.5 (35-45) H 05/13/18 14:52 POC ABG pO2 53 (80-105) L 05/13/18 14:52 POC ABG HCO3 41.3 05/13/18 14:52 POC ABG Total CO2 43 05/13/18 14:52 POC ABG O2 Sat 87 05/13/18 14:52 PT/INR, D-dimer PT 13.3 Sec. (12.2-14.9) 05/12/18 07:00 INR 0.97 (0.87-1.13) 05/12/18 07:00 D-Dimer 202.11 ng/mlDDU (0-234) 05/12/18 07:00 Abnormal lab findings: Abnormal Labs 05/12/18 05/12/18 05/12/18 06:39 07:00 07:00 WBC 4.1 L RBC MCV 102 H MCH 36 H MCHC 35 H Lymph % (Auto) 50.0 H Lymph # POC ABG pH POC ABG pCO2 POC ABG pO2 Sodium 134 L Potassium 1.5 L* Chloride 69.4 L Carbon Dioxide 52 H* BUN 5 L Creatinine 0.5 L Glucose 102 H POC Glucose 110 H Lactic Acid Calcium 8.1 L Magnesium Direct Bilirubin 0.6 H AST 112 H ALT 65 H Total Creatine Kinase 2654 H CK-MB (CK-2) 11.5 H Troponin T 0.144 H* Total Protein 5.7 L Albumin 2.7 L LDL Cholesterol Direct 44 L 05/12/18 05/12/18 05/12/18 07:00 08:09 09:20 WBC RBC MCV MCH MCHC Lymph % (Auto) Lymph # POC ABG pH POC ABG pCO2 POC ABG pO2 Sodium Potassium Chloride Carbon Dioxide BUN Creatinine Glucose POC Glucose Lactic Acid 4.00 H* 3.50 H* 4.30 H* Calcium Magnesium Direct Bilirubin AST ALT Total Creatine Kinase CK-MB (CK-2) Troponin T Total Protein Albumin LDL Cholesterol Direct 05/12/18 05/12/18 05/12/18 09:47 10:03 10:47 WBC RBC MCV MCH MCHC Lymph % (Auto) Lymph # POC ABG pH POC ABG pCO2 POC ABG pO2 Sodium 134 L Potassium 1.6 L* Chloride 75.5 L Carbon Dioxide 47 H* BUN 4 L Creatinine 0.6 L Glucose 130 H POC Glucose Lactic Acid 4.60 H* Calcium 7.3 L Magnesium Direct Bilirubin AST ALT Total Creatine Kinase 2530 H CK-MB (CK-2) 11.6 H Troponin T 0.114 H* D Total Protein Albumin LDL Cholesterol Direct 05/12/18 05/12/18 05/12/18 10:47 14:34 16:07 WBC RBC MCV MCH MCHC Lymph % (Auto) Lymph # POC ABG pH POC ABG pCO2 POC ABG pO2 Sodium Potassium 2.0 L* D Chloride 83.4 L Carbon Dioxide 49 H* BUN 4 L Creatinine 0.5 L Glucose 134 H POC Glucose Lactic Acid 3.40 H* Calcium 6.9 L Magnesium Direct Bilirubin AST ALT Total Creatine Kinase 2389 H CK-MB (CK-2) 9.9 H Troponin T 0.094 H Total Protein Albumin LDL Cholesterol Direct 05/12/18 05/12/18 05/12/18 21:10 22:09 22:44 WBC RBC MCV MCH MCHC Lymph % (Auto) Lymph # POC ABG pH POC ABG pCO2 POC ABG pO2 Sodium 146 H D Potassium 2.1 L* Chloride 89.8 L Carbon Dioxide 47 H* BUN 4 L Creatinine 0.6 L Glucose 145 H POC Glucose 144 H Lactic Acid Calcium 6.9 L Magnesium Direct Bilirubin AST ALT Total Creatine Kinase 1967 H CK-MB (CK-2) 7.1 H Troponin T 0.099 H Total Protein Albumin LDL Cholesterol Direct 05/13/18 05/13/18 05/13/18 03:55 03:55 06:09 WBC 4.1 L RBC 3.37 L MCV 105 H MCH 35 H MCHC Lymph % (Auto) Lymph # 1.0 L POC ABG pH POC ABG pCO2 POC ABG pO2 Sodium 148 H Potassium 2.0 L* Chloride 95.0 L Carbon Dioxide 48 H* BUN 3 L Creatinine 0.5 L Glucose 151 H POC Glucose 131 H Lactic Acid Calcium 6.7 L Magnesium 2.40 H Direct Bilirubin AST ALT Total Creatine Kinase CK-MB (CK-2) Troponin T Total Protein Albumin LDL Cholesterol Direct 05/13/18 05/13/18 05/13/18 09:59 14:48 14:52 WBC RBC MCV MCH MCHC Lymph % (Auto) Lymph # POC ABG pH 7.457 H POC ABG pCO2 58.5 H POC ABG pO2 53 L Sodium 147 H Potassium 2.9 L* D Chloride 97.2 L Carbon Dioxide 40 H D BUN 3 L Creatinine 0.6 L Glucose 118 H POC Glucose 205 H Lactic Acid Calcium 6.8 L Magnesium Direct Bilirubin AST ALT Total Creatine Kinase CK-MB (CK-2) Troponin T Total Protein Albumin LDL Cholesterol Direct 05/13/18 05/13/18 05/14/18 15:29 22:09 02:00 WBC RBC MCV MCH MCHC Lymph % (Auto) Lymph # POC ABG pH POC ABG pCO2 POC ABG pO2 Sodium Potassium 3.2 L Chloride 96.5 L Carbon Dioxide 39 H BUN 2 L Creatinine 0.5 L Glucose 102 H POC Glucose 110 H 117 H Lactic Acid Calcium 6.8 L Magnesium Direct Bilirubin AST ALT Total Creatine Kinase CK-MB (CK-2) Troponin T Total Protein Albumin LDL Cholesterol Direct 05/14/18 05/14/18 05/14/18 07:30 07:30 11:24 WBC RBC MCV MCH MCHC Lymph % (Auto) Lymph # POC ABG pH POC ABG pCO2 POC ABG pO2 Sodium Potassium Chloride 95.9 L Carbon Dioxide 37 H BUN 2 L Creatinine 0.5 L Glucose POC Glucose 137 H Lactic Acid Calcium 6.5 L Magnesium Direct Bilirubin AST ALT Total Creatine Kinase 2252 H CK-MB (CK-2) 8.0 H Troponin T 0.189 H* D Total Protein Albumin LDL Cholesterol Direct 05/14/18 05/14/18 05/15/18 17:44 21:29 04:10 WBC RBC MCV MCH MCHC Lymph % (Auto) Lymph # POC ABG pH POC ABG pCO2 POC ABG pO2 Sodium Potassium 2.9 L* D 3.3 L Chloride 90.5 L 94.2 L Carbon Dioxide 34 H 36 H BUN 2 L 2 L Creatinine 0.5 L 0.5 L Glucose 127 H POC Glucose 117 H Lactic Acid Calcium 6.7 L 6.9 L Magnesium Direct Bilirubin AST ALT Total Creatine Kinase CK-MB (CK-2) Troponin T Total Protein Albumin LDL Cholesterol Direct 05/15/18 05/16/18 05/16/18 05:30 00:51 05:41 WBC RBC MCV MCH MCHC Lymph % (Auto) Lymph # POC ABG pH POC ABG pCO2 POC ABG pO2 Sodium Potassium Chloride Carbon Dioxide 34 H BUN 2 L Creatinine 0.5 L Glucose POC Glucose 107 H 112 H Lactic Acid Calcium 7.3 L Magnesium Direct Bilirubin AST ALT Total Creatine Kinase 3656 H CK-MB (CK-2) 10.4 H Troponin T 0.129 H* D Total Protein Albumin LDL Cholesterol Direct 05/16/18 05/16/18 05:41 11:44 WBC 3.8 L RBC 3.50 L MCV 104 H MCH 35 H MCHC Lymph % (Auto) Lymph # POC ABG pH POC ABG pCO2 POC ABG pO2 Sodium Potassium Chloride Carbon Dioxide BUN Creatinine Glucose POC Glucose 106 H Lactic Acid Calcium Magnesium Direct Bilirubin AST ALT Total Creatine Kinase CK-MB (CK-2) Troponin T Total Protein Albumin LDL Cholesterol Direct Allied health notes reviewed: nursing
--- NOTE | 2018-05-16 13:42 | Progress Note ---
Assessment and Plan Syncope secondary to metabolic Sepsis Hypotension Severe hypokalemia and hypomagnesemia nstemi type 2 Rhabdomyolysis Diarrhea rec: s/p lexiscan MPI stress test this AM which showed small fixed apical defect, no sig ischemia. Currently stable cardiac status. Pt may discharge home from cardiology standpoint. Recommend pt follow up in our office with Dr. Hughes within 1-2 weeks of hospital discharge ([phone]). The patient has been seen in conjunction with Dr. Hughes who agrees with the assessment and plan of care. Subjective Date of service: 05/16/18 Principal diagnosis: Hypotension; Syncope ; Transient autonomic imbalance; Severe hypokalemia Interval history: for stress test Objective Last Vital Signs Temp 98.3 F 05/15/18 16:00 Pulse 141 H 05/16/18 10:32 Resp 18 05/16/18 08:06 BP 124/92 05/16/18 10:32 Pulse Ox 96 05/16/18 08:28 - Physical Examination General: No Apparent Distress HEENT: Positive: PERRL, EOMI Neck: Positive: neck supple Cardiac: Positive: Reg Rate and Rhythm, S1/S2 Lungs: Positive: clear to auscultation Neuro: Positive: Grossly Intact Abdomen: Positive: Soft Extremities: Present: normal. Absent: edema - Labs and Meds Cardiac Enzymes 05/16/18 Range/Units 05:41 CK-MB (CK-2) 10.4 H (0.0-4.0) ng/mL CBC 05/16/18 Range/Units 05:41 WBC 3.8 L (4.5-11.0) K/mm3 RBC 3.50 L (3.65-5.03) M/mm3 Hgb 12.3 (10.1-14.3) gm/dl Hct 36.4 (30.3-42.9) % Plt Count 158 (140-440) K/mm3 Lymph # 1.2 (1.2-5.4) K/mm3 [place] # 0.2 (0.0-0.8) K/mm3 Eos # 0.0 (0.0-0.4) K/mm3 Baso # 0.0 (0.0-0.1) K/mm3 Comprehensive Metabolic Panel 05/16/18 Range/Units 05:41 Sodium 143 (137-145) mmol/L Potassium 3.9 (3.6-5.0) mmol/L Chloride 99.4 (98-107) mmol/L Carbon Dioxide 34 H (22-30) mmol/L BUN 2 L (7-17) mg/dL Creatinine 0.5 L (0.7-1.2) mg/dL Glucose 99 (65-100) mg/dL Calcium 7.3 L (8.4-10.2) mg/dL - Imaging and Cardiology Echo: report reviewed (normal lv function ef 55-60% ) - Allied health notes Allied health notes reviewed: nursing
[2018-05-16] MEDS: LIBRIUM PO SCH ×2 (15:44→23:27)
--- NOTE | 2018-05-16 16:04 | Treadmill Report ---
NUCLEAR PERFUSION STUDY REASON FOR STUDY: For abnormal troponins. IMAGING PROTOCOL: Single isotope used. The patient received 10 mCi of Technetium 99m Tetrofosmin for resting image and 28 mCi of Technetium 99m Tetrofosmin for stress imaging. The imaging for the whole procedure was completed 30-90 minutes following the initial injection of Technetium 99m Tetrofosmin. The SPECT imaging in the 180 degree arc was performed in the right anterior oblique projection. Computerized reconstruction of the images was performed for analysis. IMAGING RESULTS: Normal cavity size from stress to rest. Normal distribution of radionuclide in the anterior, inferior, septal, lateral, and apical, but there is a small mild fixed defect in the apical septal region with gated SPECT, EF 38%, [id number] global hypokinesis. The patient infused Lexiscan with no EKG changes. SUMMARY: 1. Negative Lexiscan EKG. 2. No significant myocardial ischemia noted, but a small mild fixed apical septal defect with normal perfusion in the anterior, inferior, septal, lateral regions with gated SPECT, EF 38%_ We suggest an echocardiogram for quantification of LV function. JOB# [id number] HARRIET/CLEM MCLAUGHLIN
[2018-05-16] MEDS ORDERED: LASIX PO ONE (17:37)
--- NOTE | 2018-05-16 17:42 | Progress Note ---
Assessment and Plan Assessment and plan: 53-year-old woman with history of hypertension, chronic diarrhea. She presented after syncopal episode. She passed out in the bathroom cleaning of chest pain that was constant dizziness, tingling in her extremities and generalized weakness. Patient states that she had diarrhea for over a year and has had endoscopy with Dr. Aviles. She has up to 8 episodes of diarrhea per day for the past year. She was hypotensive, required IV fluids and pressors Problems Syncope due to dehydration Transient autonomic imbalance Hypotension Severe hypokalemia and hypomagnesemia Type II CT Rhabdomyolysis Severe chronic diarrhea etoh abuse Alcohol withdrawal -Acute hypoxic respiratory failure Plans Continue IV fluids will, wean off pressors Electrolytes have been repleted Conservative medical management, cardiology input appreciated Antidiarrheals GI appreciated Patient now admits to heavy alcohol consumption. She has been counseled on cessation, CIWA protocol started -Suspect fluid overload, obtain chest x-ray, treated oxygen supplements, obtain pulmonary function tests, give lasix echo shows preserved EF, stress test shows small defect, no further workup per cardiology DVT prophylaxis chemical History Interval history: Review of systems Constitutional: No fevers, no malaise, no joint pains CVS: No chest pain, complaining of orthopnea, no dyspnea on exertion, no pedal edema GI: No abdominal pain, has chronic diarrhea- improved on lomotil, no vomiting, no constipation Respiratory: She is complaining of shortness of breath Hospitalist Physical - Physical exam Narrative exam: General.: Mild distress, nontoxic HEENT: Moist mucous membranes, extraocular muscles intact, no lymphadenopathy Neck: supple Cardiac: S1-S2 heard Lungs: Mild basilar crackles Abdomen: soft , nontender, nondistended, bowel sounds positive Extremities: no edema clubbing or cyanosis Skin: no rash or lesions Neurologic: no gross focal deficits Psych: calm, and cooperative - Constitutional Vitals: Temp Pulse Resp BP Pulse Ox 99.1 F 137 H 24 134/103 96 05/16/18 11:41 05/16/18 11:41 05/16/18 11:41 05/16/18 11:41 05/16/18 11:41 General appearance: Present: no acute distress Results - Labs CBC & Chem 7: 05/16/18 05:41 05/16/18 05:41 Labs: Laboratory Last Values WBC 3.8 K/mm3 (4.5-11.0) L 05/16/18 05:41 RBC 3.50 M/mm3 (3.65-5.03) L 05/16/18 05:41 Hgb 12.3 gm/dl (10.1-14.3) 05/16/18 05:41 Hct 36.4 % (30.3-42.9) 05/16/18 05:41 MCV 104 fl (79-97) H 05/16/18 05:41 MCH 35 pg (28-32) H 05/16/18 05:41 MCHC 34 % (30-34) 05/16/18 05:41 RDW 14.4 % (13.2-15.2) 05/16/18 05:41 Plt Count 158 K/mm3 (140-440) 05/16/18 05:41 Lymph % (Auto) 31.7 % (13.4-35.0) 05/16/18 05:41 [place] % (Auto) 5.6 % (0.0-7.3) 05/16/18 05:41 Eos % (Auto) 1.2 % (0.0-4.3) 05/16/18 05:41 Baso % (Auto) 1.1 % (0.0-1.8) 05/16/18 05:41 Lymph # 1.2 K/mm3 (1.2-5.4) 05/16/18 05:41 [place] # 0.2 K/mm3 (0.0-0.8) 05/16/18 05:41 Eos # 0.0 K/mm3 (0.0-0.4) 05/16/18 05:41 Baso # 0.0 K/mm3 (0.0-0.1) 05/16/18 05:41 Seg Neutrophils % 60.4 % (40.0-70.0) 05/16/18 05:41 Seg Neutrophils # 2.3 K/mm3 (1.8-7.7) 05/16/18 05:41 PT 13.3 Sec. (12.2-14.9) 05/12/18 07:00 INR 0.97 (0.87-1.13) 05/12/18 07:00 D-Dimer 202.11 ng/mlDDU (0-234) 05/12/18 07:00 POC ABG pH 7.457 (7.35-7.45) H 05/13/18 14:52 POC ABG pCO2 58.5 (35-45) H 05/13/18 14:52 POC ABG pO2 53 (80-105) L 05/13/18 14:52 POC ABG HCO3 41.3 05/13/18 14:52 POC ABG Total CO2 43 05/13/18 14:52 POC ABG O2 Sat 87 05/13/18 14:52 POC ABG Base Excess 17 05/13/18 14:52 FiO2 21 % 05/13/18 14:52 Sodium 143 mmol/L (137-145) 05/16/18 05:41 Potassium 3.9 mmol/L (3.6-5.0) 05/16/18 05:41 Chloride 99.4 mmol/L (98-107) 05/16/18 05:41 Carbon Dioxide 34 mmol/L (22-30) H 05/16/18 05:41 Anion Gap 14 mmol/L 05/16/18 05:41 BUN 2 mg/dL (7-17) L 05/16/18 05:41 Creatinine 0.5 mg/dL (0.7-1.2) L 05/16/18 05:41 Estimated GFR > 60 ml/min 05/16/18 05:41 BUN/Creatinine Ratio 4 % 05/16/18 05:41 Glucose 99 mg/dL (65-100) 05/16/18 05:41 POC Glucose 113 (70-105) H 05/16/18 16:29 Lactic Acid 3.40 mmol/L (0.7-2.0) H* 05/12/18 10:47 Calcium 7.3 mg/dL (8.4-10.2) L 05/16/18 05:41 Phosphorus 2.90 mg/dL (2.5-4.5) 05/12/18 07:00 Magnesium 2.40 mg/dL (1.7-2.3) H 05/13/18 03:55 Total Bilirubin 1.10 mg/dL (0.1-1.2) 05/12/18 07:00 Direct Bilirubin 0.6 mg/dL (0-0.2) H 05/12/18 07:00 Indirect Bilirubin 0.5 mg/dL 05/12/18 07:00 AST 112 units/L (5-40) H 05/12/18 07:00 ALT 65 units/L (7-56) H 05/12/18 07:00 Alkaline Phosphatase 69 units/L (35-129) 05/12/18 07:00 Ammonia 41.0 umol/L (25-60) 05/12/18 07:00 Total Creatine Kinase 3656 units/L (30-135) H 05/16/18 05:41 CK-MB (CK-2) 10.4 ng/mL (0.0-4.0) H 05/16/18 05:41 CK-MB (CK-2) Rel Index 0.2 (0-4) 05/16/18 05:41 Troponin T 0.129 ng/mL (0.00-0.029) H* D 05/16/18 05:41 NT-Pro-B Natriuret Pep 800.9 pg/mL (0-900) 05/12/18 07:00 Total Protein 5.7 g/dL (6.3-8.2) L 05/12/18 07:00 Albumin 2.7 g/dL (3.9-5) L 05/12/18 07:00 Albumin/Globulin Ratio 0.9 % 05/12/18 07:00 Triglycerides 118 mg/dL (2-149) 05/12/18 07:00 Cholesterol 102 mg/dL (50-199) 05/12/18 07:00 LDL Cholesterol Direct 44 mg/dL (50-130) L 05/12/18 07:00 HDL Cholesterol 46 mg/dL (40-59) 05/12/18 07:00 Cholesterol/HDL Ratio 2.21 % 05/12/18 07:00 TSH 3.310 mlU/mL (0.270-4.200) 05/12/18 09:47 Free T4 1.31 ng/dL (0.76-1.46) 05/12/18 09:47 Blood Type O POSITIVE 05/12/18 07:00 Antibody Screen Negative 05/12/18 07:00 Nutrition/Malnutrition Assess - Dietary Evaluation Nutrition/Malnutrition Findings: Nutrition Notes Start: 05/13/18 12:49 Freq: Status: Active Protocol: Document 05/16/18 13:50 LM (Rec: 05/16/18 13:58 LM [id number]) Co-Sign 05/16/18 13:50 LP Nutrition Notes Initial or Follow up Brief Note Current Diagnosis Hypertension Hyperlipidemia Other Pertinent Diagnosis Neuropathy, Hx of chronic diarrhea, Hx of EtOh and tobacco use Current Diet GI soft Subjective/Other Information Pt not in room of time of visit. Room appeared to be [place] out. Nutrition Intervention Follow-Up By: 05/19/18 Additional Comments F/U for PO/ONS intakes
[2018-05-16] MEDS: XOPENEX IH PRN (18:52)
[2018-05-16] MEDS: NEURONTIN PO SCH (21:41)
[2018-05-17] MEDS: XOPENEX IH PRN (05:20)
[2018-05-17] MEDS: NORCO 7.5/325 PO PRN ×3 (05:23→20:34)
[2018-05-17] MEDS: POTASSIUM CHLORIDE PO SCH ×2 (05:25→14:58)
[2018-05-17 07:03] LABS: BUN/Creatinine Ratio 5; Blood Urea Nitrogen 3 mg/dL (7-17); Calcium 8.3 mg/dL (8.4-10.2); Hemolysis Index 29
--- NOTE | 2018-05-17 07:19 | XRay Report ---
FINAL REPORT PROCEDURE: XR CHEST 1V AP TECHNIQUE: Chest radiograph anteroposterior view. CPT 49213 HISTORY: hypoxia COMPARISON: 05/12/2018 FINDINGS: Heart: Normal. Mediastinum/Vessels: Normal. Lungs/Pleural space: There are bibasilar infiltrates and effusions not present on the prior study.. Bony thorax: No acute osseous abnormality. Life support devices: None. IMPRESSION: The heart size is normal.. There are bibasilar infiltrates and effusions not present on the prior study..
[2018-05-17] MEDS: SODIUM CHLORIDE FLUSH SYRINGE 10 ML IV SCH ×2 (10:32→22:01)
[2018-05-17] MEDS: XANAX PO SCH ×2 (10:32→21:59)
[2018-05-17] MEDS: ASPIRIN PO SCH (10:32)
[2018-05-17] MEDS: LIBRIUM PO SCH ×2 (10:34→16:39)
--- NOTE | 2018-05-17 11:34 | Progress Note ---
Assessment and Plan Assessment and plan: 53-year-old woman with history of hypertension, chronic diarrhea. She presented after syncopal episode. She passed out in the bathroom cleaning of chest pain that was constant dizziness, tingling in her extremities and generalized weakness. Patient states that she had diarrhea for over a year and has had endoscopy with Dr. Aviles. She has up to 8 episodes of diarrhea per day for the past year. She was hypotensive, required IV fluids and pressors Problems Syncope due to dehydration Transient autonomic imbalance Hypotension Severe hypokalemia and hypomagnesemia Type II [place] Rhabdomyolysis Severe chronic diarrhea etoh abuse Alcohol withdrawal -Acute hypoxic respiratory failure -acute diastolic CHF Plans received IVF and pressors now fluid overloaded, bibasilar congestion and effusions seen on cxr -Lasix IV Electrolytes have been repleted Conservative medical management, cardiology input appreciated Antidiarrheals GI appreciated Patient now admits to heavy alcohol consumption. She has been counseled on cessation, CIWA protocol started echo shows preserved EF, stress test shows small defect, no further workup per cardiology DVT prophylaxis chemical History Interval history: Review of systems Constitutional: No fevers, no malaise, no joint pains CVS: No chest pain, complaining of orthopnea, no dyspnea on exertion, no pedal edema GI: No abdominal pain, has chronic diarrhea- improved on lomotil, no vomiting, no constipation Respiratory: She is complaining of shortness of breath Hospitalist Physical - Physical exam Narrative exam: General.: Mild distress, nontoxic HEENT: Moist mucous membranes, extraocular muscles intact, no lymphadenopathy Neck: supple Cardiac: S1-S2 heard Lungs: Mild basilar crackles Abdomen: soft , nontender, nondistended, bowel sounds positive Extremities: no edema clubbing or cyanosis Skin: no rash or lesions Neurologic: no gross focal deficits Psych: calm, and cooperative - Constitutional Vitals: Temp Pulse Resp BP Pulse Ox 98.1 F 116 H 18 113/88 92 05/17/18 06:17 05/17/18 10:00 05/17/18 06:23 05/17/18 06:17 05/17/18 06:17 General appearance: Present: no acute distress Results - Labs CBC & Chem 7: 05/16/18 05:41 05/17/18 05:43 Labs: Laboratory Last Values WBC 3.8 K/mm3 (4.5-11.0) L 05/16/18 05:41 RBC 3.50 M/mm3 (3.65-5.03) L 05/16/18 05:41 Hgb 12.3 gm/dl (10.1-14.3) 05/16/18 05:41 Hct 36.4 % (30.3-42.9) 05/16/18 05:41 MCV 104 fl (79-97) H 05/16/18 05:41 MCH 35 pg (28-32) H 05/16/18 05:41 MCHC 34 % (30-34) 05/16/18 05:41 RDW 14.4 % (13.2-15.2) 05/16/18 05:41 Plt Count 158 K/mm3 (140-440) 05/16/18 05:41 Lymph % (Auto) 31.7 % (13.4-35.0) 05/16/18 05:41 [place] % (Auto) 5.6 % (0.0-7.3) 05/16/18 05:41 Eos % (Auto) 1.2 % (0.0-4.3) 05/16/18 05:41 Baso % (Auto) 1.1 % (0.0-1.8) 05/16/18 05:41 Lymph # 1.2 K/mm3 (1.2-5.4) 05/16/18 05:41 [place] # 0.2 K/mm3 (0.0-0.8) 05/16/18 05:41 Eos # 0.0 K/mm3 (0.0-0.4) 05/16/18 05:41 Baso # 0.0 K/mm3 (0.0-0.1) 05/16/18 05:41 Seg Neutrophils % 60.4 % (40.0-70.0) 05/16/18 05:41 Seg Neutrophils # 2.3 K/mm3 (1.8-7.7) 05/16/18 05:41 PT 13.3 Sec. (12.2-14.9) 05/12/18 07:00 INR 0.97 (0.87-1.13) 05/12/18 07:00 D-Dimer 202.11 ng/mlDDU (0-234) 05/12/18 07:00 POC ABG pH 7.457 (7.35-7.45) H 05/13/18 14:52 POC ABG pCO2 58.5 (35-45) H 05/13/18 14:52 POC ABG pO2 53 (80-105) L 05/13/18 14:52 POC ABG HCO3 41.3 05/13/18 14:52 POC ABG Total CO2 43 05/13/18 14:52 POC ABG O2 Sat 87 05/13/18 14:52 POC ABG Base Excess 17 05/13/18 14:52 FiO2 21 % 05/13/18 14:52 Sodium 140 mmol/L (137-145) 05/17/18 05:43 Potassium 5.0 mmol/L (3.6-5.0) D 05/17/18 05:43 Chloride 97.8 mmol/L (98-107) L 05/17/18 05:43 Carbon Dioxide 29 mmol/L (22-30) 05/17/18 05:43 Anion Gap 18 mmol/L 05/17/18 05:43 BUN 3 mg/dL (7-17) L 05/17/18 05:43 Creatinine 0.6 mg/dL (0.7-1.2) L 05/17/18 05:43 Estimated GFR > 60 ml/min 05/17/18 05:43 BUN/Creatinine Ratio 5 % 05/17/18 05:43 Glucose 98 mg/dL (65-100) 05/17/18 05:43 POC Glucose 86 (70-105) 05/17/18 07:40 Lactic Acid 3.40 mmol/L (0.7-2.0) H* 05/12/18 10:47 Calcium 8.3 mg/dL (8.4-10.2) L 05/17/18 05:43 Phosphorus 2.90 mg/dL (2.5-4.5) 05/12/18 07:00 Magnesium 2.40 mg/dL (1.7-2.3) H 05/13/18 03:55 Total Bilirubin 1.10 mg/dL (0.1-1.2) 05/12/18 07:00 Direct Bilirubin 0.6 mg/dL (0-0.2) H 05/12/18 07:00 Indirect Bilirubin 0.5 mg/dL 05/12/18 07:00 AST 112 units/L (5-40) H 05/12/18 07:00 ALT 65 units/L (7-56) H 05/12/18 07:00 Alkaline Phosphatase 69 units/L (35-129) 05/12/18 07:00 Ammonia 41.0 umol/L (25-60) 05/12/18 07:00 Total Creatine Kinase 3656 units/L (30-135) H 05/16/18 05:41 CK-MB (CK-2) 10.4 ng/mL (0.0-4.0) H 05/16/18 05:41 CK-MB (CK-2) Rel Index 0.2 (0-4) 05/16/18 05:41 Troponin T 0.129 ng/mL (0.00-0.029) H* D 05/16/18 05:41 NT-Pro-B Natriuret Pep 800.9 pg/mL (0-900) 05/12/18 07:00 Total Protein 5.7 g/dL (6.3-8.2) L 05/12/18 07:00 Albumin 2.7 g/dL (3.9-5) L 05/12/18 07:00 Albumin/Globulin Ratio 0.9 % 05/12/18 07:00 Triglycerides 118 mg/dL (2-149) 05/12/18 07:00 Cholesterol 102 mg/dL (50-199) 05/12/18 07:00 LDL Cholesterol Direct 44 mg/dL (50-130) L 05/12/18 07:00 HDL Cholesterol 46 mg/dL (40-59) 05/12/18 07:00 Cholesterol/HDL Ratio 2.21 % 05/12/18 07:00 TSH 3.310 mlU/mL (0.270-4.200) 05/12/18 09:47 Free T4 1.31 ng/dL (0.76-1.46) 05/12/18 09:47 Blood Type O POSITIVE 05/12/18 07:00 Antibody Screen Negative 05/12/18 07:00 Nutrition/Malnutrition Assess - Dietary Evaluation Nutrition/Malnutrition Findings: Nutrition Notes Start: 05/13/18 12:49 Freq: Status: Active Protocol: Document 05/16/18 13:50 LM (Rec: 05/16/18 13:58 LM [id number]) Co-Sign 05/16/18 13:50 LP Nutrition Notes Initial or Follow up Brief Note Current Diagnosis Hypertension Hyperlipidemia Other Pertinent Diagnosis Neuropathy, Hx of chronic diarrhea, Hx of EtOh and tobacco use Current Diet GI soft Subjective/Other Information Pt not in room of time of visit. Room appeared to be [place] out. Nutrition Intervention Follow-Up By: 05/19/18 Additional Comments F/U for PO/ONS intakes
[2018-05-17] MEDS: LASIX IV SCH (13:32)
[2018-05-17] MEDS ORDERED: ATROVENT IH PRN (16:28)
[2018-05-17] MEDS ORDERED: CHLORASEPTIC MM PRN (16:28)
[2018-05-17] MEDS ORDERED: CEPACOL X STRENGTH MM PRN (16:28)
[2018-05-17] MEDS: LOPRESSOR PO SCH ×2 (16:39→21:57)
[2018-05-17] MEDS: NEURONTIN PO SCH (22:00)
--- NOTE | 2018-05-17 23:49 | Progress Note ---
Assessment and Plan Patient sleeping at this time. On 2 litres O2. O2 saturation 98%.No acute respiratory distress. - Patient Problems (1) Elevated troponin Current Visit: Yes Status: Acute Plan to address problem: Management as per cardiology. (2) Hypotension Current Visit: Yes Status: Acute Qualifiers: Hypotension type: other hypotension type Qualified Code(s): I95.89 - Other hypotension Plan to address problem: Blood pressure improved. Blood pressure 115/79. (3) Syncope Current Visit: Yes Status: Acute Qualifiers: Syncope type: unspecified Qualified Code(s): R55 - Syncope and collapse Plan to address problem: Management as per primary care and neurology. (4) Bilateral pleural effusion Current Visit: Yes Status: Acute Plan to address problem: Obtaining ultrasound of chest to quantitate pleural effusions. (5) Pulmonary infiltrates on CXR Current Visit: Yes Status: Acute Plan to address problem: Bibasilar pulmonary infiltrates Atelectasis vs Pneumonia. Patient afebrile, No leukocytosis. Albuterol/atrovent aerosol treatments to improve mucociliary clearence. Subjective Date of service: 05/17/18 Principal diagnosis: Hypotension; Syncope ; Transient autonomic imbalance; Severe hypokalemia Interval history: Patient sleeping at this time. On 2 litres O2. O2 saturation 98%.No acute respiratory distress. Objective Vital Signs - 12hr 05/17/18 05/17/18 05/17/18 11:51 13:35 16:39 Temperature 98.3 F Pulse Rate 117 H 108 H 104 H Respiratory 18 Rate Blood Pressure 126/101 110/87 Blood Pressure 110/85 [Right] O2 Sat by Pulse 97 Oximetry 05/17/18 05/17/18 05/17/18 17:57 20:36 21:57 Temperature 98.4 F Pulse Rate 108 H 91 H Respiratory 18 Rate Blood Pressure 119/96 104/81 Blood Pressure [Right] O2 Sat by Pulse 98 95 Oximetry Constitutional: no acute distress, asleep, other (middle aged AAF, norocephalic and atraumatic with normal respiratory effort at rest) ENT: oropharynx moist Neck: supple, no lymphadenopathy, no JVD Effort: normal Ascultation: Bilateral: clear Percussion: Bilateral: not dull Cardiovascular: regular rate and rhythm Gastrointestinal: normoactive bowel sounds, soft, non-tender, non-distended Integumentary: normal Extremities: no cyanosis, no edema, pulses normal, no ischemia or petechiae Neurologic: normal mental status, non-focal exam, pupils equal and round, CN II- XII normal Psychiatric: mood appropriate, affect normal CBC and BMP: 05/16/18 05:41 05/18/18 05:10 ABG, PT/INR, D-dimer: ABG POC ABG pH 7.457 (7.35-7.45) H 05/13/18 14:52 POC ABG pCO2 58.5 (35-45) H 05/13/18 14:52 POC ABG pO2 53 (80-105) L 05/13/18 14:52 POC ABG HCO3 41.3 05/13/18 14:52 POC ABG Total CO2 43 05/13/18 14:52 POC ABG O2 Sat 87 05/13/18 14:52 PT/INR, D-dimer PT 13.3 Sec. (12.2-14.9) 05/12/18 07:00 INR 0.97 (0.87-1.13) 05/12/18 07:00 D-Dimer 202.11 ng/mlDDU (0-234) 05/12/18 07:00 Abnormal lab findings: Abnormal Labs 05/12/18 05/12/18 05/12/18 06:39 07:00 07:00 WBC 4.1 L RBC MCV 102 H MCH 36 H MCHC 35 H Lymph % (Auto) 50.0 H Lymph # POC ABG pH POC ABG pCO2 POC ABG pO2 Sodium 134 L Potassium 1.5 L* Chloride 69.4 L Carbon Dioxide 52 H* BUN 5 L Creatinine 0.5 L Glucose 102 H POC Glucose 110 H Lactic Acid Calcium 8.1 L Magnesium Direct Bilirubin 0.6 H AST 112 H ALT 65 H Total Creatine Kinase 2654 H CK-MB (CK-2) 11.5 H Troponin T 0.144 H* Total Protein 5.7 L Albumin 2.7 L LDL Cholesterol Direct 44 L 05/12/18 05/12/18 05/12/18 07:00 08:09 09:20 WBC RBC MCV MCH MCHC Lymph % (Auto) Lymph # POC ABG pH POC ABG pCO2 POC ABG pO2 Sodium Potassium Chloride Carbon Dioxide BUN Creatinine Glucose POC Glucose Lactic Acid 4.00 H* 3.50 H* 4.30 H* Calcium Magnesium Direct Bilirubin AST ALT Total Creatine Kinase CK-MB (CK-2) Troponin T Total Protein Albumin LDL Cholesterol Direct 05/12/18 05/12/18 05/12/18 09:47 10:03 10:47 WBC RBC MCV MCH MCHC Lymph % (Auto) Lymph # POC ABG pH POC ABG pCO2 POC ABG pO2 Sodium 134 L Potassium 1.6 L* Chloride 75.5 L Carbon Dioxide 47 H* BUN 4 L Creatinine 0.6 L Glucose 130 H POC Glucose Lactic Acid 4.60 H* Calcium 7.3 L Magnesium Direct Bilirubin AST ALT Total Creatine Kinase 2530 H CK-MB (CK-2) 11.6 H Troponin T 0.114 H* D Total Protein Albumin LDL Cholesterol Direct 05/12/18 05/12/18 05/12/18 10:47 14:34 16:07 WBC RBC MCV MCH MCHC Lymph % (Auto) Lymph # POC ABG pH POC ABG pCO2 POC ABG pO2 Sodium Potassium 2.0 L* D Chloride 83.4 L Carbon Dioxide 49 H* BUN 4 L Creatinine 0.5 L Glucose 134 H POC Glucose Lactic Acid 3.40 H* Calcium 6.9 L Magnesium Direct Bilirubin AST ALT Total Creatine Kinase 2389 H CK-MB (CK-2) 9.9 H Troponin T 0.094 H Total Protein Albumin LDL Cholesterol Direct 05/12/18 05/12/18 05/12/18 21:10 22:09 22:44 WBC RBC MCV MCH MCHC Lymph % (Auto) Lymph # POC ABG pH POC ABG pCO2 POC ABG pO2 Sodium 146 H D Potassium 2.1 L* Chloride 89.8 L Carbon Dioxide 47 H* BUN 4 L Creatinine 0.6 L Glucose 145 H POC Glucose 144 H Lactic Acid Calcium 6.9 L Magnesium Direct Bilirubin AST ALT Total Creatine Kinase 1967 H CK-MB (CK-2) 7.1 H Troponin T 0.099 H Total Protein Albumin LDL Cholesterol Direct 05/13/18 05/13/18 05/13/18 03:55 03:55 06:09 WBC 4.1 L RBC 3.37 L MCV 105 H MCH 35 H MCHC Lymph % (Auto) Lymph # 1.0 L POC ABG pH POC ABG pCO2 POC ABG pO2 Sodium 148 H Potassium 2.0 L* Chloride 95.0 L Carbon Dioxide 48 H* BUN 3 L Creatinine 0.5 L Glucose 151 H POC Glucose 131 H Lactic Acid Calcium 6.7 L Magnesium 2.40 H Direct Bilirubin AST ALT Total Creatine Kinase CK-MB (CK-2) Troponin T Total Protein Albumin LDL Cholesterol Direct 05/13/18 05/13/18 05/13/18 09:59 14:48 14:52 WBC RBC MCV MCH MCHC Lymph % (Auto) Lymph # POC ABG pH 7.457 H POC ABG pCO2 58.5 H POC ABG pO2 53 L Sodium 147 H Potassium 2.9 L* D Chloride 97.2 L Carbon Dioxide 40 H D BUN 3 L Creatinine 0.6 L Glucose 118 H POC Glucose 205 H Lactic Acid Calcium 6.8 L Magnesium Direct Bilirubin AST ALT Total Creatine Kinase CK-MB (CK-2) Troponin T Total Protein Albumin LDL Cholesterol Direct 05/13/18 05/13/18 05/14/18 15:29 22:09 02:00 WBC RBC MCV MCH MCHC Lymph % (Auto) Lymph # POC ABG pH POC ABG pCO2 POC ABG pO2 Sodium Potassium 3.2 L Chloride 96.5 L Carbon Dioxide 39 H BUN 2 L Creatinine 0.5 L Glucose 102 H POC Glucose 110 H 117 H Lactic Acid Calcium 6.8 L Magnesium Direct Bilirubin AST ALT Total Creatine Kinase CK-MB (CK-2) Troponin T Total Protein Albumin LDL Cholesterol Direct 05/14/18 05/14/18 05/14/18 07:30 07:30 11:24 WBC RBC MCV MCH MCHC Lymph % (Auto) Lymph # POC ABG pH POC ABG pCO2 POC ABG pO2 Sodium Potassium Chloride 95.9 L Carbon Dioxide 37 H BUN 2 L Creatinine 0.5 L Glucose POC Glucose 137 H Lactic Acid Calcium 6.5 L Magnesium Direct Bilirubin AST ALT Total Creatine Kinase 2252 H CK-MB (CK-2) 8.0 H Troponin T 0.189 H* D Total Protein Albumin LDL Cholesterol Direct 05/14/18 05/14/18 05/15/18 17:44 21:29 04:10 WBC RBC MCV MCH MCHC Lymph % (Auto) Lymph # POC ABG pH POC ABG pCO2 POC ABG pO2 Sodium Potassium 2.9 L* D 3.3 L Chloride 90.5 L 94.2 L Carbon Dioxide 34 H 36 H BUN 2 L 2 L Creatinine 0.5 L 0.5 L Glucose 127 H POC Glucose 117 H Lactic Acid Calcium 6.7 L 6.9 L Magnesium Direct Bilirubin AST ALT Total Creatine Kinase CK-MB (CK-2) Troponin T Total Protein Albumin LDL Cholesterol Direct 05/15/18 05/16/18 05/16/18 05:30 00:51 05:41 WBC RBC MCV MCH MCHC Lymph % (Auto) Lymph # POC ABG pH POC ABG pCO2 POC ABG pO2 Sodium Potassium Chloride Carbon Dioxide 34 H BUN 2 L Creatinine 0.5 L Glucose POC Glucose 107 H 112 H Lactic Acid Calcium 7.3 L Magnesium Direct Bilirubin AST ALT Total Creatine Kinase 3656 H CK-MB (CK-2) 10.4 H Troponin T 0.129 H* D Total Protein Albumin LDL Cholesterol Direct 05/16/18 05/16/18 05/16/18 05:41 11:44 16:29 WBC 3.8 L RBC 3.50 L MCV 104 H MCH 35 H MCHC Lymph % (Auto) Lymph # POC ABG pH POC ABG pCO2 POC ABG pO2 Sodium Potassium Chloride Carbon Dioxide BUN Creatinine Glucose POC Glucose 106 H 113 H Lactic Acid Calcium Magnesium Direct Bilirubin AST ALT Total Creatine Kinase CK-MB (CK-2) Troponin T Total Protein Albumin LDL Cholesterol Direct 05/16/18 05/17/18 05/17/18 21:30 00:44 05:43 WBC RBC MCV MCH MCHC Lymph % (Auto) Lymph # POC ABG pH POC ABG pCO2 POC ABG pO2 Sodium Potassium Chloride 97.8 L Carbon Dioxide BUN 3 L Creatinine 0.6 L Glucose POC Glucose 114 H 108 H Lactic Acid Calcium 8.3 L Magnesium Direct Bilirubin AST ALT Total Creatine Kinase CK-MB (CK-2) Troponin T Total Protein Albumin LDL Cholesterol Direct 05/17/18 05/17/18 05/17/18 11:56 16:22 22:11 WBC RBC MCV MCH MCHC Lymph % (Auto) Lymph # POC ABG pH POC ABG pCO2 POC ABG pO2 Sodium Potassium Chloride Carbon Dioxide BUN Creatinine Glucose POC Glucose 109 H 133 H 116 H Lactic Acid Calcium Magnesium Direct Bilirubin AST ALT Total Creatine Kinase CK-MB (CK-2) Troponin T Total Protein Albumin LDL Cholesterol Direct Chest x-ray: report reviewed (Bibasilar infiltrates and pleural effusions.), image reviewed Allied health notes reviewed: nursing
[2018-05-18] MEDS: LIBRIUM PO SCH ×4 (00:52→23:11)
[2018-05-18] MEDS: LASIX IV SCH ×2 (05:44→18:03)
[2018-05-18 07:56] LABS: BUN/Creatinine Ratio 7; Blood Urea Nitrogen 6 mg/dL (7-17); Calcium 8.8 mg/dL (8.4-10.2); Hemolysis Index 5
[2018-05-18] MEDS: NORCO 7.5/325 PO PRN ×2 (08:15→20:49)
[2018-05-18] MEDS: LOPRESSOR PO SCH ×2 (10:09→22:33)
[2018-05-18] MEDS: ASPIRIN PO SCH (10:10)
[2018-05-18] MEDS: SODIUM CHLORIDE FLUSH SYRINGE 10 ML IV SCH ×2 (10:11→22:35)
--- NOTE | 2018-05-18 10:31 | Discharge Summary ---
Providers - Providers Date of Admission: 05/12/18 09:25 Attending physician: TAY GOMEZ MD 05/12/18 Consult to Cardiac Rehabilitation [CONS] Routine Reason For Exam: Phase 1 05/12/18 10:09 Consult to Physician [CONS] Routine Comment: Consulting Provider: FAVIOLA ALVA Physician Instructions: Reason For Exam: Syncope, NSTEMI, chest pain 05/12/18 11:40 PICC Line Insertion [Consult to PICC Line RN] [CONS] Urgent Reason For Exam: iv POtassium and iv pressors Type Line:: PICC 05/12/18 13:29 Consult to Physician [CONS] Routine Comment: Consulting Provider: KEISHA MAX Physician Instructions: Reason For Exam: Hypotension 05/12/18 14:52 Consult to Physician [CONS] Routine Comment: Consulting Provider: NOLVIA ESTEVEZ Physician Instructions: Reason For Exam: Chronic diarrhea Primary care physician: [facility] Hospitalization Condition: Stable Hospital course: 53-year-old woman with history of hypertension, chronic diarrhea. She presented after syncopal episode. She passed out in the bathroom c/o of chest pain that was constant dizziness, tingling in her extremities and generalized weakness. Patient states that she had diarrhea for over a year and has had endoscopy with Dr. Estevez. She has up to 8 episodes of diarrhea per day for the past year. She was hypotensive, required IV fluids and pressors * she received IVF and pressors, was weaned off pressors * she was seen by cardiology, had echo which showed preserved EF, and a negative stress test. * Her electrolytes were severely deranged, and were repleted * She admitted to alcohol abuse, which was ongoing. She received CIWA protocol. She received Lomotil after which her diarrhea resolved. She was managed by gastroenterology while in hospital. * She then suffered fluid overload after being hydrated with IV fluids., She received the Lasix, after which she improved. * The patient received oxygen for hypoxia, but she was diureses and then weaned off oxygen prior to discharge Diagnosis Syncope due to dehydration hypovolemic shock Transient autonomic imbalance Hypotension Severe hypokalemia and hypomagnesemia Type II [place] Rhabdomyolysis Severe chronic diarrhea etoh abuse Alcohol withdrawal -Acute hypoxic respiratory failure -acute diastolic CHF Disposition: TO HOME OR SELFCARE Time spent for discharge: 33 minutes Core Measure Documentation - Palliative Care Palliative Care/ Comfort Measures: Not Applicable - Core Measures Any of the following diagnoses?: none Exam - Constitutional Vitals: Temp Pulse Resp BP Pulse Ox 98.4 F 103 H 16 98/72 97 05/18/18 06:12 05/18/18 10:09 05/18/18 06:12 05/18/18 10:09 05/18/18 09:11 General appearance: Present: no acute distress, well-nourished - EENT Eyes: Present: PERRL ENT: hearing intact, clear oral mucosa - Neck Neck: Present: supple, normal ROM - Respiratory Respiratory effort: normal Respiratory: bilateral: CTA - Cardiovascular Heart Sounds: Present: S1 & S2. Absent: rub, click - Extremities Extremities: pulses symmetrical, No edema Peripheral Pulses: within normal limits - Abdominal General gastrointestinal: Present: soft, non-tender, non-distended, normal bowel sounds Female genitourinary: Present: normal - Integumentary Integumentary: Present: clear, warm, dry - Musculoskeletal Musculoskeletal: gait normal, strength equal bilaterally - Psychiatric Psychiatric: appropriate mood/affect, intact judgment & insight - Neurologic Neurologic: CNII-XII intact, moves all extremities Plan Follow up with: PRIMARY CARE, [Primary Care Provider] - 3-5 Days Prescriptions: Aspirin EC [Aspirin Enteric Coated TAB] 81 mg PO QDAY #30 tablet. Benzocaine/Menth/Cetylpyrd [Cepacol X Strength] 1 each MM Q2HR PRN #30 packet PRN Reason: Sore Throat Diphenoxylate/Atropine [Lomotil] 1 tab PO Q6H PRN #60 tablet PRN Reason: Diarrhea Furosemide [Lasix] 20 mg PO QDAY #7 tablet Metoprolol Succinate [Toprol Xl] 25 mg PO DAILY #30 tab.er.24h Phenol 1.4% [Chloraseptic] 1 spray MM PRN PRN #1 bottle PRN Reason: Sore Throat Potassium Chloride [K-Dur] 20 meq PO QDAY #7 tablet Other Discharge Orders: Oxygen (Amb) Location: None Selected
[2018-05-18] MEDS: XANAX PO SCH ×2 (12:37→22:35)
[2018-05-18] MEDS ORDERED: DELTASONE PO ONE (14:30)
[2018-05-18] MEDS: ROBITUSSIN AC PO SCH ×2 (14:55→22:35)
--- NOTE | 2018-05-18 15:37 | Progress Note ---
Assessment and Plan Patient awake at this time. On 2 litres O2. O2 saturation 96%.No acute respiratory distress.Patient says breathing better. - Patient Problems (1) Elevated troponin Current Visit: Yes Status: Acute Plan to address problem: Management as per cardiology. (2) Hypotension Current Visit: Yes Status: Acute Qualifiers: Hypotension type: other hypotension type Qualified Code(s): I95.89 - Other hypotension Plan to address problem: Blood pressure improved. Blood pressure 130/99. (3) Syncope Current Visit: Yes Status: Acute Qualifiers: Syncope type: unspecified Qualified Code(s): R55 - Syncope and collapse Plan to address problem: Management as per primary care and neurology. (4) Bilateral pleural effusion Current Visit: Yes Status: Acute Plan to address problem: Obtaining ultrasound of chest to quantitate pleural effusions. (5) Pulmonary infiltrates on CXR Current Visit: Yes Status: Acute Plan to address problem: Bibasilar pulmonary infiltrates Atelectasis vs Pneumonia. Patient afebrile, No leukocytosis. Albuterol/atrovent aerosol treatments to improve mucociliary clearence. Subjective Date of service: 05/18/18 Principal diagnosis: Hypotension; Syncope ; Transient autonomic imbalance; Severe hypokalemia Interval history: Patient awake at this time. On 2 litres O2. O2 saturation 96%.No acute respiratory distress.Patient says breathing better. Objective Vital Signs - 12hr 05/18/18 05/18/18 05/18/18 06:12 09:11 10:09 Temperature 98.4 F Pulse Rate 92 H 103 H Respiratory 16 Rate Blood Pressure 115/79 98/72 O2 Sat by Pulse 93 97 Oximetry Constitutional: no acute distress, alert, asleep, other (middle aged AAF, norocephalic and atraumatic with normal respiratory effort at rest) ENT: oropharynx moist Neck: supple, no lymphadenopathy, no JVD Effort: normal Ascultation: Bilateral: clear Percussion: Bilateral: not dull Cardiovascular: regular rate and rhythm Gastrointestinal: normoactive bowel sounds, soft, non-tender, non-distended Integumentary: normal Extremities: no cyanosis, no edema, pulses normal, no ischemia or petechiae Neurologic: normal mental status, non-focal exam, pupils equal and round, CN II- XII normal Psychiatric: mood appropriate, affect normal CBC and BMP: 05/16/18 05:41 05/18/18 05:10 ABG, PT/INR, D-dimer: ABG POC ABG pH 7.457 (7.35-7.45) H 05/13/18 14:52 POC ABG pCO2 58.5 (35-45) H 05/13/18 14:52 POC ABG pO2 53 (80-105) L 05/13/18 14:52 POC ABG HCO3 41.3 05/13/18 14:52 POC ABG Total CO2 43 05/13/18 14:52 POC ABG O2 Sat 87 05/13/18 14:52 PT/INR, D-dimer PT 13.3 Sec. (12.2-14.9) 05/12/18 07:00 INR 0.97 (0.87-1.13) 05/12/18 07:00 D-Dimer 202.11 ng/mlDDU (0-234) 05/12/18 07:00 Abnormal lab findings: Abnormal Labs 05/12/18 05/12/18 05/12/18 06:39 07:00 07:00 WBC 4.1 L RBC MCV 102 H MCH 36 H MCHC 35 H Lymph % (Auto) 50.0 H Lymph # POC ABG pH POC ABG pCO2 POC ABG pO2 Sodium 134 L Potassium 1.5 L* Chloride 69.4 L Carbon Dioxide 52 H* BUN 5 L Creatinine 0.5 L Glucose 102 H POC Glucose 110 H Lactic Acid Calcium 8.1 L Magnesium Direct Bilirubin 0.6 H AST 112 H ALT 65 H Total Creatine Kinase 2654 H CK-MB (CK-2) 11.5 H Troponin T 0.144 H* Total Protein 5.7 L Albumin 2.7 L LDL Cholesterol Direct 44 L 05/12/18 05/12/18 05/12/18 07:00 08:09 09:20 WBC RBC MCV MCH MCHC Lymph % (Auto) Lymph # POC ABG pH POC ABG pCO2 POC ABG pO2 Sodium Potassium Chloride Carbon Dioxide BUN Creatinine Glucose POC Glucose Lactic Acid 4.00 H* 3.50 H* 4.30 H* Calcium Magnesium Direct Bilirubin AST ALT Total Creatine Kinase CK-MB (CK-2) Troponin T Total Protein Albumin LDL Cholesterol Direct 05/12/18 05/12/18 05/12/18 09:47 10:03 10:47 WBC RBC MCV MCH MCHC Lymph % (Auto) Lymph # POC ABG pH POC ABG pCO2 POC ABG pO2 Sodium 134 L Potassium 1.6 L* Chloride 75.5 L Carbon Dioxide 47 H* BUN 4 L Creatinine 0.6 L Glucose 130 H POC Glucose Lactic Acid 4.60 H* Calcium 7.3 L Magnesium Direct Bilirubin AST ALT Total Creatine Kinase 2530 H CK-MB (CK-2) 11.6 H Troponin T 0.114 H* D Total Protein Albumin LDL Cholesterol Direct 05/12/18 05/12/18 05/12/18 10:47 14:34 16:07 WBC RBC MCV MCH MCHC Lymph % (Auto) Lymph # POC ABG pH POC ABG pCO2 POC ABG pO2 Sodium Potassium 2.0 L* D Chloride 83.4 L Carbon Dioxide 49 H* BUN 4 L Creatinine 0.5 L Glucose 134 H POC Glucose Lactic Acid 3.40 H* Calcium 6.9 L Magnesium Direct Bilirubin AST ALT Total Creatine Kinase 2389 H CK-MB (CK-2) 9.9 H Troponin T 0.094 H Total Protein Albumin LDL Cholesterol Direct 05/12/18 05/12/18 05/12/18 21:10 22:09 22:44 WBC RBC MCV MCH MCHC Lymph % (Auto) Lymph # POC ABG pH POC ABG pCO2 POC ABG pO2 Sodium 146 H D Potassium 2.1 L* Chloride 89.8 L Carbon Dioxide 47 H* BUN 4 L Creatinine 0.6 L Glucose 145 H POC Glucose 144 H Lactic Acid Calcium 6.9 L Magnesium Direct Bilirubin AST ALT Total Creatine Kinase 1967 H CK-MB (CK-2) 7.1 H Troponin T 0.099 H Total Protein Albumin LDL Cholesterol Direct 05/13/18 05/13/18 05/13/18 03:55 03:55 06:09 WBC 4.1 L RBC 3.37 L MCV 105 H MCH 35 H MCHC Lymph % (Auto) Lymph # 1.0 L POC ABG pH POC ABG pCO2 POC ABG pO2 Sodium 148 H Potassium 2.0 L* Chloride 95.0 L Carbon Dioxide 48 H* BUN 3 L Creatinine 0.5 L Glucose 151 H POC Glucose 131 H Lactic Acid Calcium 6.7 L Magnesium 2.40 H Direct Bilirubin AST ALT Total Creatine Kinase CK-MB (CK-2) Troponin T Total Protein Albumin LDL Cholesterol Direct 05/13/18 05/13/18 05/13/18 09:59 14:48 14:52 WBC RBC MCV MCH MCHC Lymph % (Auto) Lymph # POC ABG pH 7.457 H POC ABG pCO2 58.5 H POC ABG pO2 53 L Sodium 147 H Potassium 2.9 L* D Chloride 97.2 L Carbon Dioxide 40 H D BUN 3 L Creatinine 0.6 L Glucose 118 H POC Glucose 205 H Lactic Acid Calcium 6.8 L Magnesium Direct Bilirubin AST ALT Total Creatine Kinase CK-MB (CK-2) Troponin T Total Protein Albumin LDL Cholesterol Direct 05/13/18 05/13/18 05/14/18 15:29 22:09 02:00 WBC RBC MCV MCH MCHC Lymph % (Auto) Lymph # POC ABG pH POC ABG pCO2 POC ABG pO2 Sodium Potassium 3.2 L Chloride 96.5 L Carbon Dioxide 39 H BUN 2 L Creatinine 0.5 L Glucose 102 H POC Glucose 110 H 117 H Lactic Acid Calcium 6.8 L Magnesium Direct Bilirubin AST ALT Total Creatine Kinase CK-MB (CK-2) Troponin T Total Protein Albumin LDL Cholesterol Direct 05/14/18 05/14/18 05/14/18 07:30 07:30 11:24 WBC RBC MCV MCH MCHC Lymph % (Auto) Lymph # POC ABG pH POC ABG pCO2 POC ABG pO2 Sodium Potassium Chloride 95.9 L Carbon Dioxide 37 H BUN 2 L Creatinine 0.5 L Glucose POC Glucose 137 H Lactic Acid Calcium 6.5 L Magnesium Direct Bilirubin AST ALT Total Creatine Kinase 2252 H CK-MB (CK-2) 8.0 H Troponin T 0.189 H* D Total Protein Albumin LDL Cholesterol Direct 05/14/18 05/14/18 05/15/18 17:44 21:29 04:10 WBC RBC MCV MCH MCHC Lymph % (Auto) Lymph # POC ABG pH POC ABG pCO2 POC ABG pO2 Sodium Potassium 2.9 L* D 3.3 L Chloride 90.5 L 94.2 L Carbon Dioxide 34 H 36 H BUN 2 L 2 L Creatinine 0.5 L 0.5 L Glucose 127 H POC Glucose 117 H Lactic Acid Calcium 6.7 L 6.9 L Magnesium Direct Bilirubin AST ALT Total Creatine Kinase CK-MB (CK-2) Troponin T Total Protein Albumin LDL Cholesterol Direct 05/15/18 05/16/18 05/16/18 05:30 00:51 05:41 WBC RBC MCV MCH MCHC Lymph % (Auto) Lymph # POC ABG pH POC ABG pCO2 POC ABG pO2 Sodium Potassium Chloride Carbon Dioxide 34 H BUN 2 L Creatinine 0.5 L Glucose POC Glucose 107 H 112 H Lactic Acid Calcium 7.3 L Magnesium Direct Bilirubin AST ALT Total Creatine Kinase 3656 H CK-MB (CK-2) 10.4 H Troponin T 0.129 H* D Total Protein Albumin LDL Cholesterol Direct 05/16/18 05/16/18 05/16/18 05:41 11:44 16:29 WBC 3.8 L RBC 3.50 L MCV 104 H MCH 35 H MCHC Lymph % (Auto) Lymph # POC ABG pH POC ABG pCO2 POC ABG pO2 Sodium Potassium Chloride Carbon Dioxide BUN Creatinine Glucose POC Glucose 106 H 113 H Lactic Acid Calcium Magnesium Direct Bilirubin AST ALT Total Creatine Kinase CK-MB (CK-2) Troponin T Total Protein Albumin LDL Cholesterol Direct 05/16/18 05/17/18 05/17/18 21:30 00:44 05:43 WBC RBC MCV MCH MCHC Lymph % (Auto) Lymph # POC ABG pH POC ABG pCO2 POC ABG pO2 Sodium Potassium Chloride 97.8 L Carbon Dioxide BUN 3 L Creatinine 0.6 L Glucose POC Glucose 114 H 108 H Lactic Acid Calcium 8.3 L Magnesium Direct Bilirubin AST ALT Total Creatine Kinase CK-MB (CK-2) Troponin T Total Protein Albumin LDL Cholesterol Direct 05/17/18 05/17/18 05/17/18 11:56 16:22 22:11 WBC RBC MCV MCH MCHC Lymph % (Auto) Lymph # POC ABG pH POC ABG pCO2 POC ABG pO2 Sodium Potassium Chloride Carbon Dioxide BUN Creatinine Glucose POC Glucose 109 H 133 H 116 H Lactic Acid Calcium Magnesium Direct Bilirubin AST ALT Total Creatine Kinase CK-MB (CK-2) Troponin T Total Protein Albumin LDL Cholesterol Direct 05/18/18 05/18/18 05:10 11:25 WBC RBC MCV MCH MCHC Lymph % (Auto) Lymph # POC ABG pH POC ABG pCO2 POC ABG pO2 Sodium Potassium Chloride Carbon Dioxide BUN 6 L Creatinine Glucose POC Glucose 109 H Lactic Acid Calcium Magnesium Direct Bilirubin AST ALT Total Creatine Kinase CK-MB (CK-2) Troponin T Total Protein Albumin LDL Cholesterol Direct Allied health notes reviewed: nursing
--- NOTE | 2018-05-18 19:07 | Progress Note ---
Assessment and Plan Assessment and plan: 53-year-old woman with history of hypertension, chronic diarrhea. She presented after syncopal episode. She passed out in the bathroom cleaning of chest pain that was constant dizziness, tingling in her extremities and generalized weakness. Patient states that she had diarrhea for over a year and has had endoscopy with Dr. Aviles. She has up to 8 episodes of diarrhea per day for the past year. She was hypotensive, required IV fluids and pressors Problems Syncope due to dehydration Transient autonomic imbalance Hypotension Severe hypokalemia and hypomagnesemia Type II [place] Rhabdomyolysis Severe chronic diarrhea etoh abuse Alcohol withdrawal -Acute hypoxic respiratory failure -acute diastolic CHF Plans received IVF and pressors now fluid overloaded, bibasilar congestion and effusions seen on cxr -Lasix IV, cont oxygen supplement Electrolytes have been repleted Conservative medical management, cardiology input appreciated Antidiarrheals GI appreciated Patient now admits to heavy alcohol consumption. She has been counseled on cessation, CIWA protocol started echo shows preserved EF, stress test shows small defect, no further workup per cardiology -cecelia CM about home oxygen DVT prophylaxis chemical History Interval history: Review of systems Constitutional: No fevers, no malaise, no joint pains CVS: No chest pain, complaining of orthopnea, no dyspnea on exertion, no pedal edema GI: No abdominal pain, has chronic diarrhea- improved on lomotil, no vomiting, no constipation Respiratory: She is complaining of shortness of breath Hospitalist Physical - Physical exam Narrative exam: General.: Mild distress, nontoxic HEENT: Moist mucous membranes, extraocular muscles intact, no lymphadenopathy Neck: supple Cardiac: S1-S2 heard Lungs: Mild basilar crackles Abdomen: soft , nontender, nondistended, bowel sounds positive Extremities: no edema clubbing or cyanosis Skin: no rash or lesions Neurologic: no gross focal deficits Psych: calm, and cooperative - Constitutional Vitals: Temp Pulse Resp BP Pulse Ox 98.5 F 98 H 20 130/99 96 05/18/18 17:37 05/18/18 17:37 05/18/18 17:37 05/18/18 17:37 05/18/18 17:37 General appearance: Present: no acute distress, well-nourished Results - Labs CBC & Chem 7: 05/16/18 05:41 05/18/18 05:10 Labs: Laboratory Last Values WBC 3.8 K/mm3 (4.5-11.0) L 05/16/18 05:41 RBC 3.50 M/mm3 (3.65-5.03) L 05/16/18 05:41 Hgb 12.3 gm/dl (10.1-14.3) 05/16/18 05:41 Hct 36.4 % (30.3-42.9) 05/16/18 05:41 MCV 104 fl (79-97) H 05/16/18 05:41 MCH 35 pg (28-32) H 05/16/18 05:41 MCHC 34 % (30-34) 05/16/18 05:41 RDW 14.4 % (13.2-15.2) 05/16/18 05:41 Plt Count 158 K/mm3 (140-440) 05/16/18 05:41 Lymph % (Auto) 31.7 % (13.4-35.0) 05/16/18 05:41 [place] % (Auto) 5.6 % (0.0-7.3) 05/16/18 05:41 Eos % (Auto) 1.2 % (0.0-4.3) 05/16/18 05:41 Baso % (Auto) 1.1 % (0.0-1.8) 05/16/18 05:41 Lymph # 1.2 K/mm3 (1.2-5.4) 05/16/18 05:41 [place] # 0.2 K/mm3 (0.0-0.8) 05/16/18 05:41 Eos # 0.0 K/mm3 (0.0-0.4) 05/16/18 05:41 Baso # 0.0 K/mm3 (0.0-0.1) 05/16/18 05:41 Seg Neutrophils % 60.4 % (40.0-70.0) 05/16/18 05:41 Seg Neutrophils # 2.3 K/mm3 (1.8-7.7) 05/16/18 05:41 PT 13.3 Sec. (12.2-14.9) 05/12/18 07:00 INR 0.97 (0.87-1.13) 05/12/18 07:00 D-Dimer 202.11 ng/mlDDU (0-234) 05/12/18 07:00 POC ABG pH 7.457 (7.35-7.45) H 05/13/18 14:52 POC ABG pCO2 58.5 (35-45) H 05/13/18 14:52 POC ABG pO2 53 (80-105) L 05/13/18 14:52 POC ABG HCO3 41.3 05/13/18 14:52 POC ABG Total CO2 43 05/13/18 14:52 POC ABG O2 Sat 87 05/13/18 14:52 POC ABG Base Excess 17 05/13/18 14:52 FiO2 21 % 05/13/18 14:52 Sodium 142 mmol/L (137-145) 05/18/18 05:10 Potassium 4.6 mmol/L (3.6-5.0) 05/18/18 05:10 Chloride 102.3 mmol/L (98-107) 05/18/18 05:10 Carbon Dioxide 29 mmol/L (22-30) 05/18/18 05:10 Anion Gap 15 mmol/L 05/18/18 05:10 BUN 6 mg/dL (7-17) L 05/18/18 05:10 Creatinine 0.9 mg/dL (0.7-1.2) 05/18/18 05:10 Estimated GFR > 60 ml/min 05/18/18 05:10 BUN/Creatinine Ratio 7 % 05/18/18 05:10 Glucose 91 mg/dL (65-100) 05/18/18 05:10 POC Glucose 109 (70-105) H 05/18/18 16:29 Lactic Acid 3.40 mmol/L (0.7-2.0) H* 05/12/18 10:47 Calcium 8.8 mg/dL (8.4-10.2) 05/18/18 05:10 Phosphorus 2.90 mg/dL (2.5-4.5) 05/12/18 07:00 Magnesium 2.40 mg/dL (1.7-2.3) H 05/13/18 03:55 Total Bilirubin 1.10 mg/dL (0.1-1.2) 05/12/18 07:00 Direct Bilirubin 0.6 mg/dL (0-0.2) H 05/12/18 07:00 Indirect Bilirubin 0.5 mg/dL 05/12/18 07:00 AST 112 units/L (5-40) H 05/12/18 07:00 ALT 65 units/L (7-56) H 05/12/18 07:00 Alkaline Phosphatase 69 units/L (35-129) 05/12/18 07:00 Ammonia 41.0 umol/L (25-60) 05/12/18 07:00 Total Creatine Kinase 3656 units/L (30-135) H 05/16/18 05:41 CK-MB (CK-2) 10.4 ng/mL (0.0-4.0) H 05/16/18 05:41 CK-MB (CK-2) Rel Index 0.2 (0-4) 05/16/18 05:41 Troponin T 0.129 ng/mL (0.00-0.029) H* D 05/16/18 05:41 NT-Pro-B Natriuret Pep 800.9 pg/mL (0-900) 05/12/18 07:00 Total Protein 5.7 g/dL (6.3-8.2) L 05/12/18 07:00 Albumin 2.7 g/dL (3.9-5) L 05/12/18 07:00 Albumin/Globulin Ratio 0.9 % 05/12/18 07:00 Triglycerides 118 mg/dL (2-149) 05/12/18 07:00 Cholesterol 102 mg/dL (50-199) 05/12/18 07:00 LDL Cholesterol Direct 44 mg/dL (50-130) L 05/12/18 07:00 HDL Cholesterol 46 mg/dL (40-59) 05/12/18 07:00 Cholesterol/HDL Ratio 2.21 % 05/12/18 07:00 TSH 3.310 mlU/mL (0.270-4.200) 05/12/18 09:47 Free T4 1.31 ng/dL (0.76-1.46) 05/12/18 09:47 Blood Type O POSITIVE 05/12/18 07:00 Antibody Screen Negative 05/12/18 07:00 Nutrition/Malnutrition Assess - Dietary Evaluation Nutrition/Malnutrition Findings: Nutrition Notes Start: 05/13/18 12:49 Freq: Status: Active Protocol: Document 05/16/18 13:50 LM (Rec: 05/16/18 13:58 LM [id number]) Co-Sign 05/16/18 13:50 LP Nutrition Notes Initial or Follow up Brief Note Current Diagnosis Hypertension Hyperlipidemia Other Pertinent Diagnosis Neuropathy, Hx of chronic diarrhea, Hx of EtOh and tobacco use Current Diet GI soft Subjective/Other Information Pt not in room of time of visit. Room appeared to be [place] out. Nutrition Intervention Follow-Up By: 05/19/18 Additional Comments F/U for PO/ONS intakes
[2018-05-18] MEDS: NEURONTIN PO SCH (22:33)
[2018-05-19] MEDS: LASIX IV SCH (06:17)
[2018-05-19 06:28] LABS: Calcium 8.9 mg/dL (8.4-10.2)
[2018-05-19] MEDS: NORCO 7.5/325 PO PRN (08:51)
[2018-05-19] MEDS: ROBITUSSIN AC PO SCH ×2 (08:51→13:19)
[2018-05-19] MEDS: LIBRIUM PO SCH ×2 (08:55→15:38)
--- NOTE | 2018-05-19 09:13 | Ultrasound Report ---
ULTRASOUND CHEST History: Bilateral pleural effusions. Findings: Targeted grayscale ultrasound was performed on both sides of the chest to evaluate pleural effusions. Small free-flowing pleural effusions are identified bilaterally measuring 118 cc on the right and 304 cc on the left. Impression: Small bilateral pleural effusions as described.
[2018-05-19] MEDS: ASPIRIN PO SCH (09:59)
[2018-05-19] MEDS: SODIUM CHLORIDE FLUSH SYRINGE 10 ML IV SCH (09:59)
[2018-05-19] MEDS: XANAX PO SCH (09:59)
[2018-05-19] MEDS ORDERED: DELTASONE PO SCH (10:00)
[2018-05-19] MEDS: LOPRESSOR PO SCH (10:03)
[2018-05-19 14:21] VITALS: BP 84/61
--- NOTE | 2018-05-19 16:36 | Discharge Summary ---
Providers - Providers Date of Admission: 05/12/18 09:25 Attending physician: TAY GOMEZ MD 05/12/18 Consult to Cardiac Rehabilitation [CONS] Routine Reason For Exam: Phase 1 05/12/18 11:40 PICC Line Insertion [Consult to PICC Line RN] [CONS] Urgent Reason For Exam: iv POtassium and iv pressors Type Line:: PICC 05/12/18 13:29 Consult to Physician [CONS] Routine Comment: Consulting Provider: KEISHA MAX Physician Instructions: Reason For Exam: Hypotension 05/12/18 14:52 Consult to Physician [CONS] Routine Comment: Consulting Provider: NOLVIA AVILES Physician Instructions: Reason For Exam: Chronic diarrhea Primary care physician: FLOATMAN Hospitalization Condition: Stable Hospital course: 53-year-old woman with history of hypertension, chronic diarrhea. She presented after syncopal episode. She passed out in the bathroom c/o of chest pain that was constant dizziness, tingling in her extremities and generalized weakness. Patient states that she had diarrhea for over a year and has had endoscopy with Dr. Aviles. She has up to 8 episodes of diarrhea per day for the past year. She was hypotensive, required IV fluids and pressors * she received IVF and pressors, was weaned off pressors * she was seen by cardiology, had echo which showed preserved EF, and a negative stress test. * Her electrolytes were severely deranged, and were repleted * She admitted to alcohol abuse, which was ongoing. She received CIWA protocol. She received Lomotil after which her diarrhea resolved. She was managed by gastroenterology while in hospital. * She then suffered fluid overload after being hydrated with IV fluids., She received the Lasix, after which she improved. * The patient received oxygen for hypoxia, but she was diureses and then weaned off oxygen prior to discharge Diagnosis Syncope due to dehydration hypovolemic shock Transient autonomic imbalance Hypotension Severe hypokalemia and hypomagnesemia Type II [place] Rhabdomyolysis Severe chronic diarrhea etoh abuse Alcohol withdrawal -Acute hypoxic respiratory failure -acute diastolic CHF Disposition: TO HOME OR SELFCARE Time spent for discharge: 33 minutes Core Measure Documentation - Palliative Care Palliative Care/ Comfort Measures: Not Applicable - Core Measures Any of the following diagnoses?: none Exam - Constitutional Vitals: Temp Pulse Resp BP Pulse Ox 97.7 F 87 18 84/61 98 05/19/18 11:41 05/19/18 11:41 05/19/18 11:41 05/19/18 11:41 05/19/18 11:41 General appearance: Present: no acute distress, well-nourished - EENT Eyes: Present: PERRL ENT: hearing intact, clear oral mucosa - Neck Neck: Present: supple, normal ROM - Respiratory Respiratory effort: normal Respiratory: bilateral: CTA - Cardiovascular Heart Sounds: Present: S1 & S2. Absent: rub, click - Extremities Extremities: pulses symmetrical, No edema Peripheral Pulses: within normal limits - Abdominal General gastrointestinal: Present: soft, non-tender, non-distended, normal bowel sounds Female genitourinary: Present: normal - Integumentary Integumentary: Present: clear, warm, dry - Musculoskeletal Musculoskeletal: gait normal, strength equal bilaterally - Psychiatric Psychiatric: appropriate mood/affect, intact judgment & insight - Neurologic Neurologic: CNII-XII intact, moves all extremities Plan Follow up with: PRIMARY CARE,MD [Primary Care Provider] - 3-5 Days Prescriptions: Aspirin EC [Aspirin Enteric Coated TAB] 81 mg PO QDAY #30 tablet. Benzocaine/Menth/Cetylpyrd [Cepacol X Strength] 1 each MM Q2HR PRN #30 packet PRN Reason: Sore Throat Diphenoxylate/Atropine [Lomotil] 1 tab PO Q6H PRN #60 tablet PRN Reason: Diarrhea Furosemide [Lasix] 20 mg PO QDAY #7 tablet Metoprolol Succinate [Toprol Xl] 25 mg PO DAILY #30 tab.er.24h Phenol 1.4% [Chloraseptic] 1 spray MM PRN PRN #1 bottle PRN Reason: Sore Throat Potassium Chloride [K-Dur] 20 meq PO QDAY #7 tablet Other Discharge Orders: Oxygen (Amb) Location: None Selected
== END 2018-05-19 16:30 | disposition home or self-care (01) | DRG 871 ==
LOC: ED 06:17 → IMCU 09:25 → CC1 19:06 → IMCU 05-15 08:41 → 3A 05-15 21:40
PROVIDERS: ADMIT Internal Medicine; ATTEND Internal Medicine
PROC: 02H633Z Insertion of Infusion Device into Right Atrium, Percutaneous Approach (ICD-10-PCS; 2018-05-12)
PROC: 4A033R1 Measurement of Arterial Saturation, Peripheral, Percutaneous Approach (ICD-10-PCS; principal; 2018-05-13)
DX: A41.9 Sepsis, unspecified organism (principal); I21.A1 Myocardial infarction type 2; J96.01 Acute respiratory failure with hypoxia; I50.31 Acute diastolic (congestive) heart failure; R57.1 Hypovolemic shock; M62.82 Rhabdomyolysis; I95.9 Hypotension, unspecified; E87.6 Hypokalemia; I11.0 Hypertensive heart disease with heart failure; K52.9 Noninfective gastroenteritis and colitis, unspecified; E83.42 Hypomagnesemia; G90.8 Other disorders of autonomic nervous system; F10.10 Alcohol abuse, uncomplicated; E78.5 Hyperlipidemia, unspecified; G62.9 Polyneuropathy, unspecified; E03.9 Hypothyroidism, unspecified; Z82.49 Family history of ischemic heart disease and other diseases of the circulatory system; Z71.6 Tobacco abuse counseling; J20.9 Acute bronchitis, unspecified; J84.89 Other specified interstitial pulmonary diseases
CPT/HCPCS: 36415; 36600; 71045; 74177; 76604; 78452; 80048; 80061; 80076; 82140; 82550; 82553; 82803; 82962; 83735; 83880; 84100; 84439; 84443; 84484; 85025; 85379; 85610; 86850; 86900; 86901; 87040; 87045; 87086; 93005; 93010; 93017; 93306; 94640; 94760; 96361; 96365; 96368; G0378; A9502; C9113; J1650; J1940; J2270; J2543; J2785; J3370; J3475; J3480; J7030; J7042; J7050; J7512; Q0162; Q0163; Q9967

== ENCOUNTER 2018-08-05 20:25 | Emergency (ER) | payer OTHER, MEDICAID ==
[2018-08-05] MEDS ORDERED: NORCO 5/325 PO ONE (23:17)
[2018-08-05 23:52] LABS: Hematocrit 37.4 % (30.3-42.9); Hemoglobin 11.7 gm/dl (10.1-14.3); Mean Corpuscular HGB Conc 31 % (30-34); Mean Corpuscular Volume 101 fl (79-97); Platelet Count 138 K/mm3 (140-440); Red Blood Count 3.69 M/mm3 (3.65-5.03); Red Cell Distribution Width 16.3 % (13.2-15.2)
--- NOTE | 2018-08-06 00:04 | Emergency Department Report ---
ED Fall HPI - General Chief Complaint: Fall Stated Complaint: NECK AND BACK PAIN Time Seen by Provider: 08/05/18 23:16 Source: patient Mode of arrival: Ambulatory - History of Present Illness Initial Comments: Patient is a 53-year-old -[place] female with history of diabetes hypertension depression and asthma who presents status post fall today states he is talkative and resume weren't tripped I reviewed the study pre-dromal dizziness there is no fever no chills no shortness of breath no abdominal pain no nausea vomiting no chest pain patient complains of fluid within left posterior lateral neck pain and lumbar pain and there is no weakness and no numbness no tingling patient is ambulatory to baseline per patient patient states pains are exacerbated by movement and is relieved by nothing at this time patient denies cardiac history patient denies dizziness intermittent hypotension with amlodipine that she takes daily [address] Ríos Onset/Timin -: days(s) Fall From: standing When Fall Occurred: 4-6 hours [employer] Fall Witnessed: yes, by family Place Fall Occurred: home Loss of Consciousness: none Prolonged Down Time?: no Symptoms Prior to Fall: dizziness Location: neck, back Severity: moderate Severity scale (0 -10): 5 Quality: aching Context: tripped/slipped Associated Symptoms: neck pain, other (back pain ) - Related Data Home Medications Medication Instructions Recorded Confirmed Last Taken ALPRAZolam [Xanax TAB] 0.5 mg PO BID 05/12/18 05/12/18 Unknown DULoxetine [Cymbalta] 30 mg PO QDAY 05/12/18 05/12/18 Unknown Quetiapine Fumarate [SEROquel] 50 mg PO QDAY 05/12/18 05/12/18 Unknown Vortioxetine Hydrobromide 20 mg PO QDAY 05/12/18 05/12/18 Unknown [Trintellix] Previous Rx's Medication Instructions Recorded Last Taken Type Aspirin EC [Aspirin Enteric Coated 81 mg PO QDAY #30 tablet. 05/16/18 Unknown Rx TAB] Diphenoxylate/Atropine [Lomotil] 1 tab PO Q6H PRN #60 tablet 05/16/18 Unknown Rx Benzocaine/Mentho [Cepacol X 1 each MM Q2HR PRN #30 packet 05/18/18 Unknown Rx Strength] Furosemide [Lasix] 20 mg PO QDAY #7 tablet 05/18/18 Unknown Rx Metoprolol Succinate [Toprol Xl] 25 mg PO DAILY #30 tab.er.24h 05/18/18 Unknown Rx Phenol 1.4% [Chloraseptic] 1 spray MM PRN PRN #1 bottle 05/18/18 Unknown Rx Potassium Chloride [K-Dur] 20 meq PO QDAY #7 tablet 05/18/18 Unknown Rx Acetaminophen [Tylenol Extra 1,000 mg PO QID 1 Days #30 tablet 08/06/18 Unknown Rx Strength] Amoxicillin/Potassium Clav 1 each PO BID 10 Days #20 tablet 08/06/18 Unknown Rx [Augmentin 875-125 Tablet] diphenhydrAMINE [Benadryl CAP] 25 mg PO Q8H PRN 2 Days #30 capsule 08/06/18 Unknown Rx Allergies Allergy/AdvReac Type Severity Reaction Status Date / Time No Known Allergies Allergy Verified 08/05/18 20:30 ED Review of Systems ROS: Stated complaint: NECK AND BACK PAIN Other details as noted in HPI Constitutional: denies: chills, fever Eyes: denies: eye pain, eye discharge, vision change ENT: denies: ear pain, throat pain Respiratory: denies: cough, shortness of breath, wheezing Cardiovascular: denies: chest pain, palpitations Endocrine: no symptoms reported Gastrointestinal: denies: abdominal pain, nausea, diarrhea Genitourinary: denies: urgency, dysuria, discharge Musculoskeletal: back pain, arthralgia, myalgia Skin: denies: rash, lesions Neurological: denies: headache, weakness, paresthesias Psychiatric: denies: anxiety, depression Hematological/Lymphatic: denies: easy bleeding, easy bruising ED Past Medical Hx - Past Medical History Previous Medical History?: Yes Hx Hypertension: Yes Hx Heart Attack/AMI: No Hx Congestive Heart Failure: No Hx Diabetes: Yes Hx Deep Vein Thrombosis: No Hx Pulmonary Embolism: No Hx GERD: No Hx Arthritis: Yes Hx Headaches / Migraines: Yes Hx Seizures: Yes ("I had one seizure a long time ago") Hx Asthma: Yes Hx COPD: No Hx Tuberculosis: No Hx Dementia: No Hx HIV: No Additional medical history: asthma, HTN, Hypothyroid, High Cholesterol, and smoker - Surgical History Past Surgical History?: Yes Hx Coronary Stent: No Hx Pacemaker: No Hx Internal Defibrillator: No Additional Surgical History: removed thyroid - Social History Smoking Status: Former Smoker Substance Use Type: None - Medications Home Medications: Home Medications Medication Instructions Recorded Confirmed Last Taken Type ALPRAZolam [Xanax TAB] 0.5 mg PO BID 05/12/18 05/12/18 Unknown History DULoxetine [Cymbalta] 30 mg PO QDAY 05/12/18 05/12/18 Unknown History Quetiapine Fumarate [SEROquel] 50 mg PO QDAY 05/12/18 05/12/18 Unknown History Vortioxetine Hydrobromide 20 mg PO QDAY 05/12/18 05/12/18 Unknown History [Trintellix] Aspirin EC [Aspirin Enteric Coated 81 mg PO QDAY #30 tablet.dr 05/16/18 Unknown Rx TAB] Diphenoxylate/Atropine [Lomotil] 1 tab PO Q6H PRN #60 tablet 05/16/18 Unknown Rx Benzocaine/Mentho [Cepacol X 1 each MM Q2HR PRN #30 packet 05/18/18 Unknown Rx Strength] Furosemide [Lasix] 20 mg PO QDAY #7 tablet 05/18/18 Unknown Rx Metoprolol Succinate [Toprol Xl] 25 mg PO DAILY #30 tab.er.24h 05/18/18 Unknown Rx Phenol 1.4% [Chloraseptic] 1 spray MM PRN PRN #1 bottle 05/18/18 Unknown Rx Potassium Chloride [K-Dur] 20 meq PO QDAY #7 tablet 05/18/18 Unknown Rx Acetaminophen [Tylenol Extra 1,000 mg PO QID 1 Days #30 tablet 08/06/18 Unknown Rx Strength] Amoxicillin/Potassium Clav 1 each PO BID 10 Days #20 tablet 08/06/18 Unknown Rx [Augmentin 875-125 Tablet] diphenhydrAMINE [Benadryl CAP] 25 mg PO Q8H PRN 2 Days #30 capsule 08/06/18 Unknown Rx ED Physical Exam - General Limitations: No Limitations General appearance: alert, in no apparent distress - Head Head exam: Present: normocephalic, normal inspection - Expanded Head Exam Expanded Head exam: Absent: laceration, abrasion, contusion, hematoma, racoon eyes, andrews's sign, general tenderness, tenderness of temporal artery, CSF rhinorrhea, CSF otorrhea - Eye Eye exam: Present: normal appearance, PERRL, EOMI Pupils: Present: normal accommodation - ENT ENT exam: Present: normal orophraynx, mucous membranes moist, TM's normal bilaterally, normal external ear exam - Neck Neck exam: Present: normal inspection, tenderness (left posterior lateral neck muscle tenderness to deep palpation ), full ROM. Absent: meningismus, lymphadenopathy, thyromegaly - Expanded Neck Exam Expanded Neck exam: Present: tenderness (no posterior vertebral point tenderness rom intact including chin to chest bilat shoulders and full extension without restriction). Absent: midline deformity, anterior neck swelling, thyroid mass, carotid bruit, tracheal deviation - Respiratory Respiratory exam: Present: normal lung sounds bilaterally. Absent: respiratory distress, wheezes, stridor, chest wall tenderness - Cardiovascular Cardiovascular Exam: Present: regular rate, normal rhythm, normal heart sounds. Absent: systolic murmur, diastolic murmur, rubs, gallop - GI/Abdominal GI/Abdominal exam: Present: soft, normal bowel sounds. Absent: distended, tenderness, guarding, rebound, rigid, bruit, hernia - Rectal Rectal exam: Present: deferred - Extremities Exam Extremities exam: Present: normal inspection, full ROM, normal capillary refill. Absent: tenderness, pedal edema, joint swelling, calf tenderness - Back Exam Back exam: Present: full ROM, tenderness (right lateral back muscle tenderness no deformity no ecchymosis no stepoff no posterior vertebral point tenderness ), muscle spasm, paraspinal tenderness. Absent: CVA tenderness (R), CVA tenderness (L), vertebral tenderness, rash noted - Expanded Back Exam Expanded Back exam: Absent: saddle anesthesia Back exam: Positive Straight Leg Raise: Right, Negative Straight Leg Raising: Left - Neurological Exam Neurological exam: Present: alert, oriented X3, CN II-XII intact, normal gait. Absent: reflexes normal - Psychiatric Psychiatric exam: Present: normal affect, normal mood - Skin Skin exam: Present: warm, dry, intact, normal color. Absent: rash ED Medical Decision Making - Lab Data Result diagrams: 08/05/18 23:28 08/06/18 01:20 Labs 08/05/18 08/05/18 08/06/18 23:28 23:28 01:20 WBC 4.6 RBC 3.69 Hgb 11.7 Hct 37.4 MCV 101 H MCH 32 MCHC 31 RDW 16.3 H Plt Count 138 L Lymph % (Auto) Adoption Coordinator [place] % (Auto) Adoption Coordinator Eos % (Auto) Adoption Coordinator Baso % (Auto) Adoption Coordinator Lymph # Adoption Coordinator [place] # Adoption Coordinator Eos # Adoption Coordinator Baso # Adoption Coordinator Seg Neutrophils % Adoption Coordinator Seg Neutrophils # Adoption Coordinator Sodium 129 L 130 L Potassium 4.4 3.5 L D Chloride 83.2 L 85.0 L Carbon Dioxide 17 L 21 L Anion Gap 33 28 BUN 6 L 6 L Creatinine 0.6 L 0.6 L Estimated GFR > 60 > 60 BUN/Creatinine Ratio 10 10 Glucose 160 H 137 H Calcium 9.2 9.2 Total Bilirubin 4.30 H AST 141 H ALT 101 H Alkaline Phosphatase 297 H Troponin T < 0.010 Total Protein 7.6 Albumin 3.4 L Albumin/Globulin Ratio 0.8 - EKG Data EKG shows normal: sinus rhythm, axis, intervals, QRS complexes, ST-T waves Rate: normal - EKG Data When compared to previous EKG there are: changes noted Interpretation: normal EKG, other 08/06/18 03:22 ekg interp by ed attending NSR no ST Elevation no ectopy - Radiology Data Radiology results: report reviewed, image reviewed Ordering Physician: MARY HUANG NP Date of Service: 08/05/18 Procedure(s): XR spine lumbosacral 2-3V Accession Number(s): [id number] cc: MARY HUANG NP Fluoro Time In Minutes: PROCEDURE: XR SPINE LUMBOSACRAL 2-3V TECHNIQUE: Lumbar spine radiographs, three views. HISTORY: glf low back pain COMPARISONS: None . FINDINGS: Alignment: Normal . Vertebral body heights/Disk spaces: Normal . Fracture(s): There is a compression fracture of the superior endplate of L1 with approximately 25% loss of height. There is no retropulsion or malalignment. . Facets: Normal . Bone mineralization: Normal . There is diffuse calcified atherosclerosis of the abdominal aorta. There is no aneurysm. IMPRESSION: Recent fracture superior endplate of L1. . This document is electronically signed by Stephen George MD., August 06 2018 12:35:20 AM ET Transcribed By: CO Dictated By: STEPHEN GEORGE MD Electronically Authenticated By: STEPHEN GEORGE MD Signed Date/Time: 08/06/18 0037 DD/DT: [id number] TD/TT: 08/05/182358 Ordering Physician: MARY HUANG NP Date of Service: 08/05/18 Procedure(s): XR chest routine 2V Accession Number(s): [id number] cc: MARY HUANG NP Fluoro Time In Minutes: PROCEDURE: XR CHEST ROUTINE 2V TECHNIQUE: PA and lateral views of the chest were submitted. HISTORY: dizziness COMPARISONS: 05/16/2018 FINDINGS: The heart size and mediastinum appear normal. The lungs are not overtly conges nanci. There is very mild interstitial prominence in both lungs. Pleural fluid is not seen. The skele fadia structures do not show any acute changes. IMPRESSION: Very mild interstitial prominence. No localized infiltrates or effusions.. This document is electronically signed by Hyacinth Keyes MD., August 06 2018 12:06:36 AM ET Transcribed By: RB Dictated By: HYACINTH KEYES MD Electronically Authenticated By: HYACINTH KEYES MD Signed Date/Time: 08/06/18 0008 DD/ 58 TD/TT: 08/05/182358 cc: MARY HUANG NP PROCEDURE: CT HEAD/BRAIN WO CON TECHNIQUE: Axial images were obtained of the head without contrast. HISTORY: Glf head pain. COMPARISONS: Head CT dated May 22, 2016. FINDINGS: BONE - Calvarium: Intact. Central skull base: Intact. Temporal mastoids: No effusion. Included paranasal sinuses: Well aerated. Mucosal thickening of the maxillary sinuses. Nasal polyps vs mucous retention cysts noted. Intracranial vascular calcifications. CSF SPACES - Ventricles: Prominent. Subarachnoid spaces: Prominent. BRAIN - Mild periventricular variable white matter changes. No acute intracranial bleed, large vessel territory infarct or mass. IMPRESSION: 1. No significant intracranial pathology. 2. Aging brain morphology. This document is electronically signed by Cynthia Alfredo DO., August 06 2018 12:41:26 AM ET Transcribed By: DT Dictated By: CYNTHIA ALFREDO DO Electronically Authenticated By: CYNTHIA ALFREDO DO Signed Date/Time: 08/06/18 0043 DD/ 0001 TD/TT: 08/06/18 0016 ONE - Calvarium: Intact. Central skull base: Intact. Temporal mastoids: No effusion. Included paranasal sinuses: Well aerated. Mucosal thickening of the maxillary sinuses. Nasal polyps vs mucous retention cysts noted. Intracranial vascular calcifications. CSF SPACES - Ventricles: Prominent. Subarachnoid spaces: Prominent. BRAIN - Mild periventricular variable white matter changes. No acute intracranial bleed, large vessel territory infarct or mass. IMPRESSION: 1. No significant intracranial pathology. 2. Aging brain morphology. This document is electronically signed by Cynthia Alfredo DO., August 06 2018 12:41:26 AM ET Transcribed By: DT Dictated By: CYNTHIA ALFREDO DO Electronically Authenticated By: CYNTHIA ALFREDO DO Signed Date/Time: 08/06/18 0043 - Medical Decision Making Symptoms improved patient tolerated by mouth intake without nausea vomiting patient was monitored and 80 with no symptoms of dizziness or vertigo patient given normal saline 2 L will hold Lasix until follow-up with PCP TOMORROW , noted small and one endplate fracture recent prior x-ray there is mild posterior vertebral point tenderness at L1 is no deformity no ecchymosis or crepitus no step-off patient is ambulatory with was steady gait there is no numbness no tingling or loss or decrease in bowel or bladder function patient advises she will follow up with orthopedic on tomorrow refuses to discuss possible transfer or admission assessment findings this is reasonable as patient is ambulatory there is no gait disturbances no numbness no neuro deficits no deformity this pain is usually low back pain location and intensity cervical spine x-rays were negative for fracture patient has reliable support system at home she will be DC'd home with family members patient appears well nontoxic , demonstrates decision making capacity, is ambulatory with steady gait, there is no acute distress at this time. Critical care attestation.: If time is entered above; I have spent that time in minutes in the direct care of this critically ill patient, excluding procedure time. ED Disposition Clinical Impression: Dehydration, Near syncope Fall Qualifiers: Encounter type: initial encounter Qualified Code(s): W19.XXXA - Unspecified fall, initial encounter Sinusitis Qualifiers: Sinusitis location: maxillary Chronicity: acute Recurrence: recurrent Qualified Code(s): J01.01 - Acute recurrent maxillary sinusitis Disposition: DC-01 TO HOME OR SELFCARE Is pt being admited?: No Does the pt Need Aspirin: No Condition: Good Instructions: Low Back Strain (ED), Vertebral Compression Fracture (ED) Prescriptions: Amoxicillin/Potassium Clav [Augmentin 875-125 Tablet] 1 each PO BID 10 Days #20 tablet diphenhydrAMINE [Benadryl CAP] 25 mg PO Q8H PRN 2 Days #30 capsule PRN Reason: sinnus congestion Acetaminophen [Tylenol Extra Strength] 1,000 mg PO QID 1 Days #30 tablet Referrals: ESTEFANY RÍOS JR, MD [Primary Care Provider] - 24 Hours HYACINTH CONNER MD [Staff Physician] - 3-5 Days Forms: Work/School Release Form(ED) Time of Disposition: 04:06
--- NOTE | 2018-08-06 00:08 | XRay Report ---
PROCEDURE: XR CHEST ROUTINE 2V TECHNIQUE: PA and lateral views of the chest were submitted. HISTORY: dizziness COMPARISONS: 05/16/2018 FINDINGS: The heart size and mediastinum appear normal. The lungs are not overtly congested. There is very mild interstitial prominence in both lungs. Pleural fluid is not seen. The skeletal structures do not terry w any acute changes. IMPRESSION: Very mild interstitial prominence. No localized infiltrates or effusions.. This document is electronically signed by Ilan Keyes MD., August 06 2018 12:06:36 AM ET
[2018-08-06 00:29] LABS: BUN/Creatinine Ratio 10; Blood Urea Nitrogen 6 mg/dL (7-17); Calcium 9.2 mg/dL (8.4-10.2); Hemolysis Index 163
--- NOTE | 2018-08-06 00:37 | XRay Report ---
PROCEDURE: XR SPINE LUMBOSACRAL 2-3V TECHNIQUE: Lumbar spine radiographs, three views. HISTORY: glf low back pain COMPARISONS: None . FINDINGS: Alignment: Normal . Vertebral body heights/Disk spaces: Normal . Fracture(s): There is a compression fracture of the superior endplate of L1 with approximately 25% l oss of height. There is no retropulsion or malalignment. . Facets: Normal . Bone mineralization: Normal . There is diffuse calcified atherosclerosis of the abdominal aorta. There is no aneurysm. IMPRESSION: Recent fracture superior endplate of L1. . This document is electronically signed by Stephen Padilla MD., August 06 2018 12:35:20 AM ET
--- NOTE | 2018-08-06 00:43 | Cat Scan Report ---
PROCEDURE: CT HEAD/BRAIN WO CON TECHNIQUE: Axial images were obtained of the head without contrast. HISTORY: Glf head pain. COMPARISONS: Head CT dated May 22, 2016. FINDINGS: BONE - Calvarium: Intact. Central skull base: Intact. Temporal mastoids: No effusion. Included paranasal sinuses: Well aerated. Mucosal thickening of the maxillary sinuses. Nasal polyps vs mucous retention cysts noted. Intracranial vascular calcifications. CSF SPACES - Ventricles: Prominent. Subarachnoid spaces: Prominent. BRAIN - Mild periventricular variable white matter changes. No acute intracranial bleed, large vessel territory infarct or mass. IMPRESSION: 1. No significant intracranial pathology. 2. Aging brain morphology. This document is electronically signed by Ronny Alfredo DO., August 06 2018 12:41:26 AM ET
[2018-08-06] MEDS ORDERED: NACL 0.9% 1000 ML 1,000 ML IV ONE ×2 (01:15→01:16)
[2018-08-06 01:53] LABS: Alanine Aminotransferase 101 units/L (7-56); Albumin 3.4 g/dL (3.9-5); BUN/Creatinine Ratio 10; Blood Urea Nitrogen 6 mg/dL (7-17); Calcium 9.2 mg/dL (8.4-10.2); Hemolysis Index 25
[2018-08-06] MEDS ORDERED: TYLENOL PO ONE (04:04)
[2018-08-06 05:07] VITALS: BP 136/78
--- NOTE | 2018-08-11 08:42 | Cat Scan Report ---
Cervical CT without contrast: Trauma, head pain. Transverse images are obtained from the posterior fossa through T2. Coronal and sagittal 2-D reformatted images are included. There is mild interspace narrowing at the C2-3 level as well as moderate narrowing at C6-7. Traction spurs are noted anteriorly at C2-3, C4-5, C5-C7. The vertebral height and alignment is maintained at all levels. There is a cleavage appearing lucency through the posterior lamina on the right at C2. There is no associated displacement or swelling. At C6-7 large uncal spurs are identified bilaterally with associated bilateral foraminal stenoses and mild compromise of the spinal canal. No evidence of obvious neural compression nor soft tissue swelling. Of incidental note is the presence of calcific plaque in the aortic arch and carotid arteries. Impressions: 1. Compressed interspaces at C2-3 and C6-7 without evidence of neural compression. 2. Bilateral foraminal stenoses and mild spinal stenosis at C6-7. 3. The lamina cleavage on the right at C2 is most likely a chronic finding however clinical correlation to this specific location is recommended.
== END 2018-08-06 04:50 | disposition home or self-care (01) ==
LOC: ED 20:25
DX: E86.0 Dehydration (principal); R55 Syncope and collapse; J01.01 Acute recurrent maxillary sinusitis; W01.0XXA Fall on same level from slipping, tripping and stumbling without subsequent striking against object, initial encounter; Y93.89 Activity, other specified; Y92.019 Unspecified place in single-family (private) house as the place of occurrence of the external cause; Y99.8 Other external cause status
CPT/HCPCS: 36415; 70450; 71046; 72100; 72125; 80048; 80053; 84484; 85025; 93005; 93010; 96360; 96361; 99284; J7030

== ENCOUNTER 2018-10-27 23:20 | Emergency (ER) | payer OTHER, MEDICAID ==
[2018-10-28 00:43] LABS: Basophils # (Auto) 0.1 K/mm3 (0.0-0.1); Basophils % (Auto) 1.4 % (0.0-1.8); Hematocrit 35.9 % (30.3-42.9); Hemoglobin 11.9 gm/dl (10.1-14.3); Lymphocytes # (Auto) 3.5 K/mm3 (1.2-5.4); Lymphocytes % (Auto) 49.3 % (13.4-35.0); Mean Corpuscular HGB Conc 33 % (30-34); Mean Corpuscular Volume 106 fl (79-97); Monocytes # (Auto) 0.3 K/mm3 (0.0-0.8); Monocytes % (Auto) 3.9 % (0.0-7.3); Red Blood Count 3.39 M/mm3 (3.65-5.03); Red Cell Distribution Width 15.6 % (13.2-15.2)
[2018-10-28 00:58] LABS: Alanine Aminotransferase 76 units/L (7-56); Albumin 4.1 g/dL (3.9-5); BUN/Creatinine Ratio 4; Blood Urea Nitrogen 3 mg/dL (7-17); Calcium 8.9 mg/dL (8.4-10.2); Hemolysis Index 53
[2018-10-28] MEDS ORDERED: K-DUR PO ONE (01:06)
[2018-10-28] MEDS ORDERED: NACL 0.9% 1000 ML 1,000 ML IV ONE (01:18)
[2018-10-28] MEDS ORDERED: ZOFRAN IV ONE (01:18)
[2018-10-28] MEDS ORDERED: MORPHINE IV ONE (01:19)
--- NOTE | 2018-10-28 01:26 | Emergency Department Report ---
HPI - General Chief Complaint: Headache Time Seen by Provider: 10/28/18 01:05 - HPI HPI: 53-year-old -Chinese female presents to the emergency department from home with complaint of some right-sided low back pain, hip pain that radiates down the right leg to the foot. She also complains of some left foot pain that is like pins and needles. She has some decreased appetite along with some nausea and vomiting. The patient says that this has been going on and getting slightly worse and she had an injury in which she passed out, fell, and hurt her back, in August of this year. She was seen here and had an x-ray done that showed an L1 superior endplate minor compression fracture. She has seen Dr. Arechiga, orthopedist, and has been set up to get physical therapy this coming . Her primary care physician is Dr. Singh at . The patient has a past medical history of osteoarthritis, asthma, migraines, hypertension, hypothyroidism, asthma, high cholesterol. She says that she took some unknown medication from her daughter, as well as a few different [id number] medications, without any relief. No recent travel or sick contacts at home. ED Past Medical Hx - Past Medical History Previous Medical History?: Yes Hx Hypertension: Yes Hx Heart Attack/AMI: No Hx Congestive Heart Failure: No Hx Diabetes: Yes Hx Deep Vein Thrombosis: No Hx Pulmonary Embolism: No Hx GERD: No Hx Arthritis: Yes Hx Headaches / Migraines: Yes Hx Seizures: Yes ("I had one seizure a long time ago") Hx Asthma: Yes Hx COPD: No Hx Tuberculosis: No Hx Dementia: No Hx HIV: No Additional medical history: asthma, HTN, Hypothyroid, High Cholesterol, and smoker - Surgical History Past Surgical History?: Yes Hx Coronary Stent: No Hx Pacemaker: No Hx Internal Defibrillator: No Additional Surgical History: removed thyroid - Social History Smoking Status: Former Smoker Substance Use Type: None - Medications Home Medications: Home Medications Medication Instructions Recorded Confirmed Last Taken Type ALPRAZolam [Xanax TAB] 0.5 mg PO BID 05/12/18 05/12/18 Unknown History DULoxetine [Cymbalta] 30 mg PO QDAY 05/12/18 05/12/18 Unknown History Quetiapine Fumarate [SEROquel] 50 mg PO QDAY 05/12/18 05/12/18 Unknown History Vortioxetine Hydrobromide 20 mg PO QDAY 05/12/18 05/12/18 Unknown History [Trintellix] Aspirin EC 81 mg PO QDAY #30 tablet. 05/16/18 Unknown Rx Diphenoxylate/Atropine [Lomotil] 1 tab PO Q6H PRN #60 tablet 05/16/18 Unknown Rx Benzocaine/Mentho [Cepacol X 1 each MM Q2HR PRN #30 packet 05/18/18 Unknown Rx Strength] Furosemide [Lasix] 20 mg PO QDAY #7 tablet 05/18/18 Unknown Rx Metoprolol Succinate [Toprol Xl] 25 mg PO DAILY #30 tab.er.24h 05/18/18 Unknown Rx Phenol 1.4% [Chloraseptic] 1 spray MM PRN PRN #1 bottle 05/18/18 Unknown Rx Potassium Chloride [K-Dur] 20 meq PO QDAY #7 tablet 05/18/18 Unknown Rx Acetaminophen [Tylenol Extra 1,000 mg PO QID 1 Days #30 tablet 08/06/18 Unknown Rx Strength] Amoxicillin/Potassium Clav 1 each PO BID 10 Days #20 tablet 08/06/18 Unknown Rx [Augmentin 875-125 Tablet] HYDROcodone/ACETAMINOPHEN 1 each PO Q8H PRN #12 tablet 08/06/18 Unknown Rx [Hydrocodone-Acetamin 5-325 mg] diphenhydrAMINE [Benadryl CAP] 25 mg PO Q8H PRN 2 Days #30 capsule 08/06/18 Unknown Rx ED Review of Systems ROS: Stated complaint: RT SIDE NUMBNESS, DIARRHEA VOMITING Other details as noted in HPI Comment: All other systems reviewed and negative Constitutional: denies: chills, fever Eyes: denies: eye pain, vision change ENT: denies: ear pain, throat pain Respiratory: denies: cough, shortness of breath Cardiovascular: denies: chest pain, palpitations Gastrointestinal: nausea, vomiting Genitourinary: denies: dysuria, discharge Musculoskeletal: back pain, arthralgia, myalgia Skin: denies: rash, lesions Neurological: paresthesias. denies: weakness, numbness Physical Exam - Physical Exam Vital Signs: Vital Signs 10/27/18 23:36 Temperature 98.8 F Pulse Rate 114 H Respiratory 18 Rate Blood Pressure 118/83 O2 Sat by Pulse 97 Oximetry Physical Exam: GENERAL: The patient is well-developed well-nourished. HENT: Normocephalic. Atraumatic. Patient has moist mucous membranes. EYES: Extraocular motions are intact. NECK: Supple. Trachea is midline. CHEST/LUNGS: Clear to auscultation. There is no respiratory distress noted. HEART/CARDIOVASCULAR: Regular. There is no tachycardia. There is no murmur. ABDOMEN: Abdomen is soft, nontender. Patient has normal bowel sounds. SKIN: Skin is warm and dry. NEURO: The patient is awake, alert, and oriented. The patient is cooperative. The patient has no focal neurologic deficits. The patient has normal speech. MUSCULOSKELETAL: There is increased right lower extremity pain with leg exten young.. There is no limitation range of motion. There is no evidence of acute injury. BACK: No midline thoracic or lumbar tenderness to palpation, step-off or deformity. There is some right-sided paraspinal tenderness to palpation of the lumbar spine. ED Course Vital Signs 10/27/18 23:36 Temperature 98.8 F Pulse Rate 114 H Respiratory 18 Rate Blood Pressure 118/83 O2 Sat by Pulse 97 Oximetry ED Medical Decision Making - Lab Data Result diagrams: 10/28/18 00:03 10/28/18 00:03 - Radiology Data Radiology results: report reviewed PROCEDURE: XR FEMUR 2+V RT TECHNIQUE: AP and lateral views of the right femur HISTORY: right hip and leg pain COMPARISONS: FINDINGS: The bones are normally aligned and mineralized. The right hip joint is normally aligned There is no evidence of acute fracture or subluxation. The soft tissues are unremarkable. IMPRESSION: No evidence of acute fracture or subluxation PROCEDURE: XR SPINE LUMBOSACRAL 2-3V TECHNIQUE: 2 views of the lumbar spine HISTORY: back pain, hx of L1 compression fx COMPARISONS: 10/28/2018 FINDINGS: There is been interval development of sclerosis along the superior L1 endplate consistent with callus formation. T12 and L2-L5 are normal in height and alignment. The disc spaces are well preserved. There is diffuse atherosclerotic calcification of the abdominal aorta. IMPRESSION: Interval sclerosis along the superior L1 endplate consistent with callus formation. This document is electronically signed by Wendi Esparza MD., October 28 2018 02:06:38 AM ET Transcribed By: MAMADOU Dictated By: WENDI ESPARZA MD Electronically Authenticated By: WENDI ESPARZA MD Signed Date/Time: 10/28/18 0208 - Medical Decision Making This patient presents to the emergency department with some continued acute on chronic right lower extremity pain from the low back and buttock all the way down to the foot, as well as some left foot pain. The back and right lower extremity pain appears suspicious for sciatica. Her description of the left foot pain sounds more consistent with peripheral neuropathy. The patient says that she had some type of a fracture from a fall in August and going back in the records it appeared that she had some superior L1 endplate compression fracture. This x-ray was repeated that shows interval sclerosis with callus formation but no acute process. An x-ray was also done of the right femur does not show any acute process. The patient's labs show some mild hypokalemia, some elevated liver enzymes, and a blood alcohol level of 0.16. Patient at one point had mentioned something about a headache but says it is very mild now and consistent with her previous headaches that she has been getting over the past 1-2 years. The patient has good follow-up with primary care and orthopedist and is set up for physical therapy on , 3 days. Since the patient had elevated blood alcohol level today, along with elevated liver enzymes, I have suspicion that the patient may drink regularly. However she does not have any complaint of any abdominal pain at this time. The patient was seen in the emergency department and appears stable. She says that she has some Lyrica at home to use for the peripheral neuropathy. She will be discharged home to follow up with primary care and an orthopedist. She will return to the ER with any worsening of her symptoms or any acute distress. - Differential Diagnosis sciatica, peripheral neuropathy, spinal fracture, cellulitis Critical Care Time: No Critical care attestation.: If time is entered above; I have spent that time in minutes in the direct care of this critically ill patient, excluding procedure time. ED Disposition Clinical Impression: Alcohol use, Left foot pain, Pain in right leg, Elevated LFTs, Hypokalemia Sciatica Qualifiers: Laterality: right Qualified Code(s): M54.31 - Sciatica, right side Low back pain Qualifiers: Chronicity: acute Back pain laterality: right Sciatica presence: with sciatica Sciatica laterality: sciatica of right side Qualified Code(s): M54.41 - Lumbago with sciatica, right side Disposition: - TO HOME OR SELFCARE Is pt being admited?: No Condition: Stable Instructions: Hypokalemia (ED), Sciatica (ED), Peripheral Neuropathy (ED), Arthralgia (ED) Additional Instructions: Please follow up with her primary care physician and orthopedist in the next few days. I am giving a referral for a local solids control technician, Dr. Morton, to follow up regarding your elevated liver enzymes. I recommend that you stay away from any further alcohol use. Return to the emergency Department with any worsening of your symptoms or any acute distress. Referrals: HYACINTH ARECHIGA MD [Staff Physician] - 3-5 Days JOSÉ LUIS MORTON MD [Staff Physician] - 3-5 Days Time of Disposition: 04:47
[2018-10-28 01:48] LABS: Platelet Count 127 K/mm3 (140-440)
--- NOTE | 2018-10-28 02:08 | XRay Report ---
PROCEDURE: XR SPINE LUMBOSACRAL 2-3V TECHNIQUE: 2 views of the lumbar spine HISTORY: back pain, hx of L1 compression fx COMPARISONS: 10/28/2018 FINDINGS: There is been interval development of sclerosis along the superior L1 endplate consistent w ith callus formation. T12 and L2-L5 are normal in height and alignment. The disc spaces are well pres erved. There is diffuse atherosclerotic calcification of the abdominal aorta. IMPRESSION: Interval sclerosis along the superior L1 endplate consistent with callus formation. This document is electronically signed by Xuan Esparza MD., October 28 2018 02:06:38 AM ET
--- NOTE | 2018-10-28 02:11 | XRay Report ---
PROCEDURE: XR FEMUR 2+V RT TECHNIQUE: AP and lateral views of the right femur HISTORY: right hip and leg pain COMPARISONS: FINDINGS: The bones are normally aligned and mineralized. The right hip joint is normally aligned There is no e vidence of acute fracture or subluxation. The soft tissues are unremarkable. IMPRESSION: No evidence of acute fracture or subluxation This document is electronically signed by Xuan Esparza MD., October 28 2018 02:09:02 AM ET
[2018-10-28] MEDS ORDERED: POTASSIUM CHLORIDE FEEDTUBE ONE (02:36)
[2018-10-28] MEDS ORDERED: VITAMIN B-1 100 MG, FOLVITE 1 MG, INFUVITE 10 ML in NACL 0.9% 1000 ML 1,000 ML IV ONE (02:37)
[2018-10-28] MEDS ORDERED: TORADOL IV ONE (03:29)
[2018-10-28 05:52] VITALS: BP 120/84
== END 2018-10-28 05:52 | disposition home or self-care (01) ==
LOC: ED 23:20
DX: M54.41 Lumbago with sciatica, right side (principal); E87.6 Hypokalemia; R94.5 Abnormal results of liver function studies; R11.2 Nausea with vomiting, unspecified; R55 Syncope and collapse; I10 Essential (primary) hypertension; E11.9 Type 2 diabetes mellitus without complications; M19.90 Unspecified osteoarthritis, unspecified site; G43.909 Migraine, unspecified, not intractable, without status migrainosus; J45.909 Unspecified asthma, uncomplicated; E03.9 Hypothyroidism, unspecified; E78.00 Pure hypercholesterolemia, unspecified; Z90.89 Acquired absence of other organs; Z87.891 Personal history of nicotine dependence; Z79.899 Other long term (current) drug therapy; W19.XXXA Unspecified fall, initial encounter; Y93.89 Activity, other specified; Y92.89 Other specified places as the place of occurrence of the external cause; Y99.8 Other external cause status
CPT/HCPCS: 36415; 72100; 73552; 80053; 83690; 84443; 85025; 96361; 96365; 96375; 99284; G0480; J2270; J2405; J3411; J7030; 80320